=== PATIENT | male | born 1945 | race Caucasian/White ===

== ENCOUNTER 2024-09-09 10:51 | Outpatient (CLI) | payer MEDICARE, SELFPAY ==
--- OUTSIDE RECORDS SUMMARY | 2024-09-09 11:19 | XMS_ITS | Continuity of Care Document ---
Author Organization [place] - 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 Name Role Phone ROSALVA BERMAN Primary Care Provider Assessment Encounter Date Assessment Date Assessment LastModified by Organization Details LastModified Time 08/27/2024 08/27/2024 obtain health trax, repeat course of doxy as pt feels of all the things he has tried recently this has helped the most trial of breztri f/u with pulm to establish as scheduled next week trial of flonase [email or web address] Not available 08/27/2024 15:08:14 Plan of Treatment Reminders Order Date Submit Date Provider Last Modified By Organization Details Last Modified Time Details Appointments OV EST 15 2024 08:15A Kelle Argueta MD Not available Not available Not available Lab None recorded. Referral None recorded. Procedures None recorded. Surgeries None recorded. Imaging None recorded. Medication Orders fluticaso ne propionat e 50 mcg/actua tion nasal spray,yadiel pension 2024 025 [facility], [address] [place] [address], [phone], 08/27/2024 17:32:44 doxycycli ne hyclate 100 mg tablet 2024 025 [facility], [address] [place] [address], [id number], 08/27/2024 17:32:44 Patient TargetsNo targets recorded. Patient InstructionsNo instructions recorded. Reason for Referral None Reported. Problems Name Problem SNOMED Code Status Onset Date Resolution Date Notes Provider Name and Address Organization Details Recorded Time Spinal stenosis of lumbar region 05624766 Active 2023 Fidelina Montgomery null, [place] - [facility] & [place] 4 15:11:51 Degeneration of lumbar intervertebra l disc 14376512 Active 2023 Fidelina Montgomery null, [place] [facility] [facility] & [place] 4 15:12:30 Radicular pain 17348199 Active 2023 Fidelina Montgomery [place] [facility] & [place] 4 15:12:38 Lumbar radiculopathy 760855258 Active 2023 Fidelina Montgomery null, [place] - [place] - [facility] & [place] 4 15:19:48 Lumbar spondylosis 041363697 Active 2023 Fidelina Montgomery null, [place] - [facility] - [facility] & [place] 4 08:57:43 Cholangiectas is 582790895 Active 2022 Not Available [facility] 3 04:32:31 Nausea and vomiting 86438286 Active 2022 Not Available [facility] 3 04:32:31 Pancreatic duct disorder 804844030 Active 2022 Louie Sofia PA-C [address], [place], [address] , [place] - [place] - [place] & [place] 3 09:49:33 Prediabetes 233042548 Active 2023 Rosalva Cazares MD [address], [place], [address] , [place] [facility] - [place] & [place] 4 09:14:00 Hyperlipidemi a 47589777 Active 2023 Rosalva Cazares MD [address], [place], [address] , [place] - [place] & [place] 4 09:14:01 Essential hypertension 74573360 Active 2023 Rosalva Cazares MD [address], [place], [address] , [place] - [place] & [place] 4 09:14:10 Benign prostatic hyperplasia 367149875 Active 2023 Rosalva Cazares MD [address], [place], [address] , [place] - [place] & [place] 4 09:17:03 Eczema of external auditory canal 97349068 Active 2023 Roslava Cazares MD [address], [place], [address] , [place] [facility] - [place] & [place] 4 09:17:04 Thyroid function tests abnormal 686941935 Active 2023 Rosalva Cazares MD [address], [place], [address] , [place] [facility] - [place] & [place] 4 09:18:00 Problem Notes None recorded. Procedures Surgical History Date Name Laterality Status Provider Name and Address Organization Details Recorded Time 04/28/19 21 colonoscopy completed Briseida Mays [place] - [facility] & [place] 06/01/2022 10:40:13 06/16/19 18 cardiac catheterization completed Briseida Mays [place] - [facility] & [place] 06/01/2022 10:39:22 03/06/19 17 cataract surgery completed Briseida Mays [place] - [facility] - [place] & [place] 06/01/2022 10:38:20 03/06/19 15 colonoscopy completed Briseida Mays [place] - [facility] - [place] & [place] 06/01/2022 10:37:44 03/06/19 10 colonoscopy completed Briseida Mays [place] - [facility] - [place] & [place] 06/01/2022 10:37:33 blepharoplasty completed Briseida MCKEON - [facility] - [place] & [place] 06/01/2022 10:36:55 dental surgical procedure completed Haley Melton [place] - [facility] & [place] 11/15/2023 15:33:10 Imaging Results None recorded. Procedure Notes None recorded. Medical Equipment None Reported. Allergies Allergen ID Allergen Name Allergen Category Reaction Reaction Severity Criticality Documentation Date Start Date Code Code System Note Provider Name and Address Organization Details Recorded Time 953058 No known allergy (situatio n) Not available Not available Not available Not available 07/25/2024 53537 6003 [facility] [place] 11:03:07 No known drug allergies Medications Name Sig Start Date Stop Date Status Note LastModified by Organization Details LastModified Time amoxicillin 500 mg capsule Take 1 capsule twice a day by oral route for 20 days. 03/14 completed Not Available Not Available Not Available atorvastati n 40 mg tablet TAKE ONE TABLET BY MOUTH ONCE DAILY active Not Available Not Available No t Available doxycycline hyclate 100 mg capsule Take 1 capsule twice a day by oral route for 10 days. 08/27 completed Not Available Not Available Not Available azithromyci n 250 mg tablet TAKE 2 TABLETS (500 MG) BY ORAL ROUTE ONCE DAILY FOR 1 DAY THEN 1 TABLET (250 MG) BY ORAL ROUTE ONCE DAILY FOR 4 DAYS 04/25 completed Not Available Not Available Not Available benzonatate 200 mg capsule Take 1 capsule 3 times a day by oral route as needed for 7 days. 05/29 completed Not Available Not Available Not Available hydrocodone 5 mg-acetamin ophen 325 mg tablet TAKE ONE TABLET BY MOUTH EVERY SIX HOURS NEEDED FOR PAIN 04/24 completed Not Available Not Available Not Available lisinopril 20 mg tablet TAKE 1 TABLET BY MOUTH TWICE DAILY active Not Available Not Available No t Available prednisone 20 mg tablet take 3 tabs daily for 3 days, 2 tabs daily for 3 days, then 1 tab daiy for 3 days 05/29 completed Not Available Not Available Not Available sildenafil 100 mg tablet Take 1 tablet by oral route as directed. 04/24 completed Not Available Not Available Not Available tamsulosin 0.4 mg capsule Take 2 capsules every day by oral route for 90 days. active Not Available Not Available No t Available hydrocortis one-acetic acid 1 %-2 % ear drops INSTILL 2 DROPS INTO AFFECTED EAR(S) BY OTIC ROUTE 4 TIMES PER DAY 12/27 completed Not Available Not Available Not Available cephalexin 500 mg capsule TAKE ONE CAPSULE BY MOUTH EVERY SIX HOURS 06/13 completed Not Available Not Available Not Available simvastatin 20 mg tablet TAKE ONE TABLET BY MOUTH EVERY DAY 06/13 completed Not Available Not Available Not Available gabapentin 300 mg capsule TAKE ONE CAPSULE BY MOUTH EVERY 8 HOURS DIRECTED active Not Available Not Available No t Available diclofenac sodium 75 mg tablet,nubia yed release Take 1 tablet every 24 hours by oral route as directed for 30 days. 2024 active Not Available Not Available Not Avai lable hydrochloro thiazide 25 mg tablet TAKE ONE TABLET BY MOUTH EVERY MORNING active Not Available Not Available No t Available clobetasol 0.05 % topical ointment Apply a thin layer to affected areas twice daily for 2 weeks. Stop for 1 week. Repeat as needed. active Not Available Not Available No t Available ibuprofen 600 mg tablet TAKE ONE TABLET BY MOUTH EVERY SIX HOURS NEEDED FOR PAIN 04/24 completed Not Available Not Available Not Available albuterol sulfate HFA 90 mcg/actuati on aerosol inhaler inhale 2 puffs every 6 hours As Needed for shortness of breath or wheezing for 90 days active Not Available Not Available No t Available ondansetron 4 mg disintegrat ing tablet dissolve 1 tablet on the tongue Every 8 (Eight) Hours As Needed for Nausea or Vomiting. 12/12 completed Not Available Not Available Not Available fluticasone propionate 50 mcg/actuati on nasal spray,suspe nsion use 1 spray in each nostril daily active Not Available Not Available No t Available doxycycline hyclate 100 mg tablet Take 1 tablet twice a day by oral route for 10 days. active Not Available Not Available No t Available finasteride 5 mg tablet Take 1 tablet every day by oral route. active Not Available Not Available No t Available calcipotrie ne 0.005 % topical ointment Apply a thin layer to affected areas two times daily when flared. active Not Available Not Available No t Available diclofenac 1 % topical gel apply 4 gm to affected area up to 4 times daily 06/13 completed Not Available Not Available Not Available silodosin 8 mg capsule Take 1 capsule by mouth every day 08/15 completed Not Available Not Available Not Available Breztri Aerosphere 160 mcg-9mcg-4. 8mcg/actuat ion HFA aerosol inhaler inhale 2 puffs twice a day for 90 days active Not Available Not Available No t Available Airsupra 90 mcg-80 mcg/actuati on HFA aerosol inhaler 2 inhalatio ns as needed by inhalatio n route. 02/04 completed Not Available Not Available Not Available Vitals Date Recorded Body height Body mass index (BMI) Body weight Body temperature Oxygen saturation Oxygen saturation in Arterial blood by Pulse oximetry Heart rate Systolic And Diastolic Provider Name and Address Organization Details Last Updated DateTime 5 177.8 cm 29.4 kg/m2 24887.4 4 g 99.1 [degF] 95 % 95 % 92 /min 140/62 mm[Hg] Roseanna Buckner [facility] & [place] 5 14:10:06 Social History Question Answer Notes LastModified by Organizat ion Details LastModified Time Tobacco Smoking Status Former Smoker Briseida Mays [facility], [facility] & [place] 06/01/2022 10:45:54 Do You Have An Advance Directive? No [email or web address] Information not available 06/13/2022 Are You Blind Or Do You Have Difficulty Seeing? No [email or web address] Information not available 12/02/2022 What Is Your Level Of Caffeine Consumption? Occasional Information not available 12/12/2022 In The 14 Days Before Symptom Onset, Have You Had Close Contact With A Laboratory-confir med COVID-19 While That Case Was Ill? No Information not available 12/12/2022 In The 14 Days Before Symptom Onset, Have You Had Close Contact With A Person Who Is Under Investigation For COVID-19 While That Person Was Ill? No Information not available 12/12/2022 Have You Been To An Area Known To Be High Risk For COVID-19? No Information not available 12/12/2022 Are You Deaf Or Do You Have Serious Difficulty Hearing? No Wears Hearing Aids Information not available 12/12/2022 Have You Processed Blood Or Body Fluids From An Ebola Virus Disease Patient Without Appropriate PPE? No Information not available 12/12/2022 Do You Reside In Or Have You Traveled To An Area Where Ebola Virus Transmission Is Active? No Information not available 12/12/2022 Have There Been Any Changes To Your Family Or Social Situation? No Information no t available 12/12/2022 When Did You Quit Smoking? 16+yearssince alverto Information not available 12/12/2022 Have You Recently Or Are You Planning To Travel To An Area With Zika Virus? No Information not available 12/12/2022 In General, Would You Say Your Health Is Very Good [email or web address] Information not available 06/13/2022 How Would You Describe The Condition Of Your Mouth And Teeth including False Teeth Or Dentures? Fair [email or web address] Information not available 06/12/2023 In The Past 7 Days, How Many Servings Of Fruits And Vegetables Did You Typically Eat Each Day? (1 Serving = 1 Cup Of Fresh Vegetables, 1 2 Cup Of Cooked Vegetables, Or 1 Medium Piece Of Fruit. 1 Cup = Size Of A Baseball.) 1-2 Servings Per Day [email or web address] Information not available 06/12/2023 In The Past 7 Days, How Many Servings Of High Fiber Or Whole Grain Foods Did You Typically Eat Each Day? (1 Serving = 1 Slice Of 100% Whole Wheat Bread, 1 Cup Of Whole-grain Or High-fiber Gaitc-bt-imp Cereal, 1 2 Cup Of Cooked Cereal Such As Oatmeal, Or 1 2 Cup Of Cooked Brown Rice Or Whole Wheat Pasta.) 1-2 Servings Per Day [email or web address] Information not available 06/12/2023 In The Past 7 Days, How Many Servings Of Fried Or High-fat Foods Did You Typically Eat Each Day? (Examples Include Fried Chicken, Fried Fish, [place], English [place], Potato Chips, York Chips, Doughnuts, Creamy Salad Dressings, And Foods Made With Whole Milk, Cream, Cheese, Or Mayonnaise.) 1-2 Servings Per Day [email or web address] Information not available 06/12/2023 In The Past 7 Days, How Many Sugar-sweetened (not Diet) Beverages Did You Typically Consume Each Day 0 Drinks Per Day [email or web address] Information not available 06/12/2023 Each Night, How Many Hours Of Sleep Do You Usually Get? 6-7 Hours [email or web address] Information not available 06/13/2022 Do You Snore Or Has Anyone Told You That You Snore? Yes [email or web address] Information not available 06/13/2022 In The Past 7 Days, How Often Have You Bland Sleepy During The Daytime? Usually [email or web address] Information not available 06/13/2022 Do You Have Chronic Pain? Yes [email or web address] Information not available 06/13/2022 If Yes, Location Of Pain Back, Legs [email or web address] Information not available 06/12/2023 In The Past 7 Days, How Would You Rate Your Pain? Mild Pain(1-3) [email or web address] Information not available 06/13/2022 Are You In A Pain Management Program? No [email or web address] Information not available 06/13/2022 Do You Take Opioids For Your Pain? No [email or web address] Information not available 06/12/2023 How Often Is Stress A Problem For You In Handling Such Things As: Your Health, Your Finances, Your Family And Social Relationships, Your Work? Sometimes [email or web address] Information not available 06/12/2023 How Often Do You Get The Social And Emotional Support You Need: Usually [email or web address] Information no t available 06/13/2022 In The Past 7 Days, Did You Need Help From Others To Take Care Of Things Such As Laundry And Housekeep- Ing, Banking, Shopping, Using The Telephone, Food Preparation, Transportation, Or Taking Your Own Medications? No [email or web address] Information not available 06/13/2022 Do You Live Alone? No [email or web address] Information not available 06/13/2022 Does Your Home Have Any Fall Risks (un-level Floors, Unfastened Rugs, Poor Lighting, Etc)? No [email or web address] Information not available 06/13/2022 What Was The Date Of Your Most Recent Tobacco Screening? 01/08/2024 [email or web address] Information not available 01/11/2024 What Is Your Current Pack Years? 30ormorepacky ears Information not available 12/12/2022 Do You Use Your Seat Belt Or Car Seat Routinely? Yes Information not available 12/12/2022 At What Age Did You Start Smoking Tobacco? 17 Information not available 12/12/2022 Are You Passively Exposed To Smoke? No Information no t available 12/02/2022 How Much Tobacco Do You Smoke? 1 PPD [email or web address] Information not available 01/11/2024 Has Tobacco Cessation Counseling Been Provided? No Information not available 12/12/2022 How Many Years Have You Smoked Tobacco? 31 Information not available 06/13/2022 Do You Have Difficulty Walking Or Climbing Stairs? No Information not available 12/12/2022 Are You Currently In School? No Information not available 12/12/2022 Sex: Male Functional Status Question Answer Note LastModified by Organizat ion Details LastModified Time Do you use any illicit or recreational drugs? No Information not available 06/01/2022 Do you or have you ever used any other forms of tobacco or nicotine? Yes Information not available 12/12/2022 What is your level of alcohol consumption? Occasional [email or web address] Information not available 12/02/2022 Do you or have you ever used smokeless tobacco? Currently chews tobacco Information not available 06/01/2022 Do you have transportation difficulties? No Information not available 12/12/2022 Are you able to walk? YESWOREST Information not available 12/12/2022 Do you have difficulty doing errands alone? No Information not available 12/12/2022 Are you able to care for yourself? Yes Information n ot available 12/12/2022 Do you have difficulty dressing or bathing? No Information not available 12/12/2022 Do you or have you ever used e-cigarettes or vape? Never used electronic cigarettes Information not available 12/12/2022 What is your exercise level? Occasional [email or web address] Information not available 12/02/2022 Mental Status Question Answer Note LastModified by Organizat ion Details LastModified Time Do you feel stressed (tense, restless, nervous, or anxious, or unable to sleep at night)? [id number] [email or web address] Information not available 06/13/2022 Do you have difficulty concentrating, remembering or making decisions? No Information no t available 12/12/2022 Family History Relationship Description Onset Age of this Age Resolved Age Notes LastModified by Organization Details LastModified Time Father Heart disease [email or web address] Not available 2022 10:14:51 Father Family history of diabetes mellitus [email or web address] Not available 2024 09:02:18 Father Family history of blood coagulation disorder [email or web address] Not available 2024 09:02:18 Father Family member [email or web address] Not available 2024 09:02:18 Father Hypertensive disorder pt. added direct ly (01/07) [email or web address] Not available 01/08/2024 09:13:35 Mother Heart disease [email or web address] Not available 2022 10:14:51 Mother Malignant tumor of breast [email or web address] Not available 2024 09:02:18 Brother Essential hypertension [email or web address] Not available 09:02:18 Brother Hypertensive disorder pt. added direct ly (01/07) [email or web address] Not available 01/08/2024 09:13:35 Medical History Condition Response Diabetes N Heart Problems Other Y Vision or Eye Problems Y Ear or Hearing Problems Y Back Problems Y COPD Y High Cholesterol N Spine Problems Y Obstructive Sleep Apnea Y Hypertension Y Immunizations Vaccine Type Date Status Note Provider Nam e and Address Organization Details Recorded Time Influenza, high-dose, quadrivalent, PF 2 completed Bess oswald [place] - [facility] 08/16/2023 13:23:51 Influenza, high-dose, quadrivalent, PF 0 completed Bess oswald, [place] [facility] [facility] 08/16/2023 13:23:51 Influenza, high-dose, quadrivalent, PF 1 completed Bess oswald [place] [facility] [facility] & [place] 08/16/2023 13:23:51 COVID-19, mRNA, LNP-S, PF, 100 mcg/0.5mL dose or 50 mcg/0.25mL dose 1 completed Bess oswald [place] [facility] [facility] & [place] 08/16/2023 13:23:51 COVID-19, mRNA, LNP-S, PF, 100 mcg/0.5mL dose or 50 mcg/0.25mL dose 1 completed Bess Cullen null[place] [facility] - [place] & [place] 08/16/2023 13:23:51 COVID-19, mRNA, LNP-S, PF, 100 mcg/0.5mL dose or 50 mcg/0.25mL dose 0 completed Bess [place] null[place] - [place] & [place] 08/16/2023 13:23:51 Tdap 6 completed Bess [place] & [place] 08/16/2023 13:23:51 Influenza, high-dose, trivalent, PF 8 completed Bess [place] [facility] [place] 08/16/2023 13:23:51 Influenza, high-dose, trivalent, PF 7 completed Bess [place] [facility] [place] 08/16/2023 13:23:51 Hep A, adult 8 completed Bess [place] - [place] & [place] 08/16/2023 13:23:51 Influenza, adjuvanted, quadrivalent, PF 3 completed Bess [place] & [place] 08/16/2023 13:23:51 pneumococcal polysaccharide PPV23 3 completed Bess [place] & [place] 08/16/2023 13:23:51 Influenza, adjuvanted, trivalent, PF 4 completed Rosalva Cazares MD [address] , [place], [address], [place] [facility] [facility] [place] 12/28/2023 12:54:14 RSV, bivalent, protein subunit RSVpreF, diluent reconstituted, 0.5 mL, PF 4 completed Bess [place] - [place] & [place] 04/25/2024 13:11:01 COVID-19, mRNA, LNP-S, PF, jose-sucrose, 30 mcg/0.3 mL 4 completed Bess [facility], [place] - [place] - [place] & [place] 04/25/2024 13:11:01 Past Encounters Encounter ID Performer Location Encounter Start Date Encounter Closed Date Diagnosis/Indication Diagnosis SNOMED-CT Code Diagnosis ICD10 Code Diagnosis Note [id number] JOHN GARCIA PA-C [facility] [address] [place] [address] 08/08/2024 10:38:18 08/08/2024 11:21:28 Pain of left hip joint 7070358442 79209 M25.552 - I have reviewed the left hip x-ray, which revealed mild degenerati ve joint disease. Lumbar spondylosis 86520 0009 M47.816 - The patient is 1 week S/P bilateral lumbar RFA at L4-S1. The patient voices that he is uncertain regarding efficacy at this time. 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 I informed the patient that more time is likely required to realize the extent of benefit.- I will follow up in 1 month to reassess pain. Spinal gene nosis of lumbar region 89265140 M99.53 M48.061 - The previously (01/24/24) performed lumbar epidural was successful in decreasing radicular low back pain by greater than 50%. Degenerati on of lumbar intervertebral disc 80144808 M51.369 Lumbar radiculopathy 128 162214 M54.16 - I have reviewed the lumbar MRI, which revealed multilevel disc degenerati on and spondylosi s with areas of neural foraminal narrowing (worst bilaterall y at L4-L5); central canal stenosis at L2-L3 and L3-L4; right L4 nerve root impingemen t and probable right L3 nerve root impingemen t.- If radicular low back pain worsens, I will likely discuss the possibilit y of scheduling a TFESI versus repeating a lumbar epidural (interlami batool). Trochanter ic bursitis of left hip [id number] 28599 M70.62 - The patient is S/P (04/03/24) left GTB injection, which was successful (greater than 50% pain relief). Lumbago with sciatica 20 6381825 M54.40 - Refill Diclofenac 75 mg Q12 hours prn- The patient recently followed up with cardiology , whom reportedly recommende d that the patient continue Diclofenac rather than Celecoxib. Radicular pain 08995217 M54.10 - Refill Gabapentin 300 mg Q8 hours [id number] Rosalva Cazares MD [facility] [place] [address] [place] [address] 08/27/2024 14:02:47 08/27/2024 15:06:09 Cough 04432477 R05.9 Dysfunctio n of right eustachian tube 9458952961 365864 H69.91 Health Concerns Section Related Observation LastModified by Organization Detai ls LastModified Time None Recorded Concern Status LastModified by Organization Details LastModified Time None Recorded Payers Encounter Date Sequence Insurance Name Policy Number Policy Baugh Covered Member ID Baugh Member ID Guarantor Name 08/27/2024 1 [place]MEDICARE REPLACEMENT HMO) [id number] Nash Galeas [id number] Nash Galeas Notes Date Note Type Note Provider Name and Address Organization Details Recorded Time 08/27/2024 text/html He notes that he did improve with the course of doxy we had recently used and felt 90% better but the cough gradually returned and 3 days ago he had worsening cough and phlegm production. He does feel fatigued. He denies any known sick contacts.He has had a persistent waxing and waning picture of URI type illness over the past couple months. He denies known hx of seasonal or environmental allergens but does have chronic respiratory illness that was unable to be categorized by his previous ip technology transactions attorney. He has a pending appt next week with a new pulm to establish care. Rosalva Cazares MD [address], [place], [address], [facility] - [place] - [place] & [place] 08/27/2024 15:08:21
--- OUTSIDE RECORDS SUMMARY | 2024-09-09 11:19 | XMS_ITS | Clinical Summary ---
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
--- OUTSIDE RECORDS SUMMARY | 2024-09-09 11:19 | XMS_ITS | Data Portability ---
Author Organization [place] - [facility] - [place] [facility] ADMIN Address [address] [place] [id number] Care Team Providers Care Head Cleaning Porter Name Role Phone ROSALVA BERMAN Primary Care Provider Assessment Encounter Date Assessment Date Assessment LastModified by Organization Details LastModified Time 05/02/2024 05/02/2024 Mr. Galeas was referred by Dr. Cazares for management of chronic low back pain. The patient denies DM, anti-coagulant use, and history of MRSA. [email or web address] Not available 05/02/2024 12:48:29 05/29/2024 05/29/2024 Mr. Galeas was referred by Dr. Cazares for management of chronic low back pain. The patient denies DM, anti-coagulant use, and history of MRSA. patient returns back to schedule for the radiofrequency ablation [email or web address] Not available 06/05/2024 13:39:35 07/25/2024 07/25/[address] scan, and prior testing. We decided that we may try for a course of doxycycline for anti-inflammatory benefit as well as potential antimicrobial efforts but discussed that symptoms may be fungal in nature versus irritant versus allergic. Testing is ordered as noted below but discussed with patient that more advanced testing for allergies likely is warranted and maybe more accurate. We will also plan for him to try cetirizine nightly. We have discussed workup options for evaluating acid reflux, such as laryngoscopy and EGD. There is no prior evidence of a hiatal hernia on his previous CT scans. Patient is agreeable to consultation with pulmonology. We also plan for a short-term trial of breast previous sample. Not available 07/25/2024 13:06:01 08/08/2024 08/08/2024 Mr. Galeas was referred by Dr. Cazares for management of chronic low back pain. The patient denies DM, anti-coagulant use, and history of MRSA. The patient presents to the clinic today for a medication refill. [email or web address] Not available 08/11/2024 20:14:48 08/27/2024 08/27/2024 obtain health trax, repeat course of doxy as pt feels of all the things he has tried recently this has helped the most trial of breztri f/u with pulm to establish as scheduled next week trial of flonase Not available 08/27/2024 15:08:14 Plan of Treatment Reminders Order Date Submit Date Provider Last Modified By Organization Details Last Modified Time Details Appointments OV EST 15 2024 08:15A M Wilmer Argueta MD Not available Not available Not available Lab CBC w/ auto diff 2024 025 [place] [facility] ([place] [address] [place], [address], 07/30/2024 08:36:05 respirato ry allergen panel - [facility] 2024 025 [place] [facility] ([place] [address] [place], [address], 07/30/2024 08:36:06 Referral pulmonolo gist referral 2024 025 [email or web address] Lety Damon MD, [address], [place], [address], 08/29/2024 15:21:58 Procedures lumbar radiofreq uency ablation (PROC) - [address], [address], BLRF L4-S1 2024 025 [email or web address] Wilmer Argueta MD, [address], [address], [place], [address], 07/30/2024 15:56:59 Surgeries None recorded. Imaging None recorded. Medication Orders fluticaso ne propionat e 50 mcg/actua tion nasal spray,yadiel pension 2024 025 [facility], [address] [place] [address], [id number], 08/27/2024 17:32:44 doxycycli ne hyclate 100 mg tablet 2024 025 [facility], [address] [place] [address], [id number], 08/27/2024 17:32:44 gabapenti n 300 mg capsule 2024 025 [facility], [address] [place] [address], [id number], 08/15/2024 11:50:12 diclofena c sodium 75 mg tablet,de layed release 2024 025 [facility], [address] [place] [address], [id number], 08/09/2024 12:41:58 doxycycli ne hyclate 100 mg capsule 2024 025 [facility], [address] [place] [address], [id number], 08/27/2024 14:21:44 gabapenti n 300 mg capsule 2024 025 [facility], [address] [place] [address], [id number], 05/31/2024 11:52:26 diclofena c sodium 75 mg tablet,de layed release 2024 025 [facility], [address] [place] [address], [id number], 05/31/2024 11:52:26 Patient TargetsNo targets recorded. Patient InstructionsNo instructions recorded. Reason for Referral Screening Tech Referral for P ersistent cough Referring Physician: Rosalva Cazares, Family Medicine, Encounter Date: 07/25/2024 Results Created Date Observation Date Name Description Value Unit Range Abnormal Flag Note LastModifiedBy Organization Detail LastModifiedTime 04/25/19 25 04/25/2024 influ regan virus A + B + SARS- CoV-2 (COVI D19) Ag panel , rapid IA, upper respi rator y speci men FLU A negati ve Not Available [address], [place], [address], 04/25/2024 13:54:25 04/25/19 25 04/25/2024 influ regan virus A + B + SARS- CoV-2 (COVI D19) Ag panel , rapid IA, upper respi rator y speci men FLU B negati ve Not Available [address], [place], [address], 04/25/2024 13:54:25 04/25/19 25 04/25/2024 influ regan virus A + B + SARS- CoV-2 (COVI D19) Ag panel , rapid IA, upper respi rator y speci men SARS COV + SARS OV 2 negati ve Not Available [address], [place], [address], 04/25/2024 13:54:25 07/26/19 25 07/26/2024 CBC WITH DIFFE RENTI AL/PL ATELE T WBC 6.6 x10e3 /uL 3.4-10 .8 normal Not Available [facility] ([facility]) [address] [facility], [place], [address], 07/30/2024 08:36:05 07/26/19 25 07/26/2024 CBC WITH DIFFE RENTI AL/PL ATELE T RBC 4.61 x10e6 /uL 4.14-5 .80 normal Not Available [facility] ([facility]) [address] [facility], [place], [address], 07/30/2024 08:36:05 07/26/19 25 07/26/2024 CBC WITH DIFFE RENTI AL/PL ATELE T hemoglobin 13.5 g/dL 13.0-1 7.7 normal Not Available [facility] ([facility]) [address] [place], [address], 07/30/2024 08:36:05 07/26/19 25 07/26/2024 CBC WITH DIFFE RENTI AL/PL ATELE T hematocrit 42.3 % 37.5-5 1.0 normal Not Available [facility] ([facility]) [address] [place], [address], 07/30/2024 08:36:05 07/26/19 25 07/26/2024 CBC WITH DIFFE RENTI AL/PL ATELE T MCV 92 fL 79-97 normal Not Available [facility] ([facility]) [address] [place], [address], 07/30/2024 08:36:05 07/26/19 25 07/26/2024 CBC WITH DIFFE RENTI AL/PL ATELE T MCH 29.3 pg 26.6-3 3.0 normal Not Available [facility] ([facility]) [address] [place], [address], 07/30/2024 08:36:05 07/26/19 25 07/26/2024 CBC WITH DIFFE RENTI AL/PL ATELE T MCHC 31.9 g/dL 31.5-3 5.7 normal Not Available [facility] ([facility]) [address] [place], [address], 07/30/2024 08:36:05 07/26/19 25 07/26/2024 CBC WITH DIFFE RENTI AL/PL ATELE T RDW 11.9 % 11.6-1 5.4 Not Available [facility] ([facility]) [address] [place], [address], 07/30/2024 08:36:05 07/26/19 25 07/26/2024 CBC WITH DIFFE RENTI AL/PL ATELE T platelets 196 x10e3 /uL 150-45 0 normal Not Available [facility] ([facility]) [address] [facility], [place], [address], 07/30/2024 08:36:05 07/26/19 25 07/26/2024 CBC WITH DIFFE RENTI AL/PL ATELE T neutrophils 63 % not estab. normal Not Available [facility] ([facility]) [address] [facility], [place], [address], 07/30/2024 08:36:05 07/26/19 25 07/26/2024 CBC WITH DIFFE RENTI AL/PL ATELE T lymphs 22 % not estab. normal Not Available [facility] ([facility]) [address] [facility], [place], [address], 07/30/2024 08:36:05 07/26/19 25 07/26/2024 CBC WITH DIFFE RENTI AL/PL ATELE T monocytes 11 % not estab. normal Not Available [facility] ([facility]) [address] [facility], [place], [address], 07/30/2024 08:36:05 07/26/19 25 07/26/2024 CBC WITH DIFFE RENTI AL/PL ATELE T eos 3 % not estab. normal Not Available [facility] ([facility]) [address] [facility], [place], [address], 07/30/2024 08:36:05 07/26/19 25 07/26/2024 CBC WITH DIFFE RENTI AL/PL ATELE T basos 1 % not estab. normal Not Available [facility] ([facility]) [address] [facility], [place], [address], 07/30/2024 08:36:05 07/26/19 25 07/26/2024 CBC WITH DIFFE RENTI AL/PL ATELE T immature cells GLASS RIBBON MACHINE OPERATOR Not Available [facility] ([facility]) [address] [place], [address], 07/30/2024 08:36:05 07/26/19 25 07/26/2024 CBC WITH DIFFE RENTI AL/PL ATELE T neutrophils (absolute) 4.2 x10e3 /uL 1.4-7. 0 normal Not Available [facility] ([facility]) [address] [place], [address], 07/30/2024 08:36:05 07/26/19 25 07/26/2024 CBC WITH DIFFE RENTI AL/PL ATELE T lymphs (absolute) 1.5 x10e3 /uL 0.7-3. 1 normal Not Available [facility] ([facility]) [address] [place], [address], 07/30/2024 08:36:05 07/26/19 25 07/26/2024 CBC WITH DIFFE RENTI AL/PL ATELE T monocytes(ab solute) 0.7 x10e3 /uL 0.1-0. 9 normal Not Available [facility] ([facility]) [address] [place], [address], 07/30/2024 08:36:05 07/26/19 25 07/26/2024 CBC WITH DIFFE RENTI AL/PL ATELE T eos (absolute) 0.2 x10e3 /uL 0.0-0. 4 normal Not Available [facility] ([facility]) [address] [place], [address], 07/30/2024 08:36:05 07/26/19 25 07/26/2024 CBC WITH DIFFE RENTI AL/PL ATELE T baso (absolute) 0.0 x10e3 /uL 0.0-0. 2 normal Not Available [facility] ([facility]) [address] [place], [address], 07/30/2024 08:36:05 07/26/19 25 07/26/2024 CBC WITH DIFFE RENTI AL/PL ATELE T immature granulocytes 0 % not estab. Not Available [facility] ([facility]) [address] [facility], [place], [address], 07/30/2024 08:36:05 07/26/19 25 07/26/2024 CBC WITH DIFFE RENTI AL/PL ATELE T immature grans (abs) 0.0 x10e3 /uL 0.0-0. 1 Not Available [facility] ([facility]) [address] [facility], [place], [address], 07/30/2024 08:36:05 07/26/19 25 07/26/2024 CBC WITH DIFFE RENTI AL/PL ATELE T NRBC GLASS RIBBON MACHINE OPERATOR Not Available [facility] ([facility]) [address] [facility], [place], [address], 07/30/2024 08:36:05 07/26/19 25 07/26/2024 CBC WITH DIFFE RENTI AL/PL ATELE T hematology comments: GLASS RIBBON MACHINE OPERATOR Not Available [facility] ([facility]) [address] [facility], [place], [address], 07/30/2024 08:36:05 07/26/19 25 07/25/2024 ALLER GENS W/TOT AL IGE AREA 2 class description COMMEN T Level s of Speci fic IgE Class Descr iptio n of Class ----- ----- ----- ----- ----- -- ----- ----- ----- ----- ----- < 0.10 0 Negat rama 0.10 - 0.31 0/I Equiv ocal/ Low 0.32 - 0.55 I Low 0.56 - 1.40 II Moder ate 1.41 - 3.90 III High 3.91 - 19.00 IV Very High 19.01 - 100.0 0 V Very High >100. 00 Very High Not Available [facility] ([facility]) [address] [place], [address], 07/30/2024 08:36:06 07/26/1907/30/2024 ALLER GENS W/TOT AL IGE AREA 2 immunoglobul in E, total 6 IU/mL 6-495 Not Available [facility] ([facility]) [address] [place], [address], 07/30/2024 08:36:06 07/26/19 25 07/30/2024 ALLER GENS W/TOT AL IGE AREA 2 Q921-CbA D pteronyssinu s <0.10 kU/L class 0 Not Available [facility] ([facility]) [address] [place], [address], 07/30/2024 08:36:06 07/26/1907/30/2024 ALLER GENS W/TOT AL IGE AREA 2 R759-KbK D farinae <0.10 kU/L class 0 Not Available [facility] ([facility]) [address] [place], [address], 07/30/2024 08:36:06 07/26/19 25 07/30/2024 ALLER GENS W/TOT AL IGE AREA 2 J828-PyL CAT dander <0.10 kU/L class 0 Not Available [facility] ([facility]) [address] [place], [address], 07/30/2024 08:36:06 07/26/19 25 07/30/2024 ALLER GENS W/TOT AL IGE AREA 2 S942-XeP dog dander <0.10 kU/L class 0 Not Available [facility] ([facility]) [address] [place], [address], 07/30/2024 08:36:06 07/26/19 25 07/30/2024 ALLER GENS W/TOT AL IGE AREA 2 Y179-TsA mouse urine <0.10 kU/L class 0 Not Available [facility] ([facility]) [address] [place], [address], 07/30/2024 08:36:06 07/26/19 25 07/30/2024 ALLER GENS W/TOT AL IGE AREA 2 m114-UqM bermuda grass <0.10 kU/L class 0 Not Available [facility] ([facility]) [address] [place], [address], 07/30/2024 08:36:06 07/26/19 25 07/30/2024 ALLER GENS W/TOT AL IGE AREA 2 s582-SbV nasim grass <0.10 kU/L class 0 Not Available [facility] ([facility]) [address] [facility], [place], [address], 07/30/2024 08:36:06 07/26/19 25 07/30/2024 ALLER GENS W/TOT AL IGE AREA 2 f728-KnU luis miguel grass <0.10 kU/L class 0 Not Available [facility] ([facility]) [address] [place], [address], 07/30/2024 08:36:06 07/26/19 25 07/30/2024 ALLER GENS W/TOT AL IGE AREA 2 O303-HdO cockroach, tajik <0.10 kU/L class 0 Not Available [facility] ([facility]) [address] [place], [address], 07/30/2024 08:36:06 07/26/19 25 07/30/2024 ALLER GENS W/TOT AL IGE AREA 2 K406-OpA penicillium chrysogen <0.10 kU/L class 0 Not Available [facility] ([facility]) [address] [place], [address], 07/30/2024 08:36:06 07/26/19 25 07/30/2024 ALLER GENS W/TOT AL IGE AREA 2 C683-NaD cladosporium herbarum <0.10 kU/L class 0 Not Available [facility] ([facility]) [address] [place], [address], 07/30/2024 08:36:06 07/26/19 25 07/30/2024 ALLER GENS W/TOT AL IGE AREA 2 S136-OoO aspergillus fumigatus <0.10 kU/L class 0 Not Available [facility] ([facility]) [address] [place], [address], 07/30/2024 08:36:06 07/26/19 25 07/30/2024 ALLER GENS W/TOT AL IGE AREA 2 O916-QyU alternaria alternata <0.10 kU/L class 0 Not Available [facility] ([facility]) [address] [place], [address], 07/30/2024 08:36:06 07/26/19 25 07/30/2024 ALLER GENS W/TOT AL IGE AREA 2 O308-DxW maple/box elder <0.10 kU/L class 0 Not Available [facility] ([facility]) [address] [place], [address], 07/30/2024 08:36:06 07/26/19 25 07/30/2024 ALLER GENS W/TOT AL IGE AREA 2 R090-WkQ common silver birch <0.10 kU/L class 0 Not Available [facility] ([facility]) [address] [facility] [place], [address], 07/30/2024 08:36:06 07/26/19 25 07/30/2024 ALLER GENS W/TOT AL IGE AREA 2 J862-QgE cedar, mountain <0.10 kU/L class 0 Not Available [facility] ([facility] [address] [facility] [place], [address], 07/30/2024 08:36:06 07/26/19 25 07/30/2024 ALLER GENS W/TOT AL IGE AREA 2 T278-WpR oak, white <0.10 kU/L class 0 Not Available [facility] ([facility]) [address] [place], [address], 07/30/2024 08:36:06 07/26/19 25 07/30/2024 ALLER GENS W/TOT AL IGE AREA 2 D916-NtV elm, cameroonian <0.10 kU/L class 0 Not Available [facility] ([facility]) [address] [place], [address], 07/30/2024 08:36:06 07/26/19 25 07/30/2024 ALLER GENS W/TOT AL IGE AREA 2 L042-XgZ cottonwood <0.10 kU/L class 0 Not Available [facility] ([facility]) [address] [place], [address], 07/30/2024 08:36:06 07/26/19 25 07/30/2024 ALLER GENS W/TOT AL IGE AREA 2 H947-ApJ pecan, hickory <0.10 kU/L class 0 Not Available [facility] ([facility]) [address] [place], [address], 07/30/2024 08:36:06 07/26/19 25 07/30/2024 ALLER GENS W/TOT AL IGE AREA 2 G725-TkF white mulberry <0.10 kU/L class 0 Not Available [facility] ([facility]) [address] [place], [address], 07/30/2024 08:36:06 07/26/19 25 07/30/2024 ALLER GENS W/TOT AL IGE AREA 2 V930-UoA ragweed, short <0.10 kU/L class 0 Not Available [facility] ([facility]) [address] [place], [address], 07/30/2024 08:36:06 07/26/19 25 07/30/2024 ALLER GENS W/TOT AL IGE AREA 2 K869-GfD pigweed, common <0.10 kU/L class 0 Not Available [facility] ([facility]) [address] [place], [address], 07/30/2024 08:36:06 07/26/19 25 07/30/2024 ALLER GENS W/TOT AL IGE AREA 2 M166-YtN sheep sorrel <0.10 kU/L class 0 Not Available [facility] ([facility]) [address] [facility], [place], [address], 07/30/2024 08:36:06 08/28/19 25 08/29/2024 PNEUM ONIA streptococcu s pyogenes (group A strep) 0 ppm 19.961 - 24.689 normal Not Detec sophia Not Available [facility] [address], [place], [address], 08/29/2024 09:54:34 08/28/19 25 08/29/2024 PNEUM ONIA streptococcu s pneumoniae 0 ppm 19.961 - 24.689 normal Not Detec sophia Not Available [facility] [address], [place], [address], 08/29/2024 09:54:34 08/28/19 25 08/29/2024 PNEUM ONIA streptococcu s agalactiae (group B strep) 0 ppm 19.961 - 24.689 normal Not Detec sophia Not Available [facility] [address], [place], [address], 08/29/2024 09:54:34 08/28/19 25 08/29/2024 PNEUM ONIA staphylococc us aureus 28.811 ppm 19.961 - 24.689 abnormal Detec sophia Not Available [facility] [address], [place], [address], 08/29/2024 09:54:34 08/28/19 25 08/29/2024 PNEUM ONIA serratia marcescens 0 ppm 19.961 - 24.689 normal Not Detec sophia Not Available [facility] [address], [place], [address], 08/29/2024 09:54:34 08/28/19 25 08/29/2024 PNEUM ONIA respiratory syncytial virus (rsvb_VI9999 0015_po) 0 ppm 23.000 - 31.722 normal Not Detec sophia Not Available [facility] [address], [place], [address], 08/29/2024 09:54:34 08/28/1908/29/2024 PNEUM ONIA pseudomonas aeruginosa 0 ppm 19.961 - 24.689 normal Not Detec sophia Not Available [facility] [address], [place], [address], 08/29/2024 09:54:34 08/28/19 25 08/29/2024 PNEUM ONIA proteus mirabilis, vulgaris 0 ppm 19.961 - 24.689 normal Not Detec sophia Not Available [facility] [address], [place], [address], 08/29/2024 09:54:34 08/28/19 25 08/29/2024 PNEUM ONIA parainfluenz a virus (types 1, 2, 3, 4) 0 ppm 23.000 - 31.313 normal Not Detec sophia Not Available [facility] [address], [place], [address], 08/29/2024 09:54:34 08/28/1908/29/2024 PNEUM ONIA mycoplasma pneumoniae 0 ppm 19.961 - 24.689 normal Not Detec sophia Not Available [facility] [address], [place], [address], 08/29/2024 09:54:34 08/28/19 25 08/29/2024 PNEUM ONIA moraxella catarrhalis 0 ppm 19.961 - 24.689 normal Not Detec sophia Not Available [facility] [address], [place], [address], 08/29/2024 09:54:34 08/28/19 25 08/29/2024 PNEUM ONIA legionella pneumophila 0 ppm 19.961 - 24.689 normal Not Detec sophia Not Available [facility] [address], [place], [address], 08/29/2024 09:54:34 08/28/19 25 08/29/2024 PNEUM ONIA klebsiella pneumoniae, oxytoca 0 ppm 19.961 - 24.689 normal Not Detec sophia Not Available [facility] [address], [place], [address], 08/29/2024 09:54:34 08/28/19 25 08/29/2024 PNEUM ONIA influenza virus B 0 ppm 23.000 - 30.081 normal Not Detec sophia Not Available [facility] [address], [place], [address], 08/29/2024 09:54:34 08/28/19 25 08/29/2024 PNEUM ONIA human metapneumovi cherry 0 ppm 23.000 - 32.210 normal Not Detec sophia Not Available [facility] [address], [place], [address], 08/29/2024 09:54:34 08/28/19 25 08/29/2024 PNEUM ONIA haemophilus influenzae 22.446 ppm 19.961 - 24.689 abnormal Detec sophia Not Available [facility] [address], [place], [address], 08/29/2024 09:54:34 08/28/19 25 08/29/2024 PNEUM ONIA escherichia coli 0 ppm 19.961 - 24.689 normal Not Detec sophia Not Available [facility] [address], [place], [address], 08/29/2024 09:54:34 08/28/1908/29/2024 PNEUM ONIA enterovirus D68 0 ppm 23.000 - 32.117 normal Not Detec sophia Not Available [facility] [address], [place], [address], 08/29/2024 09:54:34 08/28/19 25 08/29/2024 PNEUM ONIA coronaviruse s (229E, nl63, hku1, oc43) (g_betacoron avirus_1_g_c oronavirus_h ku1) 0 ppm 23.000 - 31.416 normal Not Detec sophia Not Available [facility] [address], [place], [address], 08/29/2024 09:54:34 08/28/19 25 08/29/2024 PNEUM ONIA chlamydia pneumoniae 0 ppm 19.961 - 24.689 normal Not Detec sophia Not Available [facility] [address], [place], [address], 08/29/2024 09:54:34 08/28/19 25 08/29/2024 PNEUM ONIA bordetella pertussis, parapertussi s, bronchisepti ca 0 ppm 19.961 - 24.689 normal Not Detec sophia Not Available [facility] [address], [place], [address], 08/29/2024 09:54:34 08/28/19 25 08/29/2024 PNEUM ONIA acinetobacte r baumannii 0 ppm 19.961 - 24.689 normal Not Detec sophia Not Available [facility] [address], [place], [address], 08/29/2024 09:54:34 08/28/19 25 08/29/2024 PNEUM ONIA covid-19 coronavirus (sars-cov-2) 0 ppm 23.000 - 32.500 normal Not Detec sophia Not Available [facility] [address], [place], [address], 08/29/2024 09:54:34 08/28/19 25 08/29/2024 PNEUM ONIA rhinovirus/e nterovirus (RV_2of2_VI9 9990017_po) 0 ppm 23.000 - 32.985 normal Not Detec sophia Not Available [facility] [address], [place], [address], 08/29/2024 09:54:34 08/28/19 25 08/29/2024 PNEUM ONIA adenovirus (adv_1of2_VI 99990001_po) 0 ppm 23.000 - 31.943 normal Not Detec sophia Not Available [facility] [address], [place], [address], 08/29/2024 09:54:34 08/28/19 25 08/29/2024 PNEUM ONIA enterobacter aerogenes, cloacae 0 ppm 19.961 - 24.689 normal Not Detec sophia Not Available [facility] [address], [place], [address], 08/29/2024 09:54:34 04/25/19 25 04/25/2024 XR, chest , 2 view No observ ation record ed. [facility] (Centralized Scheduling) [address] [facility], [place], [address], 04/26/2024 08:50:05 04/25/19 25 04/25/2024 XR, chest , 2 view [facility] [address] [place] [address] Phone: Fax: Name: MATTHEW GALEAS Exam Date: 025 : [birth year] Age 79 years Gender : M Access ion: [id number] Physic alexander: ROSALVA CAZARES Facili ty: [facility] Facili ty HSV: Outpat ient Exam: CHEST 2 VIEWS Chest X Ray: 2 Views includ ing DEEPA and sandra ma chest CLINIC AL INDICA TION: Male, 79 years old. persis tent cough, chroni c cough COMPAR BREANNE: None. Findin gs: Trache a and medias tinum are midlin e. Cardia c silhou ette is within normal limits . There is no focal lung consol idatio n or effusi on. Impres jannet: Lungs are clear. Electr onical ly signed by: Eloina James MD 2024 07:42 PM EST RP Workst ation: ARHWRS 15PRR Dictat ed By: Eloina James Transc ribed By: Transc ribed On: 025 3:22 PM Electr onical ly signed by: Eloina James 025 Thank you for referr MATTHEW Britt to [facility]. Legall y authen ticate d by DANICA Bains 0 04-25 15:22: 15 CC'ed Logic: Orderi ng Provid er: CULLEN BLACKWELL CC Provid er: CULLEN BLACKWELL Attend ing Provid er: CULLEN BLACKWELL Admitt ing Provid er: CULLEN BLACKWELL [id number] [facility] [address], [place], [address], 04/26/2024 08:50:19 05/02/19 25 05/02/2024 LDCT, chest , for lung cance r scree phuong No observ ation record ed. [facility] ([facility]) [address], [place], [address], 05/02/2024 16:42:42 Result Notes None recorded. Problems Name Problem SNOMED Code Status Onset Date Resolution Date Notes Provider Name and Address Organization Details Recorded Time Spinal stenosis of lumbar region 41812726 Active 2023 MIKE Baldwin - [facility] - [place] & [place] 11/07/202 4 15:11:51 Degeneration of lumbar intervertebra l disc 82819575 Active 2023 Fidelinacarol [place] null, [place] - [facility] & [place] 4 15:12:30 Radicular pain 90957303 Active 2023 Fidelinacarol [place] null, [place] - [facility] - [facility] & [place] 4 15:12:38 Lumbar radiculopathy 660084261 Active 2023 Fidelina [place] null, [place] - [facility] - [facility] & [place] 4 15:19:48 Lumbar spondylosis 281107119 Active 2023 Fidelina [place] null, [place] - [facility] - [facility] & [place] 4 08:57:43 [place] is 348181386 Active 2022 Not Available [facility] 3 04:32:31 Nausea and vomiting 90540706 Active 2022 Not Available [facility] 3 04:32:31 Pancreatic duct disorder 171674568 Active 2022 Louie Sofia PA-C [address], [place], [address] , [place] [facility] - [place] & [place] 3 09:49:33 Prediabetes 462846530 Active 2023 Rosalva Cazares MD [address], [place], [address] , [place] [facility] 4 09:14:00 Hyperlipidemi a 51845175 Active 2023 Rosalva Cazares MD [address], [place], [address] , [place] 4 09:14:01 Essential hypertension 57843856 Active 2023 Rosalva Cazares MD [address], [place], [address] , [place] [facility] 4 09:14:10 Benign prostatic hyperplasia 208184652 Active 2023 Rosalva Cazares MD [address] , [place], [address] , [place] [facility] [place] 4 09:17:03 Eczema of external auditory canal 39517181 Active 2023 Rosalva Cazares MD [address] , [place], [address] , [place] [facility] 4 09:17:04 Thyroid function tests abnormal 829956963 Active 2023 Rosalva Cazares MD [address] , [place], [address] , [place] [facility] 09:18:00 Problem Notes None recorded. Procedures Surgical History Date Name Laterality Status Provider Name and Address Organization Details Recorded Time 04/28/19 21 colonoscopy completed Briseida Tabatha [place] [facility] & [place] 06/01/2022 10:40:13 06/16/19 18 cardiac catheterization completed Briseida Tabatha [place] [facility] [facility] & [place] 06/01/2022 10:39:22 03/06/19 17 cataract surgery completed Briseida Tabatha [place] [facility] & [place] 06/01/2022 10:38:20 03/06/19 15 colonoscopy completed Briseida Tabatha [place] [facility] & [place] 06/01/2022 10:37:44 03/06/19 10 colonoscopy completed Briseida Tabatha [place] [facility] 06/01/2022 10:37:33 blepharoplasty completed Briseida Tabatha [place] [facility] 06/01/2022 10:36:55 dental surgical procedure completed Haley Rothakash [place] [facility] [facility] & [place] 11/15/2023 15:33:10 Imaging Results None recorded. Procedure Notes None recorded. Medical Equipment None Reported. Allergies Allergen ID Allergen Name Allergen Category Reaction Reaction Severity Criticality Documentation Date Start Date Code Code System Note Provider Name and Address Organization Details Recorded Time [id number] No known allergy (situatio n) Not available Not available Not available Not available 07/25/2024 [id number] SNOMED [facility], [place] - [facility] - [place] & [place] 11:03:07 No known drug allergies Medications Name [...] Details Last Updated DateTime 5 177.8 cm 30.4 kg/m2 36730.5 8 g 98.2 [degF] 97 % 97 % 74 /min 154/69 mm[Hg] Elinor Baptiste [facility] & [place] 5 09:11:26 Date Recorded Body height Body mass index (BMI) Body weight Body temperature Oxygen saturation Oxygen saturation in Arterial blood by Pulse oximetry Heart rate Systolic And Diastolic Provider Name and Address Organization Details Last Updated DateTime 5 177.8 cm 31 kg/m2 56402.2 3 g 97.3 [degF] 96 % 96 % 81 /min 166/72 mm[Hg] Italia Bates [facility] & [place] 5 08:50:34 Date Recorded Body height Body mass index (BMI) Body weight Body temperature Oxygen saturation Oxygen saturation in Arterial blood by Pulse oximetry Heart rate Systolic And Diastolic Provider Name and Address Organization Details Last Updated DateTime 5 177.8 cm 30.6 kg/m2 70174.1 7 g 97.8 [degF] 95 % 95 % 81 /min 134/84 mm[Hg] Bess Cullen [facility] & [place] 5 11:08:00 Date Recorded Body height Body mass index (BMI) Body weight Body temperature Oxygen saturation Oxygen saturation in Arterial blood by Pulse oximetry Heart rate Systolic And Diastolic Provider Name and Address Organization Details Last Updated DateTime 5 177.8 cm 29.6 kg/m2 26744.4 7 g 97.7 [degF] 96 % 96 % 71 /min 162/75 mm[Hg] Velinda Tamera [facility] & [place] 5 10:59:52 Date Recorded Body height Body mass index (BMI) Body weight Body temperature Oxygen saturation Oxygen saturation in Arterial blood by Pulse oximetry Heart rate Systolic And Diastolic Provider Name and Address Organization Details Last Updated DateTime 5 177.8 cm 29.4 kg/m2 81741.4 4 g 99.1 [degF] 95 % 95 % 92 /min 140/62 mm[Hg] Roseanna Buckner [facility] & [place] 5 14:10:06 Social History Question Answer Notes LastModified by Organizat ion Details LastModified Time Tobacco Smoking Status Former Smoker Briseida Mays null, [facility] & [place] 06/01/2022 10:45:54 Do You Have An Advance Directive? No [email or web address] Information not available 06/13/2022 Are You Blind Or Do You Have Difficulty Seeing? No [email or web address] Information not available 12/02/2022 What Is Your [...] 12/12/2022 When Did You Quit Smoking? 16+yearssince lastcigarfe Information not available 12/12/2022 Have You Recently Or Are You Planning To Travel To An Area With Zika Virus? No Information not available 12/12/2022 In General, Would You Say Your Health Is Very Good [email or web address] Information not available 06/13/2022 How Would You Describe The Condition Of Your Mouth And Teeth including False Teeth Or Dentures? Fair [email or web address] Information not available 06/12/2023 In The Past 7 Days, How Many Servings Of Fruits And Vegetables Did You Typically Eat Each Day? (1 Serving = 1 Cup Of Fresh Vegetables, 1 2 Cup Of Cooked Vegetables, Or 1 Medium Piece Of Fruit. 1 Cup = Size Of A Baseball.) 1-2 Servings Per Day [email or web address] Information not available 06/12/2023 In The Past 7 Days, How Many Servings Of High Fiber Or Whole Grain Foods Did You Typically Eat Each Day? (1 Serving = 1 Slice Of 100% Whole Wheat Bread, 1 Cup Of Whole-grain Or High-fiber Qrixj-hc-mdb Cereal, 1 2 Cup Of Cooked Cereal Such As Oatmeal, Or 1 2 Cup Of Cooked Brown Rice Or Whole Wheat Pasta.) 1-2 Servings Per Day [email or web address] Information not available 06/12/2023 In The Past 7 Days, How Many Servings Of Fried Or High-fat Foods Did You Typically Eat Each Day? (Examples Include Fried Chicken, Fried Fish, [place], [place], Potato Chips, Palms Chips, Doughnuts, Creamy Salad Dressings, And Foods Made With Whole Milk, Cream, Cheese, Or Mayonnaise.) 1-2 Servings Per Day [email or web address] Information not available 06/12/2023 In The Past 7 Days, How Many Sugar-sweetened (not Diet) Beverages Did You Typically Consume Each Day 0 Drinks Per Day [email or web address] Information not available 06/12/2023 Each Night, How Many Hours Of Sleep Do You Usually Get? 6-7 Hours [email or web address] Information not available 06/13/2022 Do You Snore Or Has Anyone Told You That You Snore? Yes [email or web address] Information not available 06/13/2022 In The Past 7 Days, How Often Have You [place] Sleepy During The Daytime? Usually [email or web address] Information not available 06/13/2022 Do You Have Chronic Pain? Yes [email or web address] Information not available 06/13/2022 If Yes, Location Of Pain Back, Legs [email or web address] Information not available 06/12/2023 In The Past 7 Days, How Would You Rate Your Pain? Mild Pain(1-3) [email or web address] Information not available 06/13/2022 Are You In A Pain Management Program? No [email or web address] Information not available 06/13/2022 Do You Take Opioids For Your Pain? No Information not available 06/12/2023 How Often Is Stress A Problem For You In Handling Such Things As: Your Health, Your Finances, Your Family And Social Relationships, Your Work? Sometimes [email or web address] Information not available 06/12/2023 How Often Do You Get The Social And Emotional Support You Need: Usually [email or web address] Information no t available 06/13/2022 In The Past 7 Days, Did You Need Help From Others To Take Care Of Things Such As Laundry And Housekeep- Ing, Banking, Shopping, Using The Telephone, Food Preparation, Transportation, Or Taking Your Own Medications? No [email or web address] Information not available 06/13/2022 Do You Live Alone? No [email or web address] Information not available 06/13/2022 Does Your Home Have Any Fall Risks (un-level Floors, Unfastened Rugs, Poor Lighting, Etc)? No [email or web address] Information not available 06/13/2022 What Was The Date Of Your Most Recent Tobacco Screening? 01/08/2024 Information not available 01/11/2024 What Is Your Current Pack Years? [email or web address] ears Information not available 12/12/2022 Do You Use Your Seat Belt Or Car Seat Routinely? Yes Information not available 12/12/2022 At What Age Did You Start Smoking Tobacco? 17 Information not available 12/12/2022 Are You Passively Exposed To Smoke? No [email or web address] Information no t available 12/02/2022 How Much Tobacco Do You Smoke? 1 PPD Information not available 01/11/2024 Has Tobacco Cessation [...] is your level of alcohol consumption? Occasional Information not available 12/02/2022 Do you or [...] 12/12/2022 What is your exercise level? Occasional [email or web address] Information not available 12/02/2022 Mental Status Question Answer Note LastModified by Organizat ion Details LastModified Time Do you feel stressed (tense, restless, nervous, or anxious, or unable to sleep at night)? [id number] [email or web address] Information not available 06/13/2022 Do you have difficulty concentrating, remembering or making decisions? No Information no t available 12/12/2022 Family History Relationship Description Onset Age of this Age Resolved Age Notes LastModified by Organization Details LastModified Time Father Heart disease [email or web address] Not available 2022 10:14:51 Father Family history of diabetes mellitus [email or web address] Not available 2024 09:02:18 Father Family history of blood coagulation disorder [email or web address] Not available 2024 09:02:18 Father Family member Not available 2024 09:02:18 Father Hypertensive disorder [...] Problems Y Ear or Hearing Problems Y High Cholesterol N Spine Problems Y Back Problems Y Obstructive Sleep Apnea Y Hypertension Y COPD Y Immunizations Vaccine Type Date Status Note Provider Nam e and Address Organization Details Recorded Time Influenza, high-dose, quadrivalent, PF 2 completed Bess Cullen null, [place] [facility] & [place] 08/16/2023 13:23:51 Influenza, high-dose, quadrivalent, PF 0 completed Bess Cullen [place], [place] [facility] & [place] 08/16/2023 13:23:51 Influenza, high-dose, quadrivalent, PF 1 completed Bess oswald, [place] [facility] & [place] 08/16/2023 13:23:51 COVID-19, mRNA, LNP-S, PF, 100 mcg/0.5mL dose or 50 mcg/0.25mL dose 1 completed Bess Cullen [place] [facility] & [place] 08/16/2023 13:23:51 COVID-19, mRNA, LNP-S, PF, 100 mcg/0.5mL dose or 50 mcg/0.25mL dose 1 completed Bess oswald[place] [facility] & [place] 08/16/2023 13:23:51 COVID-19, mRNA, LNP-S, PF, 100 mcg/0.5mL dose or 50 mcg/0.25mL dose 0 completed Bess oswald[place] [facility] & [place] 08/16/2023 13:23:51 Tdap 6 completed Bess [employer], [place] - [facility] & [place] 08/16/2023 13:23:51 Influenza, high-dose, trivalent, PF 8 completed Bess Cullen null, [place] - [facility] & [place] 08/16/2023 13:23:51 Influenza, high-dose, trivalent, PF 7 completed Bess Cullen null, [place] [facility] - [place] & [place] 08/16/2023 13:23:51 Hep A, adult 8 completed Bess Cullen null, [place] - [facility] & [place] 08/16/2023 13:23:51 Influenza, adjuvanted, quadrivalent, PF 3 completed Bess Cullen [facility], [place] - [facility] & [place] 08/16/2023 13:23:51 pneumococcal polysaccharide PPV23 3 completed Bess Cullen null, [place] - [facility] & [place] 08/16/2023 13:23:51 Influenza, adjuvanted, trivalent, PF 4 completed Rosalva Cazares MD [address] [place], [address], [facility] - [facility] & [place] 12/28/2023 12:54:14 RSV, bivalent, protein subunit RSVpreF, diluent reconstituted, 0.5 mL, PF 4 completed Bess Cullen [facility], [place] - [facility] & [place] 04/25/2024 13:11:01 COVID-19, mRNA, LNP-S, PF, jose-sucrose, 30 mcg/0.3 mL 4 completed Bess Cullen [facility], [facility] & [place] 04/25/2024 13:11:01 Past Encounters Encounter ID Performer Location Encounter Start Date Encounter Closed Date Diagnosis/Indication Diagnosis SNOMED-CT Code Diagnosis ICD10 Code Diagnosis Note [id number] Rosalva Cazares MD [facility] [address] [facility] [address] [place] [address] 06/13/2022 08:20:56 06/14/2022 09:11:59 Adult health examination 915095781 Z00.00 Screening for osteoporosis 593994691 Z13.820 Screening for malignant neoplasm of prostate 287477258 Z12.5 Prediabetes 579855819 R7 3.03 last 5.8 Hyperlipidemia 53057799 E78.5 Essential hypertension 91282805 I10 Thyroid fu nction tests abnormal 425009196 R94.6 repeat pendingwas n't able to see endo in the past, consider referring back pending result Screening for malignant neoplasm of respiratory tract 689909911 Z12.2 Not due until after 08/19 Prostate s pecific antigen outside reference range 542720016 R97.8 cultur epending, lab pendingif cultulre with + finding, we will start course of cipro Administra tion of pneumococcal vaccine 80041014 Z23 [id number] Louie Sofia PA-C [facility] [address] [place] [address] 09/01/2022 08:57:41 09/01/2022 09:39:44 Cholangiectasis 559873962 K83.8 Nausea and vomiting 1693 1999 R11.2 [id number] Rosalva Cazares MD [address] [place] [address] 09/12/2022 08:08:53 09/12/2022 09:10:49 Dyspnea 267877491 R06.00 prior work up with belen dow plan for alpha 1 testingdic ussed repeat pfts 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 846021094 E11.9 discussed farxiga jardiancem ay need to consider dose reduction of HCTZ to use [facility] hyperthyroidism 295722846 E05.90 discussed possible referral pending results Monocytosis 97660453 D72 .821 slight on prior, repeat pending [id number] Louie Sofia PA-C [facility] [address] [place] [address] 10/04/2022 09:06:24 10/04/2022 09:58:53 Pancreatic duct disorder 762987974 K86.9 Cholangiectasis 87948908 4 K83.8 Nausea and vomiting 1693 1999 R11.2 [id number] Rosalva Cazares MD [address] [place] [address] 12/12/2022 09:00:02 12/12/2022 09:53:27 Essential hypertension 47836979 I10 needs to establish with cardshx of bradycardi a Hyperlipidemia 87596777 E78.5 Pancreatic duct disorder 631315486 K86.9 seen by gi, due for f/u lipase Prostate s pecific antigen outside reference range 531782134 R97.8 repeat pending, follows with urology yearly Spinal gene nosis of lumbar region 19243783 M48.061 Subclinica l hyperthyroidism 492688154 E05.90 due for recheck Prediabetes 567871341 R7 3.03 last 5.8 Administra tion of influenza vaccine 22089684 Z23 [id number] Rosalva Cazares MD [address] [place] [address] 12/20/2022 15:37:39 12/20/2022 15:52:39 [id number] Rosalva Cazares MD [address] [place] [address] 04/24/2023 14:57:48 04/24/2023 15:48:00 Impacted cerumen in left ear 4667049620 025027 H61.22 resolved with flushing and curette but did not improve function of hearing aid. Pt will take it to location for testing [id number] Rosalva Cazares MD [address] [place] [address] 06/12/2023 08:28:50 06/12/2023 09:43:31 Adult health examination 457872216 Z00.00 Prediabetes 925070489 R7 3.03 Hyperlipidemia 28706947 E78.5 Essential hypertension 58700490 I10 Eczema of external auditory canal 97582415 H60.549 Benign pro static hyperplasia 913870798 N40.0 Obesity 346907907 E66.9 Thyroid fu nction tests abnormal 149259802 R94.6 repeat pending [id number] Karmen Lewis MD [facility] [id number] [facility], [place] [address] 07/18/2023 13:54:04 07/18/2023 14:24:46 Impacted cerumen in left ear 9191551590 813255 H61.22 Sensorineu ral hearing loss of bilateral ears 681085402 H90.3 [id number] [facility] [address] [place] [address] 08/16/2023 13:18:32 08/16/2023 13:51:09 Cough 79546429 R05.9 pt notes that he has no consistent hx of allergies but with the [place] ing, recent very high pollen counts, middle ear fluid and lack of fever and clear lung exam, I do think it is likely playing an issuewe discussed trial of low dose pred and follow bp, sample of air supra givenwe did also discuss potential for GERD related sx with the timing of cough and hx of diclofenac use.if cough worsens with steroids, plan for d/c and consider change in treatment plan Essential hypertension 54730970 I10 pt to closely watch BP while on steroids [id number] Rosalva Cazares MD [facility] [address] [place] [address] 12/28/2023 10:29:48 12/28/2023 12:15:03 Benign prostatic hyperplasia 791480971 N40.0 Hyperlipidemia 67430568 E78.5 Prediabetes 062719884 R7 3.03 Administra tion of influenza vaccine 63426294 Z23 Essential hypertension 13032290 I10 Spinal gene nosis of lumbar region 53716942 M48.061 Osteoarthritis 087886378 M19.90 [id number] Wilmer Argueta MD [facility] [address] [place] [address] 01/11/2024 09:00:50 01/11/2024 09:42:13 Spinal stenosis of lumbar region 23238957 M99.53 M48.061 - Based on the patient's history and physical exam, it appears his pain is likely associated with lumbar stenosis/D DD.- I will proceed with scheduling a LEI L5-S1. This procedure will be fluoroscop y guided.- Lumbar MRI shows multilevel disc degenerati on and spondylosi s with areas of neural foraminal narrowing which is worse bilaterall y at L4-5; central canal stenosis at L2-3 and L3-4; right L4 nerve root impingemen t and probable right L3 nerve root impingemen t.- I also feel the patient will benefit from another good round of PT (last performed 2021). I will place a referral for 4-6 weeks with focus on lumbar core muscle strengthen ing, pelvic stabilizat ion, and modalities .- I will follow up with the patient 2 weeks post injection. - If pain persists post LEI, the plan will be to proceed with a TFESI to better target his pain. Degenerati on of lumbar intervertebral disc 89087408 M51.369 - I will refill the patient's Diclofenac 75mg Q12 for 1 month while he awaits cardiology approval for Celebrex. Lumbar radiculopathy 128 580963 M54.16 - The patient is inquiring about restarting Gabapentin as he has taken it in the past with good benefit for radicular symptoms.- I will start him on the same dosing as before and provide 1 month worth of medication .- Medication contract signed. No UDS was obtained today. [id number] Wilmer Argueta MD [facility] [address] [place] [address] 02/08/2024 10:15:55 02/08/2024 10:49:41 Spinal stenosis of lumbar region 93005033 M99.53 M48.061 - The patient is post LEI L5-S1 on 01/23 which provided significan t pain relief of greater than 50% that he continues to benefit from.- The patient has been participat ing in PT. I encouraged him to continue.- The plan will be to repeat injection every 3 months as needed for pain control. Degenerati on of lumbar intervertebral disc 64020551 M51.369 - I will refill the patient's Diclofenac 75mg Q12 for 1 month while he awaits cardiology approval for Celebrex. He is scheduled to see cardiology on 02/21. Lumbar radiculopathy 128 870117 M54.16 - As Gabapentin is effective and well-wagner ated, I will refill for 1 month. Lumbar spondylosis 92266 0009 M47.816 - Based on the patient's history and physical exam, it appears his pain is likely associated with lumbar spondylosi s.- To address his axial low back pain, I will proceed with scheduling a BLMBB L4-S1. If the patient receives significan t (greater than 80% pain relief for at least 6 hours) benefit from the block, I will repeat based on insurance, and if the patient again receives significan t benefit, I will proceed with scheduling a lumbar RFA. The procedure will be fluoroscop y-guided.- Lumbar MRI shows multilevel disc degenerati on and spondylosi s with areas of neural foraminal narrowing which is worse bilaterall y at L4-5; central canal stenosis at L2-3 and L3-4; right L4 nerve root impingemen t and probable right L3 nerve root impingemen t.- I will follow up 1 week post block to assess efficacy. [id number] Wilmer Argueta MD [facility] [address] [place] [address] 02/23/2024 08:30:17 02/23/2024 09:42:24 Pain of left hip joint 5542940101 66904 M25.552 - Patient with intermitte nt Left hip pain which is exacerbate d when walking up stairs.- Palpation of the Greater Trochanter ic Bursa detects GT bursitis- Patient is a candidate for a Left GTB injection however since his pain is intermitte nt he wants to take care of his low back pain prior to his Let hip pain.- I will order an XR Left hip to better assess the patients pain and review at follow up. Lumbar spondylosis 27488 0009 M47.816 - Lumbar MRI shows multilevel disc degenerati on and spondylosi s with areas of neural foraminal narrowing which is worse bilaterall y at L4-5; central canal stenosis at L2-3 and L3-4; right L4 nerve root impingemen t and probable right L3 nerve root impingemen t.- Based on the patient's history and physical exam, it appears his pain is likely associated with lumbar spondylosi s.- S/p BLMBB L4-S1 (1st) on 02/13/24. Patient reports he received significan t benefit from (>80% reduction in pain for 3 days).- Due to the patient receiving significan t (greater than 80% pain relief for at least 6 hours) benefit from the block, I will repeat based on insurance, and if the patient again receives significan t benefit, I will proceed with scheduling a lumbar RFA. The procedure will be fluoroscop y-guided.- I will follow up 1 week post block to assess efficacy. Spinal gene nosis of lumbar region 70745478 M99.53 M48.061 - The patient is post LEI L5-S1 on 01/23 which provided significan t pain relief of greater than 50% that he continues to benefit from.- The patient has been participat ing in PT. I encouraged him to continue.- The plan will be to repeat injection every 3 months as needed for pain control. Degenerati on of lumbar intervertebral disc 29371944 M51.369 - Patient waiting on Cardiology clearance to take Celebrex. Lumbar radiculopathy 128 118636 M54.16 - Gabapentin is effective and well-wagner ated [id number] JOHN GARCIA PA-C [facility] [address] [place] [address] 03/28/2024 13:36:39 03/28/2024 14:27:14 Pain of left hip joint 9749395342 51096 M25.552 - I have reviewed the left hip x-ray, which revealed mild degenerati ve joint disease. Lumbar spondylosis 13824 0009 M47.816 - The patient is 1 week S/P second bilatera lumbar medial branch block at L4-S1, which was successful in decreasing non-radicu lar low back pain by greater than 80% in the short-term (at least 6 hours).- The patient isn't interested in pursuing a lumbar RFA at this time, as pain has seemingly decreased recently.- I anticipate scheduling a lumbar RFA in the future. Spinal gene nosis of lumbar region 21642004 M99.53 M48.061 - The previously (01/24/24) performed lumbar epidural was successful in decreasing radicular low back pain by greater than 50%. Degenerati on of lumbar intervertebral disc 03329120 M51.369 Lumbar radiculopathy 128 204353 M54.16 - I have reviewed the lumbar MRI, which revealed multilevel disc degenerati on and spondylosi s with areas of neural foraminal narrowing (worst bilaterall y at L4-L5); central canal stenosis at L2-L3 and L3-L4; right L4 nerve root impingemen t and probable right L3 nerve root impingemen t. Trochanter ic bursitis of left hip [id number] 71960 M70.62 - The patient complains of left hip pain described as tenderness along the lateral aspect, which negatively affects function and sleep.- The patient has attempted to make lifestyle modificati ons, but pain continues to impede performing ADLs, thereby negatively affecting quality of life. I think the patient is a good candidate for interventi onal treatment, as their pain has been refractory to conservati ve (PT and/or physician- directed at-home exercises/ stretches) and pharmacolo gic approaches .- I will proceed with scheduling a left GTB injection. [id number] Silvestre Ocampo MD [facility] [address] [facility] [address] [place] [address] 04/19/2024 13:41:30 04/19/2024 13:58:31 Upper respiratory infection [id number] J06.9 [id number] Rosalva Cazares MD [facility] [place] [address] [facility] [address] [place] [address] 04/25/2024 13:08:31 04/25/2024 13:53:59 Persistent cough [id number] R05.3 obtain cxrtrial of trelegy via sampleneg flu/covid [id number] Wilmer Argueta MD [facility] [address] [facility] [address] [place] [address] 05/02/2024 08:58:59 05/02/2024 09:19:15 Pain of left hip joint [id number] 20579 M25.552 - I have reviewed the left hip x-ray, which revealed mild degenerati ve joint disease. Lumbar spondylosis 51367 0009 M47.816 - The patient is S/P second bilatera lumbar medial branch block at L4-S1, which was successful in decreasing non-radicu lar low back pain by greater than 80% in the short-term (at least 6 hours).- The patient isn't interested in pursuing a lumbar RFA at this time, as pain has seemingly decreased recently.- I anticipate scheduling a lumbar RFA in the future.- Follow up in one month to assess pain. Spinal gene nosis of lumbar region 93049361 M99.53 M48.061 - The previously (01/24/24) performed lumbar epidural was successful in decreasing radicular low back pain by greater than 50%.- Patient is a candidate to receive re peat injections in the future as needed.- Follow up in one month to assess pain Degenerati on of lumbar intervertebral disc 40126953 M51.369 Lumbar radiculopathy 128 739351 M54.16 - I have reviewed the lumbar MRI, which revealed multilevel disc degenerati on and spondylosi s with areas of neural foraminal narrowing (worst bilaterall y at L4-L5); central canal stenosis at L2-L3 and L3-L4; right L4 nerve root impingemen t and probable right L3 nerve root impingemen t. Trochanter ic bursitis of left hip [id number] 66512 M70.62 - The patient complains of left hip pain described as tenderness along the lateral aspect, which negatively affects function and sleep.- The patient has attempted to make lifestyle modificati ons, but pain continues to impede performing ADLs, thereby negatively affecting quality of life. I think the patient is a good candidate for interventi onal treatment, as their pain has been refractory to conservati ve (PT and/or physician- directed at-home exercises/ stretches) and pharmacolo gic approaches .- S/p Left greater trochanter ic bursa injection on 04/03/24. Patient states he received significan t benefit (>95% reduction in pain) since his injection. - Patient is a candidate to receive repeat injections in the future as needed.- Follow up in one month to assess pain. [id number] Wilmer Argueta MD [facility] [address] [place] [address] 05/29/2024 08:35:47 05/29/2024 09:08:29 Pain of left hip joint [id number] 31143 M25.552 - I have reviewed the left hip x-ray, which revealed mild degenerati ve joint disease. Lumbar spondylosis 08054 0009 M47.816 - The patient is S/P second bilatera lumbar medial branch block at L4-S1, which was successful in decreasing non-radicu lar low back pain by greater than 80% in the short-term (at least 6 hours).- we will go ahead and schedule the patient for bilateral L4-S1 medial branch radiofrequ ency ablation Spinal gene nosis of lumbar region 40460368 M99.53 M48.061 - The previously (01/24/24) performed lumbar epidural was successful in decreasing radicular low back pain by greater than 50%.- Patient is a candidate to receive re peat injections in the future as needed.- Follow up in one month to assess pain Degenerati on of lumbar intervertebral disc 49978264 M51.369 - I will refill the patient's Diclofenac 75mg Q12 for 1 month while he awaits cardiology approval for Celebrex. He is scheduled to see cardiology on 02/21. Lumbar radiculopathy 128 738437 M54.16 - I have reviewed the lumbar MRI, which revealed multilevel disc degenerati on and spondylosi s with areas of neural foraminal narrowing (worst bilaterall y at L4-L5); central canal stenosis at L2-L3 and L3-L4; right L4 nerve root impingemen t and probable right L3 nerve root impingemen t. Trochanter ic bursitis of left hip [id number] 77972 M70.62 - The patient complains of left hip pain described as tenderness along the lateral aspect, which negatively affects function and sleep.- The patient has attempted to make lifestyle modificati ons, but pain continues to impede performing ADLs, thereby negatively affecting quality of life. I think the patient is a good candidate for interventi onal treatment, as their pain has been refractory to conservati ve (PT and/or physician- directed at-home exercises/ stretches) and pharmacolo gic approaches .- S/p Left greater trochanter ic bursa injection on 04/03/24. Patient states he received significan t benefit (>95% reduction in pain) since his injection. - Patient is a candidate to receive repeat injections in the future as needed. [id number] Rosalva Cazares MD [facility]ica [facility] [address] [address] [place] [address] 07/25/2024 11:00:21 07/25/2024 11:43:35 Persistent cough [id number] R05.3 [id number] JOHN GARCIA PA-C [facility] [address] [place] [address] 08/08/2024 10:38:18 08/08/2024 11:21:28 Pain of left hip joint [id number] 32075 M25.552 - I have reviewed the left hip x-ray, which revealed mild degenerati ve joint disease. Lumbar spondylosis 80033 0009 M47.816 - The patient is 1 [...] pain. Spinal gene nosis of lumbar region 25896607 M99.53 M48.061 - The previously (01/24/24) performed lumbar epidural was successful in decreasing radicular low back pain by greater than 50%. Degenerati on of lumbar intervertebral disc 05396671 M51.369 Lumbar radiculopathy 128 651561 M54.16 - I have reviewed the lumbar [...] batool). Trochanter ic bursitis of left hip 7265640306 87746 M70.62 - The patient is S/P (04/03/24) left GTB injection, which was successful (greater than 50% pain relief). Lumbago with sciatica 20 4777885 M54.40 - Refill Diclofenac 75 mg Q12 hours prn- The patient recently followed up with cardiology , whom reportedly recommende d that the patient continue Diclofenac rather than Celecoxib. Radicular pain 86058953 M54.10 - Refill Gabapentin 300 mg Q8 hours [id number] Rosalva Cazares MD [facility] [place] [address] [place] [address] 08/27/2024 14:02:47 08/27/2024 15:06:09 Cough [id number] R05.9 Dysfunctio n of right eustachian tube [id number] 317064 H69.91 Health Concerns Section Related Observation LastModified by Organization Detai ls LastModified Time None Recorded Concern Status LastModified by Organization Details LastModified Time None Recorded Advance Directives Directive N: Payers Insurance Date Sequence Insurance Name Policy Number Policy Baugh Covered Member ID Baugh Member ID Guarantor Name 09/23/2023 1 [employer] (MEDICARE REPLACEMENT/AD VANTAGE - PPO) Nash Galeas [id number] Nash Sharife 08/27/2024 1 [place]MEDICARE REPLACEMENT HMO) [id number] Nash Sharife [id number] Nash Sharife Notes Date Note Type Note Provider Name and Address Organization Details Recorded Time 05/02/2024 text/html Mr. Galeas was referred by Dr. Cazares for management of chronic low back pain. He denies DM, history of infection, or anti-coagulant use. The patient presents to the clinic today to follow up post-procedure. The patient is S/p Left greater trochanteric bursa injection on 04/03/24. Patient states he received significant benefit (>95% reduction in pain) since his injection. He reports his low back pain is still mild and manageable. He is very pleased with the results of his procedures thus far. His pain level today is 03/15. SIVAKUMAR UNDERWOOD PA-C [address] [facility], [place], [address], [facility] [place] 05/02/2024 14:11:13 05/29/2024 text/html Mr. Galeas was referred by Dr. Cazares for management of chronic low back pain. He denies DM, history of infection, or anti-coagulant use. The patient presents to the clinic today to follow up regarding rescheduling for the radiofrequency ablation. Patient was seen last month and was discuss about proceeding with the radiofrequency ablation but patient had questions about with the procedure and returns back today to discuss about the procedure in detail and proceed with the procedure. His pain level today is 1/10 In the left hip but a /10 for the low back. Wilmer Argueta MD [address] [facility], [place], [address], [facility] [place] 06/05/2024 13:40:12 07/25/2024 text/html He is here for persistent cough He has chronically had issues with shortness breath for more than 20 years. He had abnormal PFTs in the past but without clear diagnosis. This was first tested 20 years ago and had testing about 10 years ago at [facility]. He had seen Dr. Stoddard with [facility] and also was noted to have abnormal findings that were inconclusive.He had a CT scan FE of this year with no significant acute findings He has been taking chlorpheniremine before bed to help with coughing. He has not had a fever. His did have symptoms of congestion and laryngitis around the same time but felt that the symptoms were different from each other. He does frequently gets sick with wheezing symptoms and increased mucus any time he has a cold. He does not feel that he has typical allergy issues therefore he has not used traditional allergy medicines such as Zyrtec, Kair or Claritin in the past. Does not feel that he is any symptoms of acid reflux or heartburn. Does not chronically have a sore throat. Rosalva Cazares MD [address] , [place], [address], [facility] [place] 07/25/2024 13:06:12 08/08/2024 text/html Mr. Galeas was referred by Dr. Cazares for management of chronic low back pain. He denies DM, history of infection, or anti-coagulant use. The patient presents to the clinic today for a medication refill. The patient states that the current medication regimen is effective and well-tolerable, thereby allowing them to remain functional. The patient is 1 week S/P bilateral lumbar RFA at L4-S1. The patient expresses uncertainty regarding efficacy at this time. Today the pain level is a 1/10, but fluctuates higher (6 or more). 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 He has a pending appt next week with a new pulm to establish care. Rosalva Cazares MD [address], [place], [address], [facility] [place] 08/27/2024 15:08:21
--- OUTSIDE RECORDS SUMMARY | 2024-09-09 11:19 | XMS_ITS | Encounter Summary ---
Author Organization [employer] ([place], [place], [place], [place]) Address [address] [place] [address] Care Team Providers Care Gauge Maker Name Role Phone Unavailable Primary Care Provider Unavailabl e Encounter Details Date Type Department Care Team (Late st Contact Info) Description 06/15/2018 Transcribed Document [facility] Family Medicine [address] [place] [address] ProviderCarolina MD [address], [place] [id number] Social History Tobacco Use Types Packs/Day Years Used Date Smoking Tobacco: Never Assessed Sex and Gender Information Value Date Recorded Sex Assigned at Not on file Legal Sex Male 6:30 PM CDT Gender Identity Not on file Sexual Orientation Not on file documented as of this encounter Miscellaneous Notes * Cerner Conversion Note - Carolina Mancera MD - 06/15/2018 8:12 AM CDT Patient: NASH PIZARRO Age: 73 years Sex: Male : 1945 Associated Diagnoses: None Author: ADRIANO GOODEN MD Basic Information PCP: Patrice Vaca MD Cardiology: Dr Oden Chief Complaint Shortness of breath History of Present Illness This is a 73 year old female with a history of hypertension and hyperlipidemia. He was seen by Dr Oden with complaints of shortness of breath and palpitations. He underwent a stress test several months ago that showed no ischemia but he had multiple PVC's and one three beat run. He has continued to experience progressively worsening dyspnea and palpitations. He has been scheduled for elective cardiac cath. Review of Systems Constitutional: Negative except as documented in history of present illness. Eye: Negative except as documented in history of present illness. Ear/Nose/Mouth/Throat: Negative except as documented in history of present illness. Respiratory: Negative except as documented in history of present illness. Cardiovascular: Negative except as documented in history of present illness. Gastrointestinal: Negative except as documented in history of present illness. Genitourinary: Negative except as documented in history of present illness. Hematology/Lymphatics: Negative except as documented in history of present illness. Endocrine: Negative except as documented in history of present illness. Immunologic: Negative except as documented in history of present illness. Musculoskeletal: Negative except as documented in history of present illness. Integumentary: Negative except as documented in history of present illness. Neurologic: Negative except as documented in history of present illness. Psychiatric: Negative except as documented in history of present illness. Health Status No qualifying data available No qualifying data available Allergies: Allergic Reactions (Selected) No Known Allergies Current medications: (Selected) Inpatient Medications Ordered Normal Saline Flush: 10 mL, IV Push, Q12H Normal Saline Flush: 10 mL, IV Push, See Comment, PRN: IV Use Sodium Chloride 0.9% intravenous solution 500 mL: Titrate, IntraVENous atorvastatin: 80 mg, Oral, PREOP Documented Medications Documented Metoprolol Succinate ER: 25 mg, Oral, Daily, 0 Refill(s) Zocor: 20 mg, Oral, At Bedtime, 0 Refill(s) aspirin: 81 mg, Oral, At Bedtime, 0 Refill(s) hydroCHLOROthiazide: 25 mg, Oral, Daily, 0 Refill(s) lisinopril: 20 mg, Oral, BID, 0 Refill(s) Problem list: All Problems Hypertension / SNOMED CT 65268614 / Confirmed Hyperlipidemia / SNOMED CT 38030545 / Confirmed Hard of hearing / SNOMED CT 253454717 / Confirmed Angina / SNOMED CT 148877707 / Confirmed SOB (shortness of breath) / SNOMED CT 880917258 / Confirmed At risk for sleep apnea / IMO [id number] / Confirmed Resolved: Cataract / SNOMED CT 555944258 Histories No education data available. Social & Psychosocial Habits No Data Available Past Medical History: Active Hyperlipidemia (20968584) Hypertension (93269498) Family History: Entire family history is negative. Procedure history: cardiac cath. teeth extraction. hemorrhoidectomy. cataract sx. eyelids lifted. Social History Social & Psychosocial Habits Alcohol 06/15/2018 Alcohol Use History, Social Habits Yes Alcohol Use Frequency Monthly Substance Abuse 06/15/2018 Recreational Drug Use History No Tobacco 06/15/2018 Smoking Status Former smoker, quit more Month Tobacco Last Used quit 1993 . Physical Examination General: Alert and oriented. Eye: Pupils are equal, round and reactive to light. HENT: Normocephalic. Neck: Supple, No carotid bruit, No jugular venous distention. Respiratory: Lungs are clear to auscultation, Respirations are non-labored, Breath sounds are equal. Cardiovascular: Normal rate, Regular rhythm, No murmur, No gallop, Good pulses equal in all extremities. Gastrointestinal: Soft, Non-tender, Non-distended, Normal bowel sounds. Musculoskeletal: Normal range of motion, Normal strength. Integumentary: Warm, Dry, [place]. Neurologic: Alert, Oriented. Psychiatric: Cooperative. Review / Management No qualifying data available Cardiac Markers (Current Encounter/Past 24 Hours) No Cardiac Marker Results Found (Past 24 Hours) Blood Gases (Current Encounter/Past 24 Hours) No Blood Gas Results Found (Past 24 Hours) No Radiology Results Found Results review: No qualifying data available. Impression and Plan IMPRESSION: * Progressively worsening dyspnea concerning for angina * Palpitations- multiple PVC's and 3 beat run of VT on stress test. Holter monitor is pending * HTN * HLD PLAN; Cardiac cath with possible catheter based intervention. Risks, benefits, and alternative therapy discussed with the patient in detail. He has given verbal and written consent. Agree. Will procede with [facility] this AM as polanned. documented in this encounter Plan of Treatment Not on file documented as of this encounter Visit Diagnoses Not on filedocumented in this encounter
--- OUTSIDE RECORDS SUMMARY | 2024-09-09 11:19 | XMS_ITS | Data Portability ---
Author Organization [facility] JEANNINE Finnegan [place] Address [address] [place] [address] Care Team Providers Care Gullet Slitter Name Role Phone ROSALVA BERMAN Primary Care Provider Assessment Encounter Date Assessment Date Assessment LastModified by Organization Details LastModified Time 07/04/2024 07/04/2024 79 year old male with history of benign prostatic hyperplasia presenting with elevated PSA. Elevated PSA is concerning for prostate malignancy given family history. PSA test is pending, considering MRI if elevated. Elevated Prostate-Specif ic Antigen: Conduct repeat PSA test (PSA 3 over total fraction). Consider prostate MRI based on results. Family history necessitates close monitoring. Benign Prostatic Hyperplasia: Previous treatment with tamsulosin and finasteride noted. Management depends on further test results. [email or web address] Not available 07/04/2024 14:08:10 Plan of Treatment Reminders Order Date Submit Date Provider Last Modified By Organization Details Last Modified Time Details Appointments None recorded. Lab urinalysis panel, auto 2024 025 [facility], [address] [place], [place] [address], [place], [address], 5 07:17:41 PSA, total + free, serum or plasma 2024 025 [facility], [address] [place] [address], [place], [address], 5 07:17:41 urinalysis panel, auto 2023 024 [facility], [address], [place], [address], 4 10:39:46 urinalysis panel, auto 2023 024 [facility], [address], [place], [address], 4 12:28:20 urinalysis panel, auto 2022 023 [facility], [address], [place], [address], 3 07:05:26 urinalysis panel, auto 2022 023 [facility], [address], [place], [address], 3 08:47:02 Referral None recorded. Procedures None recorded. Surgeries None recorded. Imaging None recorded. Medication Orders finasterid e 5 mg tablet 2022 023 [facility], [address] [place] [address], [id number], 3 10:19:43 tamsulosin 0.4 mg capsule 2022 023 [facility], [address] [place] [address], [id number], 3 10:19:43 silodosin 8 mg capsule 2022 023 [facility], [address] [place] [address], [id number], 3 15:11:28 finasterid e 5 mg tablet 2022 023 [facility], [address] [place] [address], [id number], 3 15:11:28 Patient TargetsNo targets recorded. Patient Instructions Encounter Date Encounter Id Patient Instructions Last Modified By Organization Details Last Modified Time 07/11/2022 [id number] Patient may try to go off of his Rapaflo to see if symptoms are well treated with finasteride only. [email or web address] Not available 07/13/2022 08:46:50 01/16/2023 [id number] learning about healthy weight [email or web address] Not available 01/30/2023 07:05:24 07/17/2023 [id number] learning about healthy weight [email or web address] Not available 07/22/2023 12:28:20 07/04/2024 [id number] - Undergo the repeat PSA test as discussed. - Await results for consideration of further tests like MRI. - Follow advice regarding management of BPH symptoms. [email or web address] Not available 07/04/2024 14:08:13 Reason for Referral None Reported. Results Created Date Observation Date Name Description Value Unit Range Abnormal Flag Note LastModifiedBy Organization Detail LastModifiedTime 07/12/1907/11/2022 urina lysis panel , auto Unknown Analyte Clean Catch Not Available [facility] [place] [id number] [facility] [address], [place], [address], 07/11/2022 15:05:14 07/12/19 23 07/11/2022 urina lysis panel , auto Unknown Analyte Yellow Not Available [facility] [address] [facility] [facility], [place], [address], 07/11/2022 15:05:14 07/12/19 23 07/11/2022 urina lysis panel , auto Unknown Analyte Clear Not Available [facility] [address], [place], [address], 07/11/2022 15:05:14 07/12/19 23 07/11/2022 urina lysis panel , auto Unknown Analyte 1.020 Not Available [facility] [address], [place], [address], 07/11/2022 15:05:14 07/12/19 23 07/11/2022 urina lysis panel , auto Unknown Analyte 1.003- 1.035 Not Available [facility] [address], [place], [address], 07/11/2022 15:05:14 07/12/19 23 07/11/2022 urina lysis panel , auto Unknown Analyte 5.0 Not Available [facility] [address], [place], [address], 07/11/2022 15:05:14 07/12/19 23 07/11/2022 urina lysis panel , auto Unknown Analyte 5.0-8. 0 Not Available [facility] [address], [place], [address], 07/11/2022 15:05:14 07/12/19 23 07/11/2022 urina lysis panel , auto Unknown Analyte Negati ve Not Available [facility] [address], [place], [address], 07/11/2022 15:05:14 07/12/19 23 07/11/2022 urina lysis panel , auto Unknown Analyte Negati ve Not Available [facility] [place] [facility] [place] [address], [place], [address], 07/11/2022 15:05:14 07/12/19 23 07/11/2022 urina lysis panel , auto Unknown Analyte Negati ve Not Available [facility] [address], [place], [address], 07/11/2022 15:05:14 07/12/19 23 07/11/2022 urina lysis panel , auto Unknown Analyte Negati ve Not Available [facility] [address], [place], [address], 07/11/2022 15:05:14 07/12/19 23 07/11/2022 urina lysis panel , auto Unknown Analyte Negati ve Not Available [facility] [address], [place], [address], 07/11/2022 15:05:14 07/12/19 23 07/11/2022 urina lysis panel , auto Unknown Analyte Negati ve Not Available [facility] [address], [place], [address], 07/11/2022 15:05:14 07/12/19 23 07/11/2022 urina lysis panel , auto Unknown Analyte Normal Not Available [facility] [address], [place], [address], 07/11/2022 15:05:14 07/12/19 23 07/11/2022 urina lysis panel , auto Unknown Analyte Normal Not Available [facility] [address], [place], [address], 07/11/2022 15:05:14 07/12/19 23 07/11/2022 urina lysis panel , auto Unknown Analyte Negati ve Not Available [facility] [address], [place], [address], 07/11/2022 15:05:14 07/12/19 23 07/11/2022 urina lysis panel , auto Unknown Analyte Negati ve Not Available [facility] [place] [facility] [address], [place], [address], 07/11/2022 15:05:14 07/12/19 23 07/11/2022 urina lysis panel , auto Unknown Analyte Normal Not Available [facility] [place] [facility] [address], [place], [address], 07/11/2022 15:05:14 07/12/19 23 07/11/2022 urina lysis panel , auto Unknown Analyte Normal 1 mg/dl Not Available [facility] [place] [facility] [address], [place], [address], 07/11/2022 15:05:14 07/12/19 23 07/11/2022 urina lysis panel , auto Unknown Analyte Negati ve Not Available [facility] [address], [place], [address], 07/11/2022 15:05:14 07/12/19 23 07/11/2022 urina lysis panel , auto Unknown Analyte Negati ve Not Available [facility] [address], [place], [address], 07/11/2022 15:05:14 07/12/19 23 07/11/2022 urina lysis panel , auto Unknown Analyte Negati ve Not Available [facility] [place] [facility] [address], [place], [address], 07/11/2022 15:05:14 07/12/19 23 07/11/2022 urina lysis panel , auto Unknown Analyte Negati ve Not Available [facility] [place] [facility] [address], [place], [address], 07/11/2022 15:05:14 01/17/20 23 01/16/2023 urina lysis panel , auto Unknown Analyte Clean Catch Not Available [facility] [place] [facility] [address], [place], [address], 01/16/2023 20:27:08 01/17/20 23 01/16/2023 urina lysis panel , auto Unknown Analyte Yellow Not Available [facility] [address], [place], [address], 01/16/2023 20:27:08 01/17/20 23 01/16/2023 urina lysis panel , auto Unknown Analyte Clear Not Available [facility] [address], [place], [address], 01/16/2023 20:27:08 01/17/20 23 01/16/2023 urina lysis panel , auto Unknown Analyte 1.015 Not Available [facility] [address], [place], [address], 01/16/2023 20:27:08 01/17/20 23 01/16/2023 urina lysis panel , auto Unknown Analyte 1.003- 1.035 Not Available [facility] [address], [place], [address], 01/16/2023 20:27:08 01/17/20 23 01/16/2023 urina lysis panel , auto Unknown Analyte 6.5 Not Available [facility] [address], [place], [address], 01/16/2023 20:27:08 01/17/2001/16/2023 urina lysis panel , auto Unknown Analyte 5.0-8. 0 Not Available [facility] [address], [place], [address], 01/16/2023 20:27:08 01/17/20 23 01/16/2023 urina lysis panel , auto Unknown Analyte Negati ve Not Available [facility] [place] [facility] [address], [place], [address], 01/16/2023 20:27:08 01/17/20 23 01/16/2023 urina lysis panel , auto Unknown Analyte Negati ve Not Available [facility] [address], [place], [address], 01/16/2023 20:27:08 01/17/20 23 01/16/2023 urina lysis panel , auto Unknown Analyte Negati ve Not Available [facility] [place] [facility] [address], [place], [address], 01/16/2023 20:27:08 01/17/20 23 01/16/2023 urina lysis panel , auto Unknown Analyte Negati ve Not Available [facility] [address], [place], [address], 01/16/2023 20:27:08 01/17/20 23 01/16/2023 urina lysis panel , auto Unknown Analyte Negati ve Not Available [facility] [address], [place], [address], 01/16/2023 20:27:08 01/17/20 23 01/16/2023 urina lysis panel , auto Unknown Analyte Negati ve Not Available [facility] [address], [place], [address], 01/16/2023 20:27:08 01/17/20 23 01/16/2023 urina lysis panel , auto Unknown Analyte Normal Not Available [facility] [address], [place], [address], 01/16/2023 20:27:08 01/17/20 23 01/16/2023 urina lysis panel , auto Unknown Analyte Normal Not Available [facility] [address], [place], [address], 01/16/2023 20:27:08 01/17/20 23 01/16/2023 urina lysis panel , auto Unknown Analyte Negati ve Not Available [facility] [address], [place], [address], 01/16/2023 20:27:08 01/17/20 23 01/16/2023 urina lysis panel , auto Unknown Analyte Negati ve Not Available [facility] [place] [facility] [address], [place], [address], 01/16/2023 20:27:08 01/17/20 23 01/16/2023 urina lysis panel , auto Unknown Analyte 1 mg/dl Not Available [facility] [place] [facility] [address], [place], [address], 01/16/2023 20:27:08 01/17/2001/16/2023 urina lysis panel , auto Unknown Analyte Normal 1 mg/dl Not Available [facility] [place] [facility] [address], [place], [address], 01/16/2023 20:27:08 01/17/20 23 01/16/2023 urina lysis panel , auto Unknown Analyte Negati ve Not Available [facility] [place] [facility] [address], [place], [address], 01/16/2023 20:27:08 01/17/20 23 01/16/2023 urina lysis panel , auto Unknown Analyte Negati ve Not Available [facility] [place] [facility] [address], [place], [address], 01/16/2023 20:27:08 01/17/20 23 01/16/2023 urina lysis panel , auto Unknown Analyte Negati ve Not Available [facility] [address], [place], [address], 01/16/2023 20:27:08 01/17/20 23 01/16/2023 urina lysis panel , auto Unknown Analyte Negati ve Not Available [facility] [address], [place], [address], 01/16/2023 20:27:08 07/17/19 24 07/17/2023 urina lysis panel , auto Unknown Analyte Clean Catch Not Available [facility] [place] [facility] [address], [place], [address], 07/17/2023 15:56:47 07/17/19 24 07/17/2023 urina lysis panel , auto Unknown Analyte Yellow Not Available [facility] [address], [place], [address], 07/17/2023 15:56:47 07/17/19 24 07/17/2023 urina lysis panel , auto Unknown Analyte Clear Not Available [facility] [address], [place], [address], 07/17/2023 15:56:47 07/17/19 24 07/17/2023 urina lysis panel , auto Unknown Analyte 1.015 Not Available [facility] [address], [place], [address], 07/17/2023 15:56:47 07/17/19 24 07/17/2023 urina lysis panel , auto Unknown Analyte 1.003- 1.035 Not Available [facility] [address], [place], [address], 07/17/2023 15:56:47 07/17/19 24 07/17/2023 urina lysis panel , auto Unknown Analyte 5.0 Not Available [facility] [address], [place], [address], 07/17/2023 15:56:47 07/17/19 24 07/17/2023 urina lysis panel , auto Unknown Analyte 5.0-8. 0 Not Available [facility] [place] [facility] [address], [place], [address], 07/17/2023 15:56:47 07/17/19 24 07/17/2023 urina lysis panel , auto Unknown Analyte Negati ve Not Available [facility] [address], [place], [address], 07/17/2023 15:56:47 07/17/19 24 07/17/2023 urina lysis panel , auto Unknown Analyte Negati ve Not Available [facility] [address], [place], [address], 07/17/2023 15:56:47 07/17/19 24 07/17/2023 urina lysis panel , auto Unknown Analyte Negati ve Not Available [facility] [place] [facility] [address], [place], [address], 07/17/2023 15:56:47 07/17/19 24 07/17/2023 urina lysis panel , auto Unknown Analyte Negati ve Not Available [facility] [address], [place], [address], 07/17/2023 15:56:47 07/17/19 24 07/17/2023 urina lysis panel , auto Unknown Analyte Negati ve Not Available [facility] [place] [facility] [address], [place], [address], 07/17/2023 15:56:47 07/17/19 24 07/17/2023 urina lysis panel , auto Unknown Analyte Negati ve Not Available [facility] [address], [place], [address], 07/17/2023 15:56:47 07/17/19 24 07/17/2023 urina lysis panel , auto Unknown Analyte Normal Not Available [facility] [address], [place], [address], 07/17/2023 15:56:47 07/17/19 24 07/17/2023 urina lysis panel , auto Unknown Analyte Normal Not Available [facility] [address], [place], [address], 07/17/2023 15:56:47 07/17/19 24 07/17/2023 urina lysis panel , auto Unknown Analyte Negati ve Not Available [facility] [address], [place], [address], 07/17/2023 15:56:47 07/17/19 24 07/17/2023 urina lysis panel , auto Unknown Analyte Negati ve Not Available [facility] [address], [place], [address], 07/17/2023 15:56:47 07/17/19 24 07/17/2023 urina lysis panel , auto Unknown Analyte Normal Not Available [facility] [address], [place], [address], 07/17/2023 15:56:47 07/17/19 24 07/17/2023 urina lysis panel , auto Unknown Analyte Normal 1 mg/dl Not Available [facility] [address], [place], [address], 07/17/2023 15:56:47 07/17/19 24 07/17/2023 urina lysis panel , auto Unknown Analyte Negati ve Not Available [facility] [address], [place], [address], 07/17/2023 15:56:47 07/17/19 24 07/17/2023 urina lysis panel , auto Unknown Analyte Negati ve Not Available [facility] [address], [place], [address], 07/17/2023 15:56:47 07/17/19 24 07/17/2023 urina lysis panel , auto Unknown Analyte Negati ve Not Available [facility] [address], [place], [address], 07/17/2023 15:56:47 07/17/19 24 07/17/2023 urina lysis panel , auto Unknown Analyte Negati ve Not Available [facility] [address], [place], [address], 07/17/2023 15:56:47 02/05/20 24 02/05/2024 urina lysis panel , auto Unknown Analyte Clean Catch Not Available [facility] [address], [place], [address], 02/05/2024 14:28:02/05/20 24 02/05/2024 urina lysis panel , auto Unknown Analyte Yellow Not Available [facility] [place] [facility] [address], [place], [address], 02/05/2024 14:28:02/05/20 24 02/05/2024 urina lysis panel , auto Unknown Analyte Clear Not Available [facility] [place] [facility] [address], [place], [address], 02/05/2024 14:28:02/05/20 24 02/05/2024 urina lysis panel , auto Unknown Analyte 1.025 Not Available [facility] [address], [place], [address], 02/05/2024 14:28:02/05/20 24 02/05/2024 urina lysis panel , auto Unknown Analyte 1.003- 1.035 Not Available [facility] [place] [facility] [address], [place], [address], 02/05/2024 14:28:02/05/20 24 02/05/2024 urina lysis panel , auto Unknown Analyte 5.0 Not Available [facility] [address], [place], [address], 02/05/2024 14:28:02/05/20 24 02/05/2024 urina lysis panel , auto Unknown Analyte 5.0-8. 0 Not Available [facility] [place] [facility] [place] [address], [place], [address], 02/05/2024 14:28:02/05/20 24 02/05/2024 urina lysis panel , auto Unknown Analyte Negati ve Not Available [facility] [place] [facility] [address], [place], [address], 02/05/2024 14:28:02/05/20 24 02/05/2024 urina lysis panel , auto Unknown Analyte Negati ve Not Available [facility] [place] [facility] [address], [place], [address], 02/05/2024 14:28:02/05/20 24 02/05/2024 urina lysis panel , auto Unknown Analyte Negati ve Not Available [facility] [address], [place], [address], 02/05/2024 14:28:02/05/20 24 02/05/2024 urina lysis panel , auto Unknown Analyte Negati ve Not Available [facility] [address], [place], [address], 02/05/2024 14:28:02/05/20 24 02/05/2024 urina lysis panel , auto Unknown Analyte Negati ve Not Available [facility] [address], [place], [address], 02/05/2024 14:28:02/05/20 24 02/05/2024 urina lysis panel , auto Unknown Analyte Negati ve Not Available [facility] [address], [place], [address], 02/05/2024 14:28:02/05/20 24 02/05/2024 urina lysis panel , auto Unknown Analyte Normal Not Available [facility] [address], [place], [address], 02/05/2024 14:28:02/05/20 24 02/05/2024 urina lysis panel , auto Unknown Analyte Normal Not Available [facility] [place] [address], [place], [address], 02/05/2024 14:28:02/05/20 24 02/05/2024 urina lysis panel , auto Unknown Analyte Negati ve Not Available [facility] [address], [place], [address], 02/05/2024 14:28:02/05/20 24 02/05/2024 urina lysis panel , auto Unknown Analyte Negati ve Not Available [facility] [address], [place], [address], 02/05/2024 14:28:02/05/20 24 02/05/2024 urina lysis panel , auto Unknown Analyte Normal Not Available [facility] [address], [place], [address], 02/05/2024 14:28:02/05/20 24 02/05/2024 urina lysis panel , auto Unknown Analyte Normal 1 mg/dl Not Available [facility] [address], [place], [address], 02/05/2024 14:28:09 02/05/20 24 02/05/2024 urina lysis panel , auto Unknown Analyte 1 mg/dl (+) Not Available [facility] [address], [place], [address], 02/05/2024 14:28:02/05/20 24 02/05/2024 urina lysis panel , auto Unknown Analyte Negati ve Not Available [facility] [address], [place], [address], 02/05/2024 14:28:02/05/20 24 02/05/2024 urina lysis panel , auto Unknown Analyte Negati ve Not Available [facility] [address], [place], [address], 02/05/2024 14:28:02/05/20 24 02/05/2024 urina lysis panel , auto Unknown Analyte Negati ve Not Available [facility] [address], [place], [address], 02/05/2024 14:28:07/05/19 25 07/04/2024 PSA, TOTAL AND FREE prostate specific Ag 3.740 NG/mL 0.000- 4.400 normal This test was perfo rmed using Meagan e801 Elect meagan milum inesc ent metho d. The test metho d is based on WHO-s tanda rdize d calib ratio n. Value s obtai evelin from diffe rent assay metho ds or manuf actur ers may not be bee rable . Not Available [facility] [address] [facility], [place], [address], 07/04/2024 19:21:27 07/05/19 25 07/04/2024 PSA, TOTAL AND FREE free PSA 0.90 NG/mL normal Test metho d is based on WHO-s tanda rdize d calib ratio n using the Meagan E801 kassy zer. Free PSA resul ts by diffe rent test proce dures canno t be direc tly bee red with one anoth er. Not Available [facility] [address] [place] [address], [address], 07/04/2024 19:21:27 07/05/19 25 07/04/2024 PSA, TOTAL AND FREE % free PSA 24 % normal ____ PSA ng/mL % FREE PSA Proba bilit y of Prost ate Cance r % ____ Less than 4.00 N/A 17% 4.0 - 10.0 0-10 56% 10-15 28% 15-20 20% 20-25 16% Great er than 25 8% Great er than 10.0 N/A 49% ____ Not Available [facility] [address] [place] [address], [address], 07/04/2024 19:21:27 07/05/1907/04/2024 urina lysis panel , auto Unknown Analyte Clean Catch Not Available [facility] [address], [place], [address], 07/04/2024 14:13:31 07/05/19 25 07/04/2024 urina lysis panel , auto Unknown Analyte Yellow Not Available [facility] [address], [place], [address], 07/04/2024 14:13:31 07/05/19 25 07/04/2024 urina lysis panel , auto Unknown Analyte Clear Not Available [facility] [address], [place], [address], 07/04/2024 14:13:31 07/05/19 25 07/04/2024 urina lysis panel , auto Unknown Analyte 1.020 Not Available [facility] [address], [place], [address], 07/04/2024 14:13:31 07/05/19 25 07/04/2024 urina lysis panel , auto Unknown Analyte 1.003 - 1.030 Not Available [facility] [address], [place], [address], 07/04/2024 14:13:31 07/05/19 25 07/04/2024 urina lysis panel , auto Unknown Analyte 5.0 Not Available [facility] [address], [place], [address], 07/04/2024 14:13:31 07/05/19 25 07/04/2024 urina lysis panel , auto Unknown Analyte 5.0 - 8.0 Not Available [facility] [address], [place], [address], 07/04/2024 14:13:31 07/05/19 25 07/04/2024 urina lysis panel , auto Unknown Analyte Negati ve Not Available [facility] [address], [place], [address], 07/04/2024 14:13:31 07/05/19 25 07/04/2024 urina lysis panel , auto Unknown Analyte Negati ve Not Available [facility] [address], [place], [address], 07/04/2024 14:13:31 07/05/19 25 07/04/2024 urina lysis panel , auto Unknown Analyte Negati ve Not Available [facility] [address], [place], [address], 07/04/2024 14:13:31 07/05/19 25 07/04/2024 urina lysis panel , auto Unknown Analyte Negati ve Not Available [facility] [address], [place], [address], 07/04/2024 14:13:31 07/05/19 25 07/04/2024 urina lysis panel , auto Unknown Analyte Negati ve Not Available [facility] [address], [place], [address], 07/04/2024 14:13:31 07/05/19 25 07/04/2024 urina lysis panel , auto Unknown Analyte Negati ve Not Available [facility] [address], [place], [address], 07/04/2024 14:13:31 07/05/19 25 07/04/2024 urina lysis panel , auto Unknown Analyte Normal Not Available [facility] [address], [place], [address], 07/04/2024 14:13:31 07/05/19 25 07/04/2024 urina lysis panel , auto Unknown Analyte Normal Not Available [facility] [address], [place], [address], 07/04/2024 14:13:31 07/05/19 25 07/04/2024 urina lysis panel , auto Unknown Analyte Negati ve Not Available [facility] [address], [place], [address], 07/04/2024 14:13:31 07/05/19 25 07/04/2024 urina lysis panel , auto Unknown Analyte Negati ve Not Available [facility] [address], [place], [address], 07/04/2024 14:13:31 07/05/19 25 07/04/2024 urina lysis panel , auto Unknown Analyte Normal Not Available [facility] [address], [place], [address], 07/04/2024 14:13:31 07/05/19 25 07/04/2024 urina lysis panel , auto Unknown Analyte Normal Not Available [facility] [address], [place], [address], 07/04/2024 14:13:31 07/05/19 25 07/04/2024 urina lysis panel , auto Unknown Analyte Negati ve Not Available [facility] [address], [place], [address], 07/04/2024 14:13:31 07/05/19 25 07/04/2024 urina lysis panel , auto Unknown Analyte Negati ve Not Available [facility] [address], [place], [address], 07/04/2024 14:13:31 07/05/19 25 07/04/2024 urina lysis panel , auto Unknown Analyte Negati ve Not Available [facility] [address] [facility] [address], [place], [address], 07/04/2024 14:13:31 07/05/19 25 07/04/2024 urina lysis panel , auto Unknown Analyte Negati ve Not Available [facility] [address] [facility] [address], [place], [address], 07/04/2024 14:13:31 Result Notes None recorded. Problems Name Problem SNOMED Code Status Onset Date Resolution Date Notes Provider Name and Address Organization Details Recorded Time Benign prostatic hyperplasia with outflow obstruction 244094509 Active 2021 JOHNATHAN HARMAN JR, MD [address] [place] [address], [address], [facility] 2 16:04:58 Prostate specific antigen above reference range 381996319 Active 2021 JOHNATHAN HARMAN JR, MD [address] [place] [address], [address], [facility] 2 07:06:33 Primary erectile dysfunction 226798648 Active 2021 JOHNATHAN HARMAN JR, MD [address] [place] [address], [address], [facility] 2 14:50:36 Problem Notes None recorded. Procedures Surgical History Date Name Laterality Status Provider Name and Address Organization Details Recorded Time 8 Spirometry completed TRVAIS DE LA CRUZ MD [address] [place], [address], [facility] 09/05/2017 17:53:39 Xcapsl ctrc rmvl cplx wo ecp completed Murelene Kwame [facility] 05/28/2020 17:24:29 tooth extraction completed Murelene Kwame [facility] 05/28/2020 17:24:42 Imaging Results None recorded. Procedure Notes None recorded. Medical Equipment None Reported. Allergies No known drug allergies Medications Name Sig Start Date Stop Date Status Note LastModified by Organization Details LastModified Time amoxicill in 500 mg capsule Take 1 capsule twice a day by oral route for 20 days. active Not Available Not Available No t Available atorvasta tin 40 mg tablet TAKE ONE TABLET BY MOUTH ONCE DAILY active Not Available Not Available No t Available doxycycli ne hyclate 100 mg capsule TAKE ONE CAPSULE TWICE DAILY FOR 14 DAYS 05/28 completed Not Available Not Available Not Available azithromy rick 250 mg tablet TAKE 2 TABLETS (500 MG) BY ORAL ROUTE ONCE DAILY FOR 1 DAY THEN 1 TABLET (250 MG) BY ORAL ROUTE ONCE DAILY FOR 4 DAYS active Not Available Not Available No t Available hydrocodo ne 5 mg-acetam inophen 325 mg tablet TAKE ONE TABLET BY MOUTH EVERY SIX HOURS NEEDED FOR PAIN active Not Available Not Available No t Available lisinopri l 20 mg tablet TAKE 1 TABLET BY MOUTH TWICE DAILY active Not Available Not Available No t Available prednison e 20 mg tablet take 3 tabs daily for 3 days, 2 tabs daily for 3 days, then 1 tab daiy for 3 days active Not Available Not Available No t Available sildenafi l 100 mg tablet Take 1 tablet by oral route as directed . active Not Available Not Available No t Available tamsulosi n 0.4 mg capsule Take 2 capsules every day by oral route for 90 days. active Not Available Not Available No t Available hydrocort isone-david tic acid 1 %-2 % ear drops INSTILL 2 DROPS INTO AFFECTED EAR(S) BY OTIC ROUTE 4 TIMES PER DAY active Not Available Not Available No t Available hydrocodo ne 7.5 mg-acetam inophen 325 mg tablet TAKE ONE TABLET BY MOUTH EVERY 4 TO 6 HOURS NEEDED FOR PAIN 05/28 completed Not Available Not Available Not Available cephalexi n 500 mg capsule TAKE ONE CAPSULE BY MOUTH EVERY SIX HOURS 11/30 completed Not Available Not Available Not Available simvastat in 20 mg tablet TAKE ONE TABLET BY MOUTH EVERY DAY active Not Available Not Available No t Available erythromy rick 5 mg/gram (0.5 %) eye ointment APPLY TO EACH LID AT BEDTIME DIRECTED 05/28 completed Not Available Not Available Not Available gabapenti n 300 mg capsule Take 1 capsule every 8 hours by oral route as directed for 30 days. active Not Available Not Available No t Available diclofena c sodium 75 mg tablet,de layed release Take 1 tablet every 24 hours by oral route as directed for 30 days. active Not Available Not Available No t Available monteluka st 10 mg tablet TAKE ONE TABLET BY MOUTH DAILY 06/07 completed Not Available Not Available Not Available hydrochlo rothiazid e 25 mg tablet TAKE ONE TABLET BY MOUTH EVERY MORNING active Not Available Not Available No t Available metoprolo l succinate ER 25 mg tablet,ex tended release 24 hr TAKE ONE TABLET ONCE DAILY 06/07 completed Not Available Not Available Not Available clobetaso l 0.05 % topical ointment Apply a thin layer to affected areas twice daily for 2 weeks. Stop for 1 week. Repeat as needed. active Not Available Not Available No t Available ibuprofen 600 mg tablet TAKE ONE TABLET BY MOUTH EVERY SIX HOURS NEEDED FOR PAIN active Not Available Not Available No t Available levofloxa rick 500 mg tablet TAKE ONE TABLET BY MOUTH EVERY DAY FOR 10 DAYS 05/28 completed Not Available Not Available Not Available ondansetr on 4 mg disintegr ating tablet dissolve 1 tablet on the tongue Every 8 (Eight) Hours As Needed for Nausea or Vomiting . active Not Available Not Available No t Available finasteri de 5 mg tablet Take 1 tablet every day by oral route. 2024 active Not Available Not Available Not Avai lable amoxicill in 875 mg-potass ium clavulana te 125 mg tablet TAKE ONE TABLET BY MOUTH TWICE DAILY UNTIL GONE 06/07 completed Not Available Not Available Not Available Ventolin HFA 90 mcg/actua tion aerosol inhaler 06/07 completed Not Available Not Available Not Available calcipotr iene 0.005 % topical ointment Apply a thin layer to affected areas two times daily when flared. active Not Available Not Available No t Available neomycin- polymyxin -hydrocor t 3.5 mg-10,000 unit/mL-1 % ear drops,yadiel p place THREE drops in each ear NEEDED FOR ITCHING for 7 06/07 completed Not Available Not Available Not Available chlorhexi dine gluconate 0.12 % mouthwash TAKE DIRECTED BY MD 06/07 completed Not Available Not Available Not Available aspirin active Medicati on Descript ion: aspirin; Route:or al; refills: 0 Not Available Not Available Not Available hydrochlo rothiazid e 09/05 completed Medicati on Descript ion: hydrochl orothiaz briana; Route:or al; refills: 0 Not Available Not Available Not Available Zocor active Medicati on Descript ion: simvasta tin; Route:or al; refills: 0 Not Available Not Available Not Available Keflex 09/05 completed Medicati on Descript ion: cephalex in; Route:or al; refills: 0 Not Available Not Available Not Available lisinopri l 09/05 completed Medicati on Descript ion: lisinopr il; Route:or al; refills: 0 Not Available Not Available Not Available diclofena c 1 % topical gel apply 4 gm to affected area up to 4 times daily active Not Available Not Available No t Available silodosin 8 mg capsule Take 1 capsule by mouth every day active Not Available Not Available No t Available Spiriva Respimat 2.5 mcg/actua tion solution for inhalatio n Inhale 2 puffs every day by inhalati on route. 06/07 completed Not Available Not Available Not Available Bevespi Aerospher e 9 mcg-4.8 mcg HFA aerosol inhaler Inhale 2 puffs twice a day by inhalati on route. 06/07 completed Not Available Not Available Not Available Fluzone High-Dose 5825-8259 (PF) 180 mcg/0.5 mL intramusc ular syringe 09/05 completed Not Available Not Available Not Available Vitals Date Recorded Body height Body mass index (BMI) Body weight Provider Name and Address Organization Details Last Updated DateTime 07/04/2024 177.8 cm 28.7 kg/m2 77741.47 g Ijeoma [facility] 07/04/2024 14:05:38 Date Recorded Body height Body mass index (BMI) Body weight Provider Name and Address Organization Details Last Updated DateTime 07/11/2022 177.8 cm 28.3 kg/m2 77242.7 g [facility] 15:04:34 Date Recorded Body height Body mass index (BMI) Body weight Provider Name and Address Organization Details Last Updated DateTime 07/17/2023 177.8 cm 28.3 kg/m2 61612.7 g Enrique [facility] 07/17/2023 15:56:08 Date Recorded Body height Body mass index (BMI) Body weight Provider Name and Address Organization Details Last Updated DateTime 01/16/2023 177.8 cm 28.6 kg/m2 08965.88 g Enrique [facility] 01/16/2023 20:25:55 Date Recorded Body height Body mass index (BMI) Body weight Provider Name and Address Organization Details Last Updated DateTime 02/05/2024 177.8 cm 28.3 kg/m2 52677.7 g Ijeoma [facility] 02/05/2024 14:27:46 Social History Question Answer Notes LastModified by Organizat ion Details LastModified Time Tobacco Smoking Status [facility] 14:40:27 How Much Tobacco Do You Chew? 1/day Information not available 06/07/2021 Exposure To Fumes Yes [email or web address] Informa tion not available 09/05/2017 Exposure To Dust Yes [email or web address] Informat ion not available 09/05/2017 Exposure To Asbestos Yes [email or web address] Information not available 09/05/2017 Exposure To Animals Yes [email or web address] Information not available 09/05/2017 Exposure To Other Toxic Chemicals Yes [email or web address] Information not available 09/05/2017 What Was The Date Of Your Most Recent Tobacco Screening? 07/04/2024 [email or web address] Information not available 07/04/2024 What Is Your Relationship Status? Information not available 06/07/2021 At What Age Did You Start Smoking Tobacco? 20 [email or web address] Information not available 09/05/2017 How Much Tobacco Do You Smoke? 1 PPD [email or web address] Information not available 09/05/2017 How Many Years Have You Smoked Tobacco? 30 [email or web address] Information not available 09/05/2017 Sex: Male Functional Status Question Answer Note LastModified by Organizat ion Details LastModified Time Do you or have you ever used any other forms of tobacco or nicotine? Yes Information not available 06/07/2021 What is your level of alcohol consumption? Occasional [email or web address] Information not available 09/05/2017 Do you or have you ever used smokeless tobacco? 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 Never used electronic cigarettes Information not available 06/07/2021 What is your exercise level? None [email or web address] Information not available 09/05/2017 Mental Status None recorded. Family History Relationship Description Onset Age of this Age Resolved Age Notes LastModified by Organization Details LastModified Time Mother Family history of malignant neoplasm [email or web address] Not available 09/05 14:39:55 Mother Heart disease [email or web address] Not available 09/05 14:40:05 Father Heart disease Not available 09/05 14:40:05 Father Diabetes mellitus Not available 2020 17:23:31 Medical History Condition Response Coronary Artery Disease N Other N Gout N Kidney Stones N Kidney Cyst N Enlarged Prostate Y Heart Arrhythmia N Head Trauma/Injury N Erectile Dysfunction Y Emphysema N Sexually Transmitted Disease N Depression N Pneumonia N Incontinence N Prostate Problems Y Cancer Prostate N Paralysis N Anxiety Disorder N Hemorrhoids N Obesity N Arthritis N Infertility N Acid Reflux (GERD) N Hematuria N Cancer N Stroke N Neck Injury N Previous Radiation Therapy? N Neurologic Disorder N Kidney Disease N Heart Conditions N Kidney or Bladder Problems N Urinary Problems N Constipation N Brain Injury N Ulcers N Prostate Hypertrophy Y Low Testosterone N Tuberculosis N Previous Chemotherapy? N AIDS/HIV N BPH Y Urinary Tract Infection N Asthma N Cardiac Disease N Thyroid Disorder N Hepatitis N PCOS N Colon Cancer N Hernia N Colon/Rectal Disorders N Ostomy N Glaucoma N Pacemaker N Anesthesia Complications N Genitourinary Disease N Radiation Therapy N Chronic Kidney Disease N Bladder or Kidney Problems N Back Injury N High Cholesterol N High PSA Y Nervous System Disorder N Liver Disease N Organ Transplant N Dialysis N Allergies/Hayfever N False Teeth Y Chronic Obstructive Pulmonary Disease Y Parkinson's Disease N Chemotherapy N Transplant N Anemia N Multiple Sclerosis N Chest Pain N Back Pain Y Proteinuria N Heart Attack ([place]) N Mental Illness N Ovarian Cancer N Diabetes N Seizures/Epilepsy N Genitourinary problem(s) N Congestive Heart Failure (CHF) N Kidney Failure N Sleep Apnea Y Heart Disease N Bronchitis N Hypertension Y Past Encounters Encounter ID Performer Location Encounter Start Date Encounter Closed Date Diagnosis/Indication Diagnosis SNOMED-CT Code Diagnosis ICD10 Code Diagnosis Note [id number] TRAVIS DE LA CRUZ MD PULMONARY [address], [address] [place] [address] 09/05/2017 13:51:36 09/07/2017 14:56:09 Dyspnea 713857302 R06.02 Nonspecifi c ventilator y defect. Could be due to gas trapping associated with his smoking history or mild COPD or early restrictiv e disease or could just be due to natural aging. Trial of Spiriva for 2 weeks to see if it helps him. Inspiratory wheezing 315 40261 R06.2 He has a very interestin g pulmonary exam. His fixed squeak in inspiratio n localized to his RUL. This suggests an obstructin g airway lesion or stricture, but it should also be noticed on expiration . I'll get an CT scan of his chest but he will likely need an airway exam. [id number] TRAVIS DE LA CRUZ MD PULMONARY [address], [address] [place] [address] 09/27/2017 13:43:51 10/02/2017 10:04:24 Inspiratory wheezing 77339028 R06.2 He has a very interestin g pulmonary exam. His fixed squeak in inspiratio n localized to his RUL. This suggests an obstructin g airway lesion or stricture, but it should also be noticed on expiration . Nothing abnormal on CT of chest. I imagine this is caused by an airway diverticul a or anomalous airway. I will schedule him for an airway exam to make sure he doesn't have a small endobronch ial obstructin g lesion. Dyspnea [id number] R06.02 Nonspecifi c ventilator y defect. Could be due to gas trapping associated with his smoking history or mild COPD or could just be due to natural aging. No improvemen t with spiriva. Will do a trial of bevespi. [id number] TRAVIS DE LA CRUZ MD SURGERY SCHEDULE [address] [place] [address] 10/04/2017 11:27:50 10/04/2017 11:28:52 [id number] JERE QUINTERO MD [facility] EXTENDED SERVICES [address] [facility],[place] [address] 05/28/2020 15:30:32 05/29/2020 16:57:18 Benign prostatic hyperplasia with outflow obstruction [id number] N40.1 [id number] JOHNATHAN HARMAN JR, MD [facility] [address] [facility] [facility],[address] [place] [address] 06/07/2021 15:20:44 06/14/2021 21:29:37 Benign prostatic hyperplasia with outflow obstruction [id number] N40.1 Prostate s pecific antigen above reference range [id number] R97.20 [id number] JOHNATHAN HARMAN JR, MD [facility] [address] [facility],[address] [place] [address] 11/29/2021 14:29:12 12/02/2021 18:37:15 Benign prostatic hyperplasia with outflow obstruction [id number] N40.1 Prostate s pecific antigen above reference range 405305717 R97.20 [id number] JOHNATHAN HARMAN JR, MD [facility] [address] [facility] [facility],[address] [facility] [place] [address] 02/14/2022 12:57:46 02/22/2022 13:33:13 Benign prostatic hyperplasia with outflow obstruction [id number] N40.1 Prostate s pecific antigen above reference range [id number] R97.20 Primary er ectile dysfunction [id number] N52.9 [id number] JOHNATHAN HARMAN JR, MD [facility] [address] [facility],[address] [place] [address] 07/11/2022 14:31:43 07/14/2022 04:48:19 Benign prostatic hyperplasia with outflow obstruction [id number] N40.1 [id number] JOHNATHAN HARMAN JR, MD [facility] [address] [place] [address] 01/16/2023 13:50:22 01/16/2023 22:55:33 Benign prostatic hyperplasia with outflow obstruction [id number] N40.1 Prostate s pecific antigen above reference range [id number] R97.20 [id number] JOHNATHAN HARMAN JR, MD [facility] [address] [place] [address] 07/17/2023 15:12:13 07/17/2023 18:40:43 Benign prostatic hyperplasia with outflow obstruction [id number] N40.1 Primary er ectile dysfunction [id number] N52.9 Prostate s pecific antigen above reference range 575694461 R97.20 [id number] JOHNATHAN HARMAN JR, MD [facility] [address] [facility] [facility] [address] [place] [address] 02/05/2024 13:03:45 02/05/2024 17:24:20 Prostate specific antigen above reference range 209293438 R97.20 Recheck PSA 3 months. If remains elevated may need MRI. Benign pro static hyperplasia with outflow obstruction [id number] N40.1 [id number] JOHNATHAN HARMAN JR, MD [facility] [address] [place] [address] 07/04/2024 13:43:16 07/04/2024 14:15:35 Prostate specific antigen above reference range 395753169 R97.20 Benign pro static hyperplasia with outflow obstruction [id number] N40.1 Health Concerns Section Related Observation LastModified by Organization Detai ls LastModified Time None Recorded Concern Status LastModified by Organization Details LastModified Time None Recorded Advance Directives Directive None Recorded Payers Insurance Date Sequence Insurance Name Policy Number Policy Buagh Covered Member ID Baugh Member ID Guarantor Name 01/24/2023 1 [employer] - GOLD PLUS (MEDICARE REPLACEMENT/AD VANTAGE - HMO) Nash Galeas [id number] Nash Galeas 07/04/2024 1 BCBS-[place]: [place] - MED[place]LUE [place] (MEDICARE REPLACEMENT HMO) [id number] Nash Galeas [id number] Nash Galeas Notes Date Note Type Note Provider Name and Address Organization Details Recorded Time 07/11/2022 text/html Patient is in to day for follow-up of rising PSA and BPH. He is currently using Rapaflo and finasteride for treatment of BPH . Patient has a history of elevated PSA. Recent PSA is 2.12 June 2022 patient does report erectile dysfunction with early detumescence but is not currently using any medical therapy for this. JOHNATHAN HARMAN JR, MD [address] [place] [address], [phone], [facility] 07/13/2022 08:47:05 01/16/2023 text/html Patient is in to day for follow-up of rising PSA and BPH. He is currently using Rapaflo and finasteride for treatment of BPH . Patient would like to change back to tamsulosin twice daily. Patient has a history of elevated PSA. Recent PSA is 2.07 December 2022 patient does report erectile dysfunction with early detumescence but is not currently using any medical therapy for this. JOHNATHAN HARMAN JR, MD [address] [place] [address], [phone], [facility] 01/30/2023 07:05:28 07/17/2023 text/html Patient is in to day for follow-up of rising PSA and BPH. He is currently using Tamsulosin twice daily and finasteride for treatment of BPH . Margaux Patient has a history of elevated PSA. Recent PSA is 2.10 June 2023 patient does report erectile dysfunction with early detumescenceUsing sildenafil. JOHNATHAN HARMAN JR, MD [address] [place] [address], [phone], [facility] 07/22/2023 12:28:24 02/05/2024 text/html Patient is in to day for follow-up of rising PSA and BPH. He is currently using Tamsulosin twice daily and finasteride for treatment of BPH . Trent Patient has a history of elevated PSA. Recent PSA is 2.10 June 2023 PSA 8.9 01/2024. Brother has been diagnosed with ACP patient does report erectile dysfunction with early detumescenceUsing sildenafil. JOHNATHAN HARMAN JR, MD [address] [place] [address], [phone], [facility] 02/17/2024 10:39:48 07/04/2024 text/html The patient is a 79-year-old male presenting with follow-up for elevated PSA and BPH. Previous management included tamsulosin and finasteride. PSA levels remain elevated. Notable family history includes a brother with recent prostate cancer. Repeat PSA evaluation is planned. JOHNATHAN HARMAN JR, MD [address] [place] [address], [phone], [facility] 07/07/2024 09:51:31
--- OUTSIDE RECORDS SUMMARY | 2024-09-09 11:19 | XMS_ITS | Referral Summary ---
Author Organization [employer] ([place], [place], [place], [place]) Address [address] [place] [address] Care Team Providers Care Last Picker Name Role Phone Unavailable Primary Care Provider [...]
--- OUTSIDE RECORDS SUMMARY | 2024-09-09 11:20 | XMS_ITS | Encounter Summary ---
Author Organization [employer] ([place], [place], [place], [place]) Address [address] [place] [address] Care Team Providers Care Surgical Nurse Name Role Phone Unavailable Primary Care Provider Unavailabl e Encounter Details Date Type Department Care Team (Late st Contact Info) Description 06/15/2018 Transcribed Document [facility] [place] [facility] [address] [place] [address] ProviderCarolnia MD [address] [place] [address] Social History Tobacco Use Types Packs/Day Years Used Date Smoking Tobacco: Never Assessed Sex and Gender Information Value Date Recorded Sex Assigned at Not on file Legal Sex Male 6:30 PM CDT Gender Identity Not on file Sexual Orientation Not on file documented as of this encounter Miscellaneous Notes * Cerner Conversion Note - Carolina ProviderMD - 06/15/2018 11:10 AM CDT Nursing Discharge Summary Entered On: 06/15/2018 11:10 EDT Performed On: 06/15/2018 11:10 EDT by Liz Dutton RN Discharge Documentation Discharge Date/Time : 06/15/2018 12:55 EDT Liz Dutton RN - 06/15/2018 12:54 EDT Patient Disposition, General : Discharge Discharge To : Home with ambulatory/outpatient follow-up Mode Of Departure, General Discharge : Private vehicle Accompanied By, Discharge : Spouse IV Discontinued : Yes Personal Belongings With Patient : Yes Discharge Instructions Reviewed With, Opportunity For Questions Given : Patient, Spouse Patient Education Completed : Yes Teaching Method : Explanation Teaching Evaluation : Returns demonstration, Verbalizes understanding Liz Dutton RN - 06/15/2018 11:10 EDT documented in this encounter Plan of Treatment Not on file documented as of this encounter Visit Diagnoses Not on filedocumented in this encounter
--- OUTSIDE RECORDS SUMMARY | 2024-09-09 11:20 | XMS_ITS | Encounter Summary ---
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 Role Phone Unavailable Primary Care Provider Unavailabl e Encounter Details Date Type Department Care Team (Late st Contact Info) Description 06/15/2018 Transcribed Document [facility] [place] Family Medicine Counts include 234 beds at the [facility] [place] [address] ProviderCarolina MD [address] [place] [address] Social History Tobacco Use Types Packs/Day Years Used Date Smoking Tobacco: Never Assessed Sex and Gender Information Value Date Recorded Sex Assigned at Not on file Legal Sex Male 6:30 PM CDT Gender Identity Not on file Sexual Orientation Not on file documented as of this encounter Miscellaneous Notes * Cerner Conversion Note - Carolina Mancera MD - 06/15/2018 11:08 AM CDT Patient Education Materials Follows: Angiogram, Care After Refer to this sheet in the next few weeks. These instructions provide you with information about caring for yourself after your procedure. Your health care provider may also give you more specific instructions. Your treatment has been planned according to current medical practices, but problems sometimes occur. Call your health care provider if you have any problems or questions after your procedure. What can I expect after the procedure? After your procedure, it is typical to have the following: ??? Bruising at the catheter insertion site that usually fades within 1?2 weeks. ??? Blood collecting in the tissue (hematoma) that may be painful to the touch. It should usually decrease in size and tenderness within 1?2 weeks. Follow these instructions at home: ??? Take medicines only as directed by your health care provider. ??? You may shower 24?48 hours after the procedure or as directed by your health care provider. Remove the bandage (dressing) and gently wash the site with plain soap and water. Pat the area dry with a clean towel. Do not rub the site, because this may cause bleeding. ??? Do nottake baths, swim, or use a hot tub until your health care provider approves. ??? Check your insertion site every day for redness, swelling, or drainage. ??? Do not apply powder or lotion to the site. ??? Do notlift over 10 lb (4.5 kg) for 5 days after your procedure or as directed by your health care provider. ??? Ask your health care provider when it is okay to: ? Return to work or school. ? Resume usual physical activities or sports. ? Resume sexual activity. ??? Do notdrive home if you are discharged the same day as the procedure. Have someone else drive you. ??? You may drive 24 hours after the procedure unless otherwise instructed by your health care provider. ??? Do notoperate machinery or power tools for 24 hours after the procedure or as directed by your health care provider. ??? If your procedure was done as an outpatient procedure, which means that you went home the same day as your procedure, a responsible adult should be with you for the first 24 hours after you arrive home. ??? Keep all follow-up visits as directed by your health care provider. This is important. Contact a health care provider if: ??? You have a fever. ??? You have chills. ??? You have increased bleeding from the catheter insertion site. Hold pressure on the site. Get help right away if: ??? You have unusual pain at the catheter insertion site. ??? You have redness, warmth, or swelling at the catheter insertion site. ??? You have drainage (other than a small amount of blood on the dressing) from the catheter insertion site. ??? The catheter insertion site is bleeding, and the bleeding does not stop after 30 minutes of holding steady pressure on the site. ??? The area near or just beyond the catheter insertion site becomes pale, cool, tingly, or numb. This information is not intended to replace advice given to you by your health care provider. Make sure you discuss any questions you have with your health care provider. Document Released: 09/08/2005 Document Revised: 07/28/2016 Document Reviewed: 07/24/2013 [employer] Interactive Patient Education ? 2017 [employer] Radial Site Care Introduction Refer to this sheet in the next few weeks. These instructions provide you with information about caring for yourself after your procedure. Your health care provider may also give you more specific instructions. Your treatment has been planned according to current medical practices, but problems sometimes occur. Call your health care provider if you have any problems or questions after your procedure. What can I expect after the procedure? After your procedure, it is typical to have the following: ??? Bruising at the radial site that usually fades within 1?2 weeks. ??? Blood collecting in the tissue (hematoma) that may be painful to the touch. It should usually decrease in size and tenderness within 1?2 weeks. Follow these instructions at home: ??? Take medicines only as directed by your health care provider. ??? You may shower 24?48 hours after the procedure or as directed by your health care provider. Remove the bandage (dressing) and gently wash the site with plain soap and water. Pat the area dry with a clean towel. Do not rub the site, because this may cause bleeding. ??? Do nottake baths, swim, or use a hot tub until your health care provider approves. ??? Check your insertion site every day for redness, swelling, or drainage. ??? Do notapply powder or lotion to the site. ??? Do notflex or bend the affected arm for 24 hours or as directed by your health care provider. ??? Do notpush or pull heavy objects with the affected arm for 24 hours or as directed by your health care provider. ??? Do notlift over 10 lb (4.5 kg) for 5 days after your procedure or as directed by your health care provider. ??? Ask your health care provider when it is okay to:? Return to work or school. ? Resume usual physical activities or sports. ? Resume sexual activity. ??? Do notdrive home if you are discharged the same day as the procedure. Have someone else drive you. ??? You may drive 24 hours after the procedure unless otherwise instructed by your health care provider. ??? Do notoperate machinery or power tools for 24 hours after the procedure. ??? If your procedure was done as an outpatient procedure, which means that you went home the same day as your procedure, a responsible adult should be with you for the first 24 hours after you arrive home. ??? Keep all follow-up visits as directed by your health care provider. This is important. Contact a health care provider if: ??? You have a fever. ??? You have chills. ??? You have increased bleeding from the radial site. Hold pressure on the site. Get help right away if: ??? You have unusual pain at the radial site. ??? You have redness, warmth, or swelling at the radial site. ??? You have drainage (other than a small amount of blood on the dressing) from the radial site. ??? The radial site is bleeding, and the bleeding does not stop after 30 minutes of holding steady pressure on the site. ??? Your arm or hand becomes pale, cool, tingly, or numb. This information is not intended to replace advice given to you by your health care provider. Make sure you discuss any questions you have with your health care provider. Document Released: 03/25/2011 Document Revised: 07/28/2016 Document Reviewed: 09/08/2014 ? 2017 [employer] Moderate Conscious Sedation, Adult, Care After These instructions provide you with information about caring for yourself after your procedure. Your health care provider may also give you more specific instructions. Your treatment has been planned according to current medical practices, but problems sometimes occur. Call your health care provider if you have any problems or questions after your procedure. What can I expect after the procedure? After your procedure, it is common: ??? To feel sleepy for several hours. ??? To feel clumsy and have poor balance for several hours. ??? To have poor judgment for several hours. ??? To vomit if you eat too soon. Follow these instructions at home: For at least 24 hours after the procedure: ??? Do not: ? Participate in activities where you could fall or become injured. ? Drive. ? Use heavy machinery. ? Drink alcohol. ? Take sleeping pills or medicines that cause drowsiness. ? Make important decisions or sign legal documents. ? Take care of children on your own. ??? Rest. Eating and drinking ??? Follow the diet recommended by your health care provider. ??? If you vomit: ? Drink water, juice, or soup when you can drink without vomiting. ? Make sure you have little or no nausea before eating solid foods. General instructions ??? Have a responsible adult stay with you until you are awake and alert. ??? Take cpqh-hyf-oeugkig and prescription medicines only as told by your health care provider. ??? If you smoke, do not smoke without supervision. ??? Keep all follow-up visits as told by your health care provider. This is important. Contact a health care provider if: ??? You keep feeling nauseous or you keep vomiting. ??? You feel light-headed. ??? You develop a rash. ??? You have a fever. Get help right away if: ??? You have trouble breathing. This information is not intended to replace advice given to you by your health care provider. Make sure you discuss any questions you have with your health care provider. Document Released: 12/11/2013 Document Revised: 07/25/2016 Document Reviewed: 06/11/2016 [employer] Interactive Patient Education ? 2017 [employer] documented in this encounter Plan of Treatment Not on file documented as of this encounter Visit Diagnoses Not on filedocumented in this encounter
--- OUTSIDE RECORDS SUMMARY | 2024-09-09 11:20 | XMS_ITS | Encounter Summary ---
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 Unavailable Primary Care Provider Unavailabl e Encounter Details Date Type Department Care Team (Late st Contact Info) Description 06/15/2018 Transcribed Document [facility] [place] Family Medicine [address] [place] [address] ProviderCarolina MD [address] [place] [address] Social History Tobacco Use Types Packs/Day Years Used Date Smoking Tobacco: Never Assessed Sex and Gender Information Value Date Recorded Sex Assigned at Not on file Legal Sex Male 6:30 PM CDT Gender Identity Not on file Sexual Orientation Not on file documented as of this encounter Miscellaneous Notes * Cerner Conversion Note - Carolina ProviderMD - 06/15/2018 8:53 AM CDT Pre Procedure Adult Entered On: 06/15/2018 8:59 EDT Performed On: 06/15/2018 8:53 EDT by Liz Dutton RN Height and Weight, Clinical Dosing Height Source : Stated Height Entry Format : [place] Height, Feet : 5 ft(Converted to: 152 cm, 60 Inch) Height, Inches : 10 Inch(Converted to: 0 ft 10 Inch, 25.40 cm) Clinical Height : 177.8 cm Weight Source : Standing scale Weight Entry Format : [place] Clinical Dosing Weight : 97.73 kg Weight, Pounds : 215 lb Body Surface Area (BSA) : 2.15 m2 Body Mass Index : 30.9 kg/m2 (HI) [place] Body Weight : 72 kg Liz Dutton RN - 06/15/2018 8:53 EDT Health Histories Smoking Status : Former smoker, quit more than 30 days ago Smokeless Tobacco Status : Never Liz Dutton RN - 06/15/2018 8:53 EDT Social History (As Of: 06/15/2018 08:59:03 EDT) Tobacco: Former smoker, quit more than 30 days ago Smoking Status. Last Used: quit 1993. (Last Updated: 06/15/2018 08:53:54 EDT by Liz Dutton, RN) Alcohol: Alcohol Use History Yes. Alcohol Use Frequency Monthly. (Last Updated: 06/15/2018 08:54:06 EDT by Liz Dutton, RN) Substance Abuse: Drug Use Hx: No. (Last Updated: 06/15/2018 08:54:12 EDT by Liz Dutton, RN) Infectious Disease History Infectious Disease History : Chicken pox/Shingles, Measles, Mumps Fever/Chills Last 48 Hours : No Travel To [place] with Travel Advisories : No Travel Outside [place] Within Last 30 Days : No Contact With Traveler to Advisory Region : No Tuberculosis Symptoms : None Liz Dutton RN - 06/15/2018 8:53 EDT Anesthesia/Transfusion History Family History of Anesthesia Reaction : No prior transfusion(s) Blood Transfusion Acceptable to Patient : Yes Transfusion History : Prior anesthesia without reaction Family History of Anesthesia Reaction : None Liz Dutton RN - 06/15/2018 8:53 EDT Functional Assessment Living Situation : Home Patient Lives With : Spouse Current Home Treatments : None Liz Dutton RN - 06/15/2018 8:53 EDT Psychosocial History Currently in Unsafe Situation : No Tried to Harm Yourself in the Past? : No Thoughts of Harming/Killing Yourself : No Liz Dutton RN - 06/15/2018 8:53 EDT Advance Directive Patient has Advance Directive *Q : No, patient refuses Advance Directive information Liz Dutton RN - 06/15/2018 8:53 EDT Teaching/Learning Assessment Barriers To Learning : None evident Individuals Taught : Patient, Spouse Readiness to Learn : Explanation Learning Style Preferences Patient : Verbal explanation Learning Style Preferences Family : Verbal explanation Liz Dutton RN - 06/15/2018 8:53 EDT Education Topics, Periop Preadmission Perioperative Education [place] : Verbalizes understanding Infection Control : Verbalizes understanding IV's : Verbalizes understanding NPO Status/Directions : Verbalizes understanding Pain Management : Verbalizes understanding Preprocedure Preparations : Verbalizes understanding Preprocedure Tests/Labs : Verbalizes understanding Liz Dutton RN - 06/15/2018 8:53 EDT General Info Arrived From : Home Mode of Arrival on Unit : Ambulatory Patient Arrival Date/Time : 06/15/2018 8:37 EDT Legal Guardian : Spouse Support Person/Pt Rep Name : Lauren Galeas Support Person/Pt Rep Contact Information : [phone] Want Family/Rep/Phys Notified of Admit : No Emergency Contact #1 : Lauren Galeas Emergency Contact #1 Emergency Contact #1 Relationship : Emergency Contact #2 : NA Emergency Contact #2 Phone Number : NA Emergency Contact #2 Relationship : NA Information Obtained From : Patient Primary Language : Bengali Preferred Communication Mode : Verbal Communication Barrier : None Liz Dutton RN - 06/15/2018 8:53 EDT Vital Measurements Temperature Source : Temporal artery scanning Temperature Mode : Fahrenheit Temperature, Fahrenheit : 97.9 Deg F Clinical Temperature, C : 36.6 Deg C Peripheral Pulse Rate : 70 bpm Systolic Blood Pressure : 157 mmHg (HI) Diastolic Blood Pressure : 80 mmHg Oxygen Saturation : 94 % Oxygen Therapy Mode : Room air Liz Dutton RN - 06/15/2018 8:53 EDT Sleep Apnea Risk Assmt Hx of Obstructive Sleep Apnea Diagnosis : No Snore Loudly : No Tired, Fatigued, or Sleepy During Day : Yes Observed Stopping Breathing During Sleep : No Have/Are Being Treated for Hypertension : Yes BMI Greater Than 35 kg/m2 : No Age over 50 Years Old : Yes Neck Circumference Greater Than 40 cm : No Gender Male : Yes STOP-BANG Sleep Apnea Risk Level Score : 4 Liz Dutton RN - 06/15/2018 8:53 EDT Ibrahima Scale Ibrahima Sensory Perception : No impairment Ibrahima Moisture : Rarely moist Ibrahima Activity : Walks frequently Ibrahima Mobility : No limitation Ibrahima Nutrition : Excellent Ibrahima Friction and Shear : No apparent problem Ibrahima Score : 23 Liz Dutton RN - 06/15/2018 8:53 EDT Pain Assessment Pain Assessment : Initial assessment Pain Scale Used : 0-10 Scale Liz Dutton RN - 06/15/2018 8:53 EDT Fall Risk Scales ABCs Fall Injury Risk Identification : None GONZALEZ Hx Falls Immediate/Within 3 Months : No Gonzalez Secondary Diagnosis : No GONZALEZ Use of Ambulatory Aid : None GONZALEZ IV Therapy or IV Access : Yes Gonzalez Gait/Transferring : Normal, bedrest, immobile Gonzalez Mental Status : Oriented to own ability Gonzalez Fall Risk Score : 20 GONZALEZ Fall Scale Risk Level : 0-24 Low Risk [place] Fall Interventions : Adequate lighting, Bed in low position, Call device within reach, Hourly comfort/safety rounds, Non-slip footwear, Personal items within reach, Upper side-rails up, Wheels locked, Wires/Cords secured Liz Dutton RN - 06/15/2018 8:53 EDT Valuables and Belongings Valuables and Belongings : Clothing, Jewelry, Personal devices, Personal items Clothing : Common streetwear Clothing Disposition : Bedside, With family, Declines to send to security/safe Personal Device Disposition : With family, With patient, Declines to send to security/safe Jewelry : Ring Jewelry Disposition : With patient, Declines to send to security/safe Personal Devices : Glasses, Hearing aid, left, Hearing aid, right Personal Items : Wallet Personal Items Disposition : With family, Declines to send to security/safe Liz Dutton RN - 06/15/2018 8:53 EDT Pain Scale Intensity : 0 Liz Dutton RN - 06/15/2018 8:53 EDT Image 4 - Images currently included in the form version of this document have not been included in the text rendition version of the form. documented in this encounter Plan of Treatment Not on file documented as of this encounter Visit Diagnoses Not on filedocumented in this encounter
--- OUTSIDE RECORDS SUMMARY | 2024-09-09 11:20 | XMS_ITS | Continuity of Care Document ---
Author Organization [place] - [facility] & [facility], [facility] Address [address] [place] [address] Care Team Providers Care Contact Lens Technician Name Role Phone ROSALVA BERMAN Primary Care Provider [phone] Assessment Encounter Date Assessment Date Assessment LastModified by Organization Details LastModified Time 08/08/2024 08/08/2024 Mr. Galeas was referred by Dr. Cazares for management of chronic low back pain. The patient denies DM, anti-coagulan t use, and history of MRSA. The patient presents to the clinic today for a medication refill. [email or web address] Not available 08/11/2024 20:14:48 Plan of Treatment Reminders Order Date Submit Date Provider Last Modified By Organization Details Last Modified Time Details Appointments OV EST 15 2024 08:15A M Wilmer Argueta MD Not available Not available Not available Lab None recorded. Referral None recorded. Procedures None recorded. Surgeries None recorded. Imaging None recorded. Medication Orders gabapenti n 300 mg capsule 2024 025 [facility], [address] [place] [address], [id number], 08/15/2024 11:50:12 diclofena c sodium 75 mg tablet,de layed release 2024 025 [facility], [address] [place] [address], [id number], 08/09/2024 12:41:58 Patient TargetsNo targets recorded. Patient Instructions Encounter Date Encounter Id Patient Instructions Last Modified By Organization Details Last Modified Time 08/08/2024 [id number] I have discussed in great detail our potential treatment options which would include a rehabilitative approach to care. This program would include medication management, Physical Therapy, consideration for interventional procedures as appropriate, and lifestyle modification (diet, weight loss, exercise, smoking/tobacco cessation, holistic approach including meditation and yoga). The patient understands and agrees prior to proceeding with this plan. _ __ __ __ __ __ __ __ __ __ __ __ __ __ __ __ __ __ __ __ __ __ __ __ __ __ __ __ _ RECORDS REVIEW: As per clinic policy, we will have the patient sign a release to obtain previous imaging and clinical notes. - PROCEDURE: I counseled the patient extensively and informed of the risks of the procedure, including the risk of paralysis, nerve damage, respiratory arrest, arrhythmias, stroke, weakness, and infection, which although very low, could result in or disability. The patient acknowledged to me that they understand and accept these risks. RN EDUCATION Extensive coordination of care provided by RN to educate patient on upcoming procedure and to coordinate obtaining extensive incoming medical records. _ __ __ __ __ __ __ __ __ __ __ __ __ __ __ __ __ __ __ __ __ __ __ __ __ __ __ __ _ PSYCH: Pain affecting Neuro-psych behavior was discussed. Discussed about pain psychological counseling as a part of the multimodal approach to pain treatment. _ __ __ __ __ __ __ __ __ __ __ __ __ __ __ __ __ __ __ __ __ __ __ __ __ __ __ __ _ REHABILITATION: Discussed with the patient the importance of diet, daily physical activity and PT. Discussed with the patient the need to be scheduled for physical therapy since physical therapy will prolong the benefits of the procedure and interventions. _ __ __ __ __ __ __ __ __ __ __ __ __ __ __ __ __ __ __ __ __ __ __ __ __ __ __ __ _ I have reviewed patient's YESSENIA report prior to prescribing Schedule II, III, and IV medications that require review by law. [place] PDMP reviewed and appropriate. UDS reviewed and consistent with current regimen. Controlled substance contract reviewed and signed line by line. Risks of medication therapy including respiratory depression, , and hazards of operating heavy machinery including automobiles discussed at length. Patient given information with six opioid/Controlled substance safety steps: 1. Never take a prescription pain medication unless it is prescribed for you. 2. Do not take pain medicine with alcohol. 3. Do not take more doses than prescribed. 4. Use with other sedative or anti-anxiety medications can be dangerous. 5. Avoid using prescription pain medication to help you fall asleep. 6. Lock up prescription pain medications. Opioid Contract Discussion: The patient was given a copy of the Clinic Prescription Drug Agreement and was counseled extensively regarding its contents. The patient is to take their pain medication exactly as prescribed. No increases in medications are to be without first contacting the office and explaining the reason behind the increase and getting approval to do so. The patient is not to obtain medications from other providers without first notifying the other provider what they obtain from this clinic and need to notify this clinic when they obtain pain medications from other providers. The patient is to bring their pain medications to each and every office visit for pill counts to monitor compliance for their safety. The patient is subject to periodic urine drug testing at the discretion of the provider as well as state and federal regulations. The patient was warned of the risks and benefits of taking opioid pain medication, the risk of addiction, the risk of withdrawal and the differences. [email or web address] Not available 08/11/2024 20:17:42 Reason for Referral None Reported. Problems Name Problem SNOMED Code Status Onset Date Resolution Date Notes Provider Name and Address Organization Details Recorded Time Spinal stenosis of lumbar region 47319504 Active 2023 MIKE Baldwin - [facility] - [place] [facility] [place] 11/07/202 4 15:11:51 Degeneration of lumbar intervertebra l disc 00403985 Active 2023 Fidelina Montgomery null, [place] - [facility] [place] 4 15:12:30 Radicular pain 43474650 Active 2023 Fidelina Montgomery null, [place] [facility] 4 15:12:38 Lumbar radiculopathy 594343209 Active 2023 Fidelina Montgomery null, [place] [facility] [place] 4 15:19:48 Lumbar spondylosis 145087892 Active 2023 Fidelina Montgomery null, [place] [facility] [place] 4 08:57:43 Cholangiectas is 437423210 Active 2022 Not Available [facility] 3 04:32:31 Nausea and vomiting 70551370 Active 2022 Not Available [facility] 3 04:32:31 Pancreatic duct disorder 858550352 Active 2022 Louie Sofia PA-C [address] , [place], [address] , [place] [facility] [place] [facility] [place] 3 09:49:33 Prediabetes 083843615 Active 2023 Rosalva Cazares MD [address] , [place], [address] , [place] [facility] [place] [facility] [place] 4 09:14:00 Hyperlipidemi a 92059166 Active 2023 Rosalva Cazares MD [address] , [place], [address] , [place] [facility] [place] [facility] [place] 4 09:14:01 Essential hypertension 36462363 Active 2023 Rosalva Cazares MD [address], [place], [address] , [place] [facility] [place] [facility] [place] 4 09:14:10 Benign prostatic hyperplasia 198294125 Active 2023 Rosalva Cazares MD [address], [place], [address] , [place] [facility] [place] [facility] [place] 4 09:17:03 Eczema of external auditory canal 23882650 Active 2023 Rosalva Cazares MD [address], [place], [address] , [place] [facility] [place] [facility] [place] 4 09:17:04 Thyroid function tests abnormal 192845882 Active 2023 Rosalva Cazares MD [address] , [place], [address] , [place] [facility] [place] [facility] [place] 4 09:18:00 Problem Notes None recorded. Procedures Surgical History Date Name Laterality Status Provider Name and Address Organization Details Recorded Time 04/28/19 21 colonoscopy completed Briseida Tabatha [place] - [facility] & [place] 06/01/2022 10:40:13 06/16/19 18 cardiac catheterization completed Briseida Tabatha [place] [facility] & [place] 06/01/2022 10:39:22 03/06/19 17 cataract surgery completed Briseida Tabatha [place] [facility] [place] 06/01/2022 10:38:20 03/06/19 15 colonoscopy completed Briseida Tabatha [place] [facility] [place] [facility] [place] 06/01/2022 10:37:44 03/06/19 10 colonoscopy completed Briseida [place]atha [place] [facility] [place] [facility] [place] 06/01/2022 10:37:33 blepharoplasty completed Briseida Tabatha [place] [facility] [place] [facility] [place] 06/01/2022 10:36:55 dental surgical procedure completed Haley Rothakash [place] - [facility] [place] [facility] [place] 11/15/2023 15:33:10 Imaging Results None recorded. Procedure Notes None recorded. Medical Equipment None Reported. Allergies Allergen ID Allergen Name Allergen Category Reaction Reaction Severity Criticality Documentation Date Start Date Code Code System Note Provider Name and Address Organization Details Recorded Time 139588 No known allergy (situatio n) Not available Not available Not available Not available 07/25/2024 95411 6003 SNOMED [facility], [place] - [facility] - [place] [facility] [place] 11:03:07 No known drug allergies Medications Name [...] Updated DateTime 5 177.8 cm 29.6 kg/m2 50462.4 7 g 97.7 [degF] 96 % 96 % 71 /min 162/75 mm[Hg] Velinda Tamera [facility] & [place] 5 10:59:52 Social History Question Answer Notes LastModified by Sequence Designat ion Details LastModified Time Tobacco Smoking Status Former Smoker Briseida Welchtzer [facility], [facility] & [place] 06/01/2022 10:45:54 Do You Have An Advance Directive? No [email or web address] Information not available 06/13/2022 Are You Blind Or Do You Have Difficulty Seeing? No [email or web address] Information not available 12/02/2022 What Is Your [...] 12/12/2022 When Did You Quit Smoking? 16+yearssince lastcigarette Information not available 12/12/2022 Have You Recently Or Are You Planning To Travel To An Area With Zika Virus? No Information not available 12/12/2022 In General, Would You Say Your Health Is Very Good [email or web address] Information not available 06/13/2022 How Would You Describe The Condition Of Your Mouth And Teeth including False Teeth Or Dentures? Fair [email or web address] Information not available 06/12/2023 In The Past 7 Days, How Many Servings Of Fruits And Vegetables Did You Typically Eat Each Day? (1 Serving = 1 Cup Of Fresh Vegetables, 1 2 Cup Of Cooked Vegetables, Or 1 Medium Piece Of Fruit. 1 Cup = Size Of A Baseball.) 1-2 Servings Per Day [email or web address] Information not available 06/12/2023 In The Past 7 Days, How Many Servings Of High Fiber Or Whole Grain Foods Did You Typically Eat Each Day? (1 Serving = 1 Slice Of 100% Whole Wheat Bread, 1 Cup Of Whole-grain Or High-fiber Xxphl-xy-cgc Cereal, 1 2 Cup Of Cooked Cereal Such As Oatmeal, Or 1 2 Cup Of Cooked Brown Rice Or Whole Wheat Pasta.) 1-2 Servings Per Day [email or web address] Information not available 06/12/2023 In The Past 7 Days, How Many Servings Of Fried Or High-fat Foods Did You Typically Eat Each Day? (Examples Include Fried Chicken, Fried Fish, [place], [place], Potato Chips, [place] Chips, Doughnuts, Creamy Salad Dressings, And Foods Made With Whole Milk, Cream, Cheese, Or Mayonnaise.) 1-2 Servings Per Day [email or web address] Information not available 06/12/2023 In The Past 7 Days, How Many Sugar-sweetened (not Diet) Beverages Did You Typically Consume Each Day 0 Drinks Per Day [email or web address] Information not available 06/12/2023 Each Night, How Many Hours Of Sleep Do You Usually Get? 6-7 Hours [email or web address] Information not available 06/13/2022 Do You Snore Or Has Anyone Told You That You Snore? Yes [email or web address] Information not available 06/13/2022 In The Past 7 Days, How Often Have You Busy Sleepy During The Daytime? Usually [email or web address] Information not available 06/13/2022 Do You Have Chronic Pain? Yes [email or web address] Information not available 06/13/2022 If Yes, Location Of Pain Back, Legs [email or web address] Information not available 06/12/2023 In The Past 7 Days, How Would You Rate Your Pain? Mild Pain(1-3) [email or web address] Information not available 06/13/2022 Are You In A Pain Management Program? No [email or web address] Information not available 06/13/2022 Do You Take Opioids For Your Pain? No [email or web address] Information not available 06/12/2023 How Often Is Stress A Problem For You In Handling Such Things As: Your Health, Your Finances, Your Family And Social Relationships, Your Work? Sometimes [email or web address] Information not available 06/12/2023 How Often Do You Get The Social And Emotional Support You Need: Usually [email or web address] Information no t available 06/13/2022 In The Past 7 Days, Did You Need Help From Others To Take Care Of Things Such As Laundry And Housekeep- Ing, Banking, Shopping, Using The Telephone, Food Preparation, Transportation, Or Taking Your Own Medications? No [email or web address] Information not available 06/13/2022 Do You Live Alone? No [email or web address] Information not available 06/13/2022 Does Your Home Have Any Fall Risks (un-level Floors, Unfastened Rugs, Poor Lighting, Etc)? No Information not available 06/13/2022 What Was The [...] Are You Passively Exposed To Smoke? No [email or web address] Information no t available 12/02/2022 How Much Tobacco Do You Smoke? 1 PPD Information not available 01/11/2024 Has Tobacco Cessation Counseling Been Provided? No Information not available 12/12/2022 How Many Years Have You Smoked Tobacco? 31 [email or web address] Information not available 06/13/2022 Do You Have [...] is your level of alcohol consumption? Occasional [email or web address] Information not available 12/02/2022 Do you or [...] 12/12/2022 What is your exercise level? Occasional Information not available 12/02/2022 Mental Status Question Answer Note LastModified by Organizat ion Details LastModified Time Do you feel stressed (tense, restless, nervous, or anxious, or unable to sleep at night)? [id number] [email or web address] Information not available 06/13/2022 Do you have [...] completed Bess [place]ullen null, [place] [facility] & [place] 08/16/2023 13:23:51 Influenza, high-dose, quadrivalent, PF 0 completed Bess [place] [facility] & [place] 08/16/2023 13:23:51 Influenza, high-dose, quadrivalent, PF 1 completed Bess [place] [facility] & [place] 08/16/2023 13:23:51 COVID-19, mRNA, LNP-S, PF, 100 mcg/0.5mL dose or 50 mcg/0.25mL dose 1 completed Bess [place] [facility] [place] [facility] [place] 08/16/2023 13:23:51 COVID-19, mRNA, LNP-S, PF, 100 mcg/0.5mL dose or 50 mcg/0.25mL dose 1 completed Bess [place] null[place] [facility] & [place] 08/16/2023 13:23:51 COVID-19, mRNA, LNP-S, PF, 100 mcg/0.5mL dose or 50 mcg/0.25mL dose 0 completed Bess Cullen [place] [facility] [place] [facility] [place] 08/16/2023 13:23:51 Tdap 6 completed Bess [place] [facility] [place] [facility] [place] 08/16/2023 13:23:51 Influenza, high-dose, trivalent, PF 8 completed Bess [place] [facility] [place] [facility] [place] 08/16/2023 13:23:51 Influenza, high-dose, trivalent, PF 7 completed Bess [place] [facility] [place] [facility] [place] 08/16/2023 13:23:51 Hep A, adult 8 completed Bess [place] [facility] [place] [facility] [place] 08/16/2023 13:23:51 Influenza, adjuvanted, quadrivalent, PF 3 completed Bess [place] [facility] [place] [facility] [place] 08/16/2023 13:23:51 pneumococcal polysaccharide PPV23 3 completed Bess [place] [facility] [place] [facility] [place] 08/16/2023 13:23:51 Influenza, adjuvanted, trivalent, PF 4 completed Rosalva Cazares MD [address] [facility], [place], [address], [place] [facility] [place] [facility] [place] 12/28/2023 12:54:14 RSV, bivalent, protein subunit RSVpreF, diluent reconstituted, 0.5 mL, PF 4 completed Bess [place]ullen [place] [facility] [place] [facility] [place] 04/25/2024 13:11:01 COVID-19, mRNA, LNP-S, PF, jose-sucrose, 30 mcg/0.3 mL 4 completed Bess Cullen [place] [facility] [place] [facility] [place] 04/25/2024 13:11:01 Past Encounters Encounter ID Performer Location Encounter Start Date Encounter Closed Date Diagnosis/Indication Diagnosis SNOMED-CT Code Diagnosis ICD10 Code Diagnosis Note [id number] [facility] [address] [place] [address] 07/25/2024 11:00:21 07/25/2024 11:43:35 Persistent cough 573550910 R05.3 [id number] JOHN GARCIA PA-C [facility] [address] [place] [address] 08/08/2024 10:38:18 08/08/2024 11:21:28 Pain of left hip joint 6299046797 56729 M25.552 - I have reviewed the left hip x-ray, which revealed mild degenerati ve joint disease. Lumbar spondylosis 25533 0009 M47.816 - The patient is 1 [...] pain. Spinal gene nosis of lumbar region 85588942 M99.53 M48.061 - The previously (01/24/24) performed lumbar epidural was successful in decreasing radicular low back pain by greater than 50%. Degenerati on of lumbar intervertebral disc 68591448 M51.369 Lumbar radiculopathy 128 629176 M54.16 - I have reviewed the lumbar [...] batool). Trochanter ic bursitis of left hip 4830677491 18842 M70.62 - The patient is S/P (04/03/24) left GTB injection, which was successful (greater than 50% pain relief). Lumbago with sciatica 20 9448875 M54.40 - Refill Diclofenac 75 mg Q12 hours prn- The patient recently followed up with cardiology , whom reportedly recommende d that the patient continue Diclofenac rather than Celecoxib. Radicular pain 52107868 M54.10 - Refill Gabapentin 300 mg Q8 hours Health Concerns Section Related Observation LastModified by Organization Detai ls LastModified Time None Recorded Concern Status LastModified by Organization Details LastModified Time None Recorded Payers Encounter Date Sequence Insurance Name Policy Number Policy Baugh Covered Member ID Baugh Member ID Guarantor Name 08/08/2024 1 [place] [employer] [place] [employer] (MEDICARE REPLACEMENT HMO) [id number] Nash Galeas [id number] Nash Galeas Notes Date Note Type Note Provider Name and Address Organization Details Recorded Time 08/08/2024 text/html Mr. Galeas was referred by [...] higher (6 or more). JOHN GARCIA PA-C [address], [place], [address], [place] - [facility] [place] [facility] [place] 08/11/2024 20:23:47
--- OUTSIDE RECORDS SUMMARY | 2024-09-09 11:20 | XMS_ITS | Encounter Summary ---
Author Organization [employer] ([place], [place], [place], [place]) Address [address] [place] [address] Care Team Providers Care Director Of Knowledge Management Name Role Phone Unavailable Primary Care Provider Unavailabl e Encounter Details Date Type Department Care Team (Late st Contact Info) Description 06/15/2018 Transcribed Document [facility] [place] [address] [place] [address] ProviderCarolina MD [address] [place] [address] Social History Tobacco Use Types Packs/Day Years Used Date Smoking Tobacco: Never Assessed Sex and Gender Information Value Date Recorded Sex Assigned at Not on file Legal Sex Male 6:30 PM CDT Gender Identity Not on file Sexual Orientation Not on file documented as of this encounter Miscellaneous Notes * Cerner Conversion Note - Carolina Mancera MD - 06/15/2018 11:55 AM CDT [facility] [place] [address] PIZARRO NASH Gail :1945 Visit Time:06/15/2018 Your Visit Summary Your Care Team Admitting Physician - ADRIANO GOODEN MD Attending Physician - ADRIANO GOODEN MD Primary Care Physician - ANTON BARRETT (REF), -MED Referring Physician - ADRIANO GOODEN MD Discharge Vitals Temperature 36.6 ??C Heart Rate (Monitored) 62 Respiratory Rate 17 Blood Pressure 135/71 What to do next Instructions From Your Care Team Diet after Discharge: Resume usual diet as tolerated, Activity after Discharge: , Rest and relax today, No strenuous activity Lifting Restrictions: see post radial sheet for activity restrictions Driving after Discharge: Do not drive for 24 hours May Return to Work/School: Showering/Bathing: May shower in 24 hours, No tub bathing, soaking or swimming for 3-5 days Notify Provider of: Monitor site for bleeding. If bleeding occurs, apply manual pressure and call 911 Wound/Incision Care after Discharge: Remove dressing in 24 hours Medical Equipment for Home Use: Home Health Services: Community Services: Follow-Up Appointments Follow Up with MARY ROBB When 07/02/2018 12:45 PM EDT Comments Follow-up as instructed Where: [address] [place] [address] [place] [address] [facility] (1) Medications What How Much When Instructions Next Dose Unchanged aspirin 81 Milligram(s) Oral At Bedtime 06-15-18 Unchanged hydroCHLOROthiazide 25 Milligram(s) Oral Every Day 06-15-18 Unchanged lisinopril 20 Milligram(s) Oral Two Times A Day 06-16-18 Unchanged metoprolol (Metoprolol Succinate ER) 25 Milligram(s) Oral Every Day 06-15-18 Unchanged simvastatin (Zocor) 20 Milligram(s) Oral At Bedtime 06-15-18 Take your medications faithfully. Do NOT skip medication. Do NOT stop taking medications without the direction of a physician. Carry a list of your medications with you at all times, and take this medication list with you to your first follow up visit. Report any side effects. Avoid herbal remedies unless discussed with your physician. As part of your treatment plan, your physician may have prescribed a limited course of a controlled substance. This medication may be given to help people with moderate or severe pain or for other medical conditions, but there are risks involved with treatment. Common side effects may include nausea, constipation, drowsiness, sweating, itching, dry mouth, and rash. More serious side effects may include cognitive and motor impairment, like problems with thinking, concentrating, alertness, and movement (e.g. slowed reflexes), and driving and operating heavy machinery can be dangerous. It is important for you to talk to your physician if you have these side effects or questions. These controlled substances can produce physical dependence and be habit-forming if taken for an extended period of time, which means that the body has gotten used to them and may experience withdrawal symptoms if they are abruptly stopped. Withdrawal symptoms can include runny nose, sweating, goose bumps, diarrhea, abdominal cramping, rapid heartbeat, difficulty sleeping, and nervousness. Please dispose of unused and medications per your retail pharmacy guidance. Allergies No Known Allergies Immunizations This Visit No Immunizations Found Education Materials Angiogram, Care After Refer to this sheet [...] catheter insertion site that usually fades within 1???2 weeks. ??? Blood collecting in the tissue (hematoma) that may be painful to the touch. It should usually decrease in size and tenderness within 1???2 weeks. Follow these instructions at home: ??? Take medicines only as directed by your health care provider. ??? You may shower 24???48 hours after the procedure or as directed [...] 09/08/2005 Document Revised: 07/28/2016 Document Reviewed: 07/24/2013 Spotjournal Interactive Patient Education ?? 2017 [employer] Inc. Radial Site Care Introduction Refer to [...] the radial site that usually fades within 1???2 weeks. ??? Blood collecting in the tissue (hematoma) that may be painful to the touch. It should usually decrease in size and tenderness within 1???2 weeks. Follow these instructions at home: ??? Take medicines only as directed by your health care provider. ??? You may shower 24???48 hours after the procedure or as directed [...] 03/25/2011 Document Revised: 07/28/2016 Document Reviewed: 09/08/2014 ?? 2017 Elsevier Moderate Conscious Sedation, Adult, Care [...] you are awake and alert. ??? Take ajbf-tbe-hkxnjji and prescription medicines only as told by [...] Document Reviewed: 06/11/2016 Elsevier Interactive Patient Education ?? 2017 [employer] Inc. Emergency Awareness and Preventative Care STROKE is an EMERGENCY Every Minute Counts Act FAST and Check for these signs: FACE Does the face look uneven? ARM Does one arm drift down? SPEECH Does their speech sound strange? TIME Call at any sign of stroke Stroke Risk Factors Atrial Fibrillation (irregular heartbeat) Diabetes Family history of stroke Heart Disease Heavy alcohol use High Blood Pressure High Cholesterol Physical inactivity and obesity Smoking Cigarette Smoking The facts are clear, cigarette smoking will shorten your life. Smoking can cause many illnesses along the way. As a healthcare provider, we recommend that you stop smoking. Assistance with quitting is available by contacting 6-270-MAJM-NOW. This is a free resource providing counseling, support, and referral. Or you may contact your personal physician. [place] Suicide Prevention Lifeline: The National Suicide Prevention Lifeline is a national network of local crisis centers that provides free and confidential emotional support to people in suicidal crisis or emotional distress 24 hours a day, 7 days a week. Don't Wait! Stop a Heart Attack Before it Starts What is a heart attack? A heart attack is damage or to a part of the heart from severely decreased or lack of blood flow to the heart. Over time, arteries can become narrow from the buildup of fat and cholesterol, which is called plaque. The plaque can rupture causing a blood clot to form. When the blood clot forms, the artery can become severely narrowed or completely blocked, causing a heart attack. Heart attack is the leading cause of in the [place]. 85% of muscle damage occurs within the first 2 hours. Delay in the recognition of heart attack symptoms increases the chances of . Know the early symptoms of a heart attack: Nausea Feeling of fullness in chest Jaw Pain Pain that travels down one or both arms Fatigue/being tired Anxiety Back Pain Chest pressure, squeezing, or discomfort Shortness of breath Sweating, or a cold sweat Feeling of impending doom There are unusual signs of a heart attack, too! Women, the elderly, and diabetics may present with atypical symptoms: Fainting/dizziness Weakness Confusion Risk Factors for a Heart Attack Some heart disease risk factors, such as age and family history, cannot be changed. Others, like smoking and lack of exercise, can be changed. Smoking High Cholesterol High Blood Pressure Family History Obesity Age Gender (Males are at higher risk) Lack of Exercise Diabetes Diet Stress Excessive Alcohol Intake If you or someone you know is experiencing the signs and symptoms of a heart attack, DON???T DELAY. Call immediately and seek help. If someone collapses, perform CPR! Do not attempt to drive if you are having symptoms of heart attack. Hands-Only CPR Why Hands-Only CPR? Hands-Only CPR has been shown to be as effective as conventional CPR for cardiac arrests that occur outside of a hospital. Survival depends on immediately receiving CPR from someone nearby. How do you perform Hands-Only CPR? There are two easy steps: Call if you see a teen or adult collapse Push hard and fast in the center of the chest at a beat of 100 beats per minute. Save a life! 4 WAYS TO GET AHEAD OF SEPSIS SEPSIS is a MEDICAL EMERGENCY. Time matters! Infections put you and your family at risk for a life-threatening condition called sepsis. Sepsis is the body's extreme response to an infection. It is life-threatening, and without timely treatment, sepsis can rapidly lead to tissue damage, organ failure, and . Sepsis happens when an infection you already have-in your skin, lungs, urinary tract or somewhere else-triggers a chain reaction throughout your body. 1 PREVENT INFECTIONS Take good care of chronic conditions. Talk to your doctor about getting the recommended vaccines. 2 PRACTICE GOOD HYGIENE Wash your hands frequently. Keep cuts or open sores clean and covered until they are healed. 3 KNOW THE SYMPTOMS Confusion or disorientation Shortness of breath High heart rate Fever, shivering, or feeling very cold Extreme pain or discomfort Clammy or sweaty skin 4 ACT FAST Get medical care IMMEDIATELY if you suspect sepsis or if you have an infection that is not getting better or is getting worse. To learn more about sepsis and how to prevent infections, visit www.cdc.gov/sepsis. Patient Portal Reminder: Be sure to sign up for the [facility] patient portal, which gives you 26/09 access to your medical information ??? including these discharge instructions ??? using your computer, smartphone, or tablet. Just go to [employer]SongToYou to get started. Questions? Call . Test Results Laboratory or Other Results This Visit (last charted value for your 06/15/2018 visit) Hematology 06/15/18 08:44:00 Platelet Count: 201 K/uL -- Normal range between ( 163 and 369 ) Patient Name:NASH PIZARRO I have received and understand this information and was given the opportunity to ask questions. Patient/Lithoduplicator Operator Name: Patient/Lithoduplicator Operator Signature: Relationship to Patient: Clinician/Hospital Lithoduplicator Operator Signature: Date: Electronically signed by Elsy Taylor Conversion Food And Beverage Order Clerk Catherine at 06/23/2022 7:54 AM CDT documented in this encounter Plan of Treatment Not on file documented as of this encounter Visit Diagnoses Not on filedocumented in this encounter
--- OUTSIDE RECORDS SUMMARY | 2024-09-09 11:20 | XMS_ITS | Encounter Summary ---
Author Organization [employer] ([place], [place], [place], [place]) Address [address] [place] [address] Care Team Providers Care Community Product Specialist Name Role Phone Unavailable Primary Care Provider Unavailabl e Encounter Details Date Type Department Care Team (Late st Contact Info) Description 06/15/2018 Transcribed Document [facility] [place] Medicine [address] [place] [address] ProviderCarolina MD [address] [place], [place] [id number] Social History Tobacco Use Types Packs/Day Years Used Date Smoking Tobacco: Never Assessed Sex and Gender Information Value Date Recorded Sex Assigned at Not on file Legal Sex Male 6:30 PM CDT Gender Identity Not on file Sexual Orientation Not on file documented as of this encounter Miscellaneous Notes * Cerner Conversion Note - Historical ProviderMD - 06/15/2018 10:28 AM CDT Event Note Entered On: 06/15/2018 11:03 EDT Performed On: 06/15/2018 10:28 EDT by Liz Dutton, RICHA Event Note Description of Event : 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 Pt placed on monitor, call luther within reach, family at BS. Liz Dutton, RN - 06/15/2018 11:02 EDT documented in this encounter Plan of Treatment Not on file documented as of this encounter Visit Diagnoses Not on filedocumented in this encounter
== END 2024-09-09 23:59 | disposition home or self-care (01) ==
LOC: LAB.DROPOF 10:53
PROVIDERS: PCP Internal Medicine Pulmonary Disease; Visit Provider Internal Medicine Pulmonary Disease
DX: R06.09 Other forms of dyspnea (principal)
CPT/HCPCS: 87070; 87077; 87186; 87205

== ENCOUNTER 2024-10-18 07:08 | Outpatient (CLI) | payer MEDICARE, SELFPAY ==
--- OUTSIDE RECORDS SUMMARY | 2024-10-18 07:13 | XMS_ITS | Encounter Summary ---
Author Organization [employer] ([place], [place], [place], [place]) Address [address] [place] [address] Care Team Providers Care Hired Hand Name Role Phone Unavailable Primary Care Provider Unavailabl e Encounter Details Date Type Department Care Team (Late st Contact Info) Description 06/15/2018 Transcribed Document [facility] [place] Family Medicine [facility] [place] [address] ProviderCarolina MD [address] [place] [address] Social History Tobacco Use Types [...] 09/08/2005 Document Revised: 07/28/2016 Document Reviewed: 07/24/2013 [employer] Interactive Patient Education ? 2017 [employer] Inc. Radial Site Care Introduction Refer to [...] you are awake and alert. ??? Take vifz-gtf-agpjyhh and prescription medicines only as told by [...] 06/11/2016 Elsevier Interactive Patient Education ? 2017 [employer] Pharm[employer] Inc. documented in this encounter Plan of Treatment Not on file documented as of this encounter Visit Diagnoses Not on filedocumented in this encounter
--- OUTSIDE RECORDS SUMMARY | 2024-10-18 07:13 | XMS_ITS | Encounter Summary ---
Author Organization [employer] ([place], [place], [place], [place]) Address [address] [place] [address] Care Team Providers Care Crop Specialist Name Role Phone Unavailable Primary Care Provider Unavailabl e Encounter Details Date Type Department Care Team (Late st Contact Info) Description 06/15/2018 Transcribed Document [facility] [place] [address] [place] [address] ProviderCarolina MD [address] [place], [place] [id number] Social History Tobacco Use Types Packs/Day Years [...] list: All Problems Hypertension / SNOMED CT 29412502 / Confirmed Hyperlipidemia / SNOMED CT 65571106 / Confirmed Hard of hearing / SNOMED CT 064440834 / Confirmed Angina / SNOMED CT 585398008 / Confirmed SOB (shortness of breath) / SNOMED CT 501693981 / Confirmed At risk for sleep apnea / IMO [id number] / Confirmed Resolved: Cataract / SNOMED CT 022553880 Histories No education data available. Social & Psychosocial Habits No Data Available Past Medical History: Active Hyperlipidemia (25447874) Hypertension (17122519) Family History: Entire family history is negative. [...] of motion, Normal strength. Integumentary: Warm, Dry, Garten. Neurologic: Alert, Oriented. Psychiatric: Cooperative. Review / [...] and written consent. Agree. Will procede with [facility] this AM as polanned. documented in this encounter Plan of Treatment Not on file documented as of this encounter Visit Diagnoses Not on filedocumented in this encounter
--- OUTSIDE RECORDS SUMMARY | 2024-10-18 07:13 | XMS_ITS | Encounter Summary ---
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
--- OUTSIDE RECORDS SUMMARY | 2024-10-18 07:13 | XMS_ITS | Encounter Summary ---
Author Organization [facility] Address [address] [place] [address] Care Team Providers Care Pouncer Name Role Phone Rosa Cazares MD Primary Care Provider [phone] Encounter Details Date Type Department Care Team (Late st Contact Info) Description 08/19/2024 Telephone [facility] [address] [place] [address] Mary Gaviria, COFFEE SHOP AIDE [address] [place] [address] Social History Tobacco Use Types Packs/Day Years Used Date Smoking Tobacco: Former Cigarettes 1 30 Passive Smoke Exposure: Past Smokeless Tobacco: Never Alcohol Use Standard Drinks/Week Comments Yes 0 (1 standard drink = 0.6 oz pur e alcohol) occ Sex and Gender Information Value Date Recorded Sex Assigned at Male 10/16/2024 9:00 AM EDT Legal Sex Male 10:05 AM EDT Gender Identity Not on file Sexual Orientation Straight 10/16/2024 9: 00 AM EDT documented as of this encounter Miscellaneous Notes * Telephone Encounter - Cornelia Whitmore MA - 08/19/2024 10:22 AM EDT PATIENT CALLED IN WANTING A NEW ORDER FOR A PAP MACHINE. PLEASE ADVISE. documented in this encounter Plan of Treatment Upcoming Encounters Date Type Department Care Team (Late st Contact Info) Description 10/23/2024 11:15 AM EDT Office Visit [facility] [address] [place] [address] Pebbles Oden MD [address] [place] [address] documented as of this encounter Visit Diagnoses Not on filedocumented in this encounter Care Teams Pouncer Relationship Specialty Start Date End Date Rosa Cazares MD PCP - General Family Medicine 02/22/23 documented as of this encounter
--- OUTSIDE RECORDS SUMMARY | 2024-10-18 07:13 | XMS_ITS | Clinical Summary ---
Author Organization [employer] ([place], [place], [place], [place]) Address [address] [place] [address] Care Team Providers Care Hydroelectric Plant Mechanical Engineer Name Role Phone Unavailable Primary Care Provider [...]
--- OUTSIDE RECORDS SUMMARY | 2024-10-18 07:13 | XMS_ITS | Encounter Summary ---
Author Organization [employer] ([place], [place], [place], [place]) Address [address] [place] [address] Care Team Providers Care Oilfield Plant And Field Operator Name Role Phone Unavailable Primary Care Provider Unavailabl e Encounter Details Date Type Department Care Team (Late st Contact Info) Description 06/15/2018 Transcribed Document [facility] [place] [address] [place] [address] ProviderCarolina MD [address] [place] [address] Social History Tobacco Use Types [...]
--- OUTSIDE RECORDS SUMMARY | 2024-10-18 07:13 | XMS_ITS | Encounter Summary ---
Author Organization [employer] ([place], [place], [place], [place]) Address [address] [place] [address] Care Team Providers Care Aquatic Centre Manager Name Role Phone Unavailable Primary Care Provider Unavailabl e Encounter Details Date Type Department Care Team (Late st Contact Info) Description 06/15/2018 Transcribed Document [facility] [place] [address] [place] [address] ProviderCarolina MD [address] [place] [address] Social History Tobacco Use Types [...] Mancera MD - 06/15/2018 11:55 AM CDT [facility] [place] [address] PIZARRO NASH Gail :1945 Visit [...] instructed Where: [address] [place] [address] [place] [address] [facility] (1) Medications What How Much When Instructions [...] 09/08/2005 Document Revised: 07/28/2016 Document Reviewed: 07/24/2013 [employer] Interactive Patient Education ?? 2017 [employer]. Radial Site Care Introduction Refer to [...] you are awake and alert. ??? Take ojsu-owu-qypuxjh and prescription medicines only as told by [...] 06/11/2016 Elsevier Interactive Patient Education ?? 2017 [employer] Inc. Emergency Awareness and Preventative Care STROKE [...] Assistance with quitting is available by contacting 8-767-NTTT-NOW. This is a free resource providing counseling, support, and referral. Or you may contact your personal physician. [employer] Suicide Prevention Lifeline: The National Suicide Prevention [...] Be sure to sign up for the [facility] patient portal, which gives you 26/09 access to your medical information ??? including these discharge instructions ??? using your computer, smartphone, or tablet. Just go to [employer] to get started. Questions? Call . Test Results Laboratory or Other Results This Visit (last charted value for your 06/15/2018 visit) Hematology 06/15/18 08:44:00 Platelet Count: 201 K/uL -- Normal range between ( 163 and 369 ) Patient Name:NASH PIZARRO I have received and understand this information and was given the opportunity to ask questions. Patient/Order Processor Name: Patient/Order Processor Signature: Relationship to Patient: Clinician/Hospital Order Processor Signature: Date: documented in this encounter Plan of Treatment Not on file documented as of this encounter Visit Diagnoses Not on filedocumented in this encounter
--- OUTSIDE RECORDS SUMMARY | 2024-10-18 07:13 | XMS_ITS | Encounter Summary ---
Author Organization [employer] ([place], [place], [place], [place]) Address [address] [place] [address] Care Team Providers Care Shadowgraph Scale Operator Name Role Phone Unavailable Primary Care Provider Unavailabl e Encounter Details Date Type Department Care Team (Late st Contact Info) Description 06/15/2018 Transcribed Document [facility] [place] [address] [place] [address] ProviderCarolina MD [address] [place] [address] Social History Tobacco Use Types [...] Source : Stated Height Entry Format : [place]rick Height, Feet : 5 ft(Converted to: 152 cm, 60 Inch) Height, Inches : 10 Inch(Converted to: 0 ft 10 Inch, 25.40 cm) Clinical Height : 177.8 cm Weight Source : Standing scale Weight Entry Format : Warrick Clinical Dosing Weight : 97.73 kg Weight, Pounds : 215 lb Body Surface Area (BSA) : 2.15 m2 Body Mass Index : 30.9 kg/m2 (HI) [place] Body Weight : 72 kg Liz Dutton [...] [place]aleas Support Person/Pt Rep Contact Information : [phone] Want Family/Rep/Phys Notified of Admit : No Emergency Contact #1 : Lauren Galeas Emergency Contact #1 Emergency Contact #1 Relationship : Emergency Contact #2 : NA Emergency Contact #2 Phone Number : NA Emergency Contact #2 Relationship : NA Information Obtained From : Patient Primary Language : Latvian Preferred Communication Mode : Verbal Communication Barrier [...] Scale Risk Level : 0-24 Low Risk [place] Fall Interventions : Adequate lighting, Bed in [...]
--- OUTSIDE RECORDS SUMMARY | 2024-10-18 07:13 | XMS_ITS | Referral Summary ---
Author Organization [employer] ([place], [place], [place], [place]) Address [address] [place] [address] Care Team Providers Care Oracle Iam Consultant Name Role Phone Unavailable Primary Care Provider [...]
--- OUTSIDE RECORDS SUMMARY | 2024-10-18 07:13 | XMS_ITS | Clinical Summary ---
Author Organization [facility] Address [address] [place] [address] Care Team Providers Care Soaker Name Role Phone Rosa Cazares MD Primary Care Provider [phone] Allergies No known active allergies Medications finasteride (PROSCAR) 5 MG tablet finasteride 5 mg tablet Take 1 tablet every day by oral route. Active hydroCHLOROth iazide (HYDRODIURIL) 25 MG tablet hydrochlorothiazide 25 mg tablet TAKE ONE TABLET BY MOUTH EVERY MORNING Activ e lisinopril (PRINIVIL,ZES TRIL) 20 MG tablet lisinopril 20 mg tablet TAKE 1 TABLET ONCE DAILY Active diclofenac (VOLTAREN) 75 MG EC tablet Take 1 tablet by mouth Every 12 (Twelve) Hours. 07/29/19 24 Active atorvastatin (LIPITOR) 40 MG tablet TAKE ONE TABLET BY MOUTH ONCE DAILY 90 tablet 3 02/13/20 24 Active calcipotriene (DOVONOX) 0.005 % ointment Apply a thin layer to affected areas two times daily when flared. Active clobetasol (TEMOVATE) 0.05 % ointment Apply a thin layer to affected areas twice daily for 2 weeks. Stop for 1 week. Repeat as needed. Active gabapentin (NEURONTIN) 300 MG capsule 1 capsule 2 (Two) Times a Day. Active silodosin (RAPAFLO) 8 MG capsule capsule Take 1 capsule by mouth Daily. Active tamsulosin (FLOMAX) 0.4 MG capsule 24 hr capsule Alternating days with proscar Active Encounters Date Type Department Care Team Description 08/19/2024 Telephone [facility] [address] [place] [phone] Mary Gaviria APRN from Last 3 Months Family History Medical History Relation Name Comments Hypertension Brother Breast cancer Mother Relation Name Status Comments Brother Alive Father Mother Alive Social History Tobacco Use Types Packs/Day Years Used Date Smoking Tobacco: Former Cigarettes 1 30 Passive Smoke Exposure: Past Smokeless Tobacco: Never Tobacco Cessation:Counseling Given: Not Answered Alcohol Use Standard Drinks/Week Comments Yes 0 (1 standard drink = 0.6 oz pur e alcohol) occ Sex and Gender Information Value Date Recorded Sex Assigned at Male 10/16/2024 9:00 AM EDT Legal Sex Male 10:05 AM EDT Gender Identity Not on file Sexual Orientation Straight 10/16/2024 9: 00 AM EDT Last Filed Vital Signs Vital Sign Reading Time Taken Comments Blood Pressure 138/70 02/19/2024 10:11 AM EST Pulse 74 02/19/2024 10:11 AM EST Temperature - - Respiratory Rate - - Oxygen Saturation 97% 02/19/2024 10:11 AM EST Inhaled Oxygen Concentration - - Weight 94.3 kg (208 lb) 02/19/2024 10:11 AM EST Height 177.8 cm (5' 10 ) 02/19/2024 10:11 AM EST Body Mass Index 29.84 02/19/2024 10:11 AM EST Plan of Treatment Upcoming Encounters Date Type Department Care Team (Late st Contact Info) Description 10/23/2024 11:15 AM EDT Office Visit [facility] [address] [place] [phone] Pebbles Oden MD [address] [place] [address] Health Maintenance Due Date Last Done Comments LIPID PANEL 1945 ZOSTER VACCINE (1 of 2) 1997 RSV Vaccine - Adults (1 - 1- dose 75+ series) 2022 ANNUAL WELLNESS VISIT 08/22/2022 HEPATITIS C SCREENING 08/22/2022 Pneumococcal Vaccine 50+ (2 of 2 - PCV) 06/14/2023 06/13/2022 COVID-19 Vaccine ( 2023-2 5 season) 2023 01/26/2021, 03/27/2020, 02/26/2020 INFLUENZA VACCINE 12/04/2024 12/28/2023, , 12/29/2021, Additional history exists TDAP/TD VACCINES (2 - Td or Tdap) 04/15/2025 016 COLONOSCOPY Discontinued 04/28/2020, 03/2014, 2009 COLORECTAL CANCER SCREENING Discontinued COLOGUARD Discontinued COLON CANCER SCREENING 5 YEA R SIGMOIDOSCOPY Discontinued CT COLONOGRAPHY Discontinued FECAL OCCULT BLOOD TEST Discontinued FIT Testing (1 year) Discontinued Insurance [employer] MEDICARE ADVANT[employer] HMO Care Teams Soaker Relationship Specialty Start Date End Date Rosa Cazares MD PCP - General Family Medicine 02/22/23
--- NOTE | 2024-10-18 08:13 | CT_ITS ---
FINAL REPORT CLINICAL HISTORY: 6mth F/U CT chest April 2024 6 mm new pulmonary nodule. Plan: Follow-up CT chest in 6 months for October 2024 FINDINGS: CT CHEST without contrast COMPARISON: None at this facility . TECHNIQUE: Axial CT without contrast This study was performed with techniques to keep radiation doses as low as reasonably achievable, (ALARA). Individualized dose reduction techniques using automated exposure control or adjustment of mA and/or kV according to the patient''s size were employed. FINDINGS: Mild patchy airspace opacities are seen within the left lower lobe and lingula. These are somewhat nodular exam for duration and could exclude an underlying nodule. Fine nodular densities are seen clustered in the lateral portion of the left lower lobe. A few minimal nodular densities in the right middle lobe are noted along the minor fissure.. No pleural or pericardial effusion is seen . No adenopathy or mass lesion is present . IMPRESSION: 1. Findings suggestive of bronchopneumonia and bronchiolitis. Lung disease could obscure underlying nodule. Recommend continued follow-up in 3-6 months. This study was performed using automated techniques to achieve radiation exposure as low as reasonably achievable Authenticated and ERN
[2024-10-18] MEDS: ALBUTEROL 0.083% 2.5 MG/3 ML NEB IH (13:57)
== END 2024-10-18 23:59 | disposition home or self-care (01) ==
PROVIDERS: PCP Family Medicine; Visit Provider Internal Medicine Pulmonary Disease
DX: R94.2 Abnormal results of pulmonary function studies (principal); R91.8 Other nonspecific abnormal finding of lung field; R06.09 Other forms of dyspnea; R06.02 Shortness of breath
CPT/HCPCS: 71250; 94060; 94618; 94726; 94729

== ENCOUNTER 2024-10-24 13:16 | Outpatient (CLI) | payer MEDICARE, SELFPAY ==
--- OUTSIDE RECORDS SUMMARY | 2024-10-23 11:15 | XMS_ITS | Encounter Summary ---
Author Organization [facility] Address [address] [place] [address] Care Team Providers Care Slate Cutter Name Role Phone Rosa Cazares MD Primary Care Provider [phone] Reason for Referral * Diagnostic Imaging (Routine) - Pending Review Specialty Diagnoses / Procedures Referred By Contac t Referred To Contact Diagnoses Nonrheumatic aortic valve stenosis Procedures Adult Transthoracic Echo Complete W/ Cont if Necessary Per Protocol OR ECHO TTHRC R-T 2D W/WOM-MODE COMPL SPEC&COLR D OR ECHO TRANSTHORC R-T 2D W/WO M-MODE REC F-UP/LMTD Shyla Chahal APRN [address] [place] [address] Phone: tel: fax: [address] [phone] Phone: tel: fax: Referral ID Status Reason [...] Description 10/23/2024 11:15 AM EDT Office Visit [address] [place] [phone] Pebbles Oden MD [...] well on current therapy. DL is in [facility]. Subjective History of Present Illness The patient presents for chronic cough, hypertension, and amyloidosis. He has been experiencing a chronic cough for the past 4 months, which occasionally produces phlegm.His primary care physician referred him to a mutuel machine operator in [place], where he underwent pulmonary function tests last week. He is scheduled to see the mutuel machine operator tomorrow morning. He also has an upcoming [...] HISTORY Marital Status: Occupations: Works at a [employer] FAMILY HISTORY - Mother: 96 years old, [...] - Recent pulmonary tests conducted; follow-up with mutuel machine operator to discuss results. - Potential link to [...] scheduled in 6 months. Patient or patient truck sales representative verbalized consent for the use of Ambient Listening during the visit with Pebbles Oden MD for chart documentation. 10/23/2024 18:42 EDT Follow Up Return in about 6 months (around 04/25/2025) for f/u with ECHO at this appt. Yue Oden MD Cardiology and Sleep [facility] 10/23/2024 Please note that this explicitly excludes time spent on other separate billable services such as performing procedures or test interpretation, when applicable. Please note that portions of this note were completed with a voice recognition program. documented in this encounter Plan of Treatment Upcoming Encounters Date Type Department Care Team (Late st Contact Info) Description 04/28/2025 10:30 AM EST Ancillary Procedure [facility] [place] [phone] 04/28/2025 11:30 AM EST Office Visit [facility] C[facility] [address] [place] [address] [place] [phone] [place] [address] Scheduled Orders Name Type Priority Associated Diagnoses [...] hypercholesterolemia documented in this encounter Care Teams Slate Cutter Relationship Specialty Start Date End Date Rosa Cazares MD PCP - General Family Medicine 02/22/23 documented as of this encounter
--- OUTSIDE RECORDS SUMMARY | 2024-10-24 13:38 | XMS_ITS | Clinical Summary ---
Author Organization [facility] Address [address] [place] [address] Care Team Providers Care Senior Analyst Developer Name Role Phone Rosa Cazares MD Primary Care Provider [phone] Allergies No known active allergies Medications finasteride [...] capsule 2 (Two) Times a Day. Active tamsulosin (FLOMAX) 0.4 MG capsule 24 hr capsule Alternating days with proscar Active chlorhexidine (PERIDEX) 0.12 % solution place 15 milliliters in the mouth by mucous membrane route 2 times per day after brushing teeth, swish in mouth for 30 seconds then spit out Active HYDROcodone-a cetaminophen (NORCO) 5-325 MG per tablet take 1 tablet by oral route every 6 hours as needed for pain Active pimecrolimus (ELIDEL) 1 % cream Apply topically to the appropriate area as directed See Admin Instructions. Apply to the affected areas twice daily 10/17/19 Active silodosin (RAPAFLO) 8 MG capsule capsule Take 1 capsule by mouth Daily. 2024 Disconti nued(*Th erapy complete d) Encounters Date Type Department Care Team Description 10/23/2024 11:15 AM EDT Office Visit [facility] [address] [place] [phone] Pebbles Oden MD Hypertension, essential (Primary Dx); Nonrheumatic aortic valve stenosis; Obstructive sleep apnea; Pure hypercholesterolemia 10/23/2024 Travel 08/19/2024 Telephone [facility] CARDIOLOGY [...] Mass Index 29.27 10/23/2024 11:08 AM EDT Plan of Treatment Upcoming Encounters Date Type Department Care Team (Late st Contact Info) Description 04/28/2025 10:30 AM EST Ancillary Procedure [facility] [address] [place] [phone] 04/28/2025 11:30 AM EST Office Visit [facility] [place] [phone] Pebbles Oden MD [address] [place] [address] Health Maintenance Due Date Last Done Comments LIPID PANEL 1945 ZOSTER VACCINE (1 of 2) 1997 RSV Vaccine - Adults (1 - 1- dose 75+ series) 2022 ANNUAL WELLNESS VISIT 08/22/2022 HEPATITIS C SCREENING 08/22/2022 Pneumococcal Vaccine 50+ (2 of 2 - PCV) 06/14/2023 06/13/2022 COVID-19 Vaccine (5 - 2023-2 5 season) 2024 02/19/2024, 01/26/2021, 03/27/2020, Additional history exists INFLUENZA VACCINE 12/04/2024 12/28/2023, , 12/29/2021, Additional history exists TDAP/TD VACCINES (2 - Td or Tdap) 04/15/2025 016 COLONOSCOPY Discontinued 04/28/2020, 03/2014, 2009 COLORECTAL CANCER SCREENING Discontinued COLOGUARD Discontinued COLON CANCER SCREENING 5 YEA R SIGMOIDOSCOPY Discontinued CT COLONOGRAPHY Discontinued FECAL OCCULT BLOOD TEST Discontinued FIT Testing (1 year) Discontinued Procedures Procedure Name Priority Date/Time Associated Diagnosis Comments SCANNED - PULMONARY RESULTS 10/18/2024 SCANNED - LABS 08/27/2024 from Last 3 Months Results * Pulmonary Results Scan (10/18/2024) us Pebbles Oden MD PFT ORDERABLES Final Result * LABS SCANNED (08/27/2024) Pebbles Oden MD LAB BLOOD ORDERABLES Final R esult from Last 3 Months Insurance [facility] MEDICARE ADVANTAGE HMO Care Teams Senior Analyst Developer Relationship Specialty Start Date End Date Rosa Cazares MD PCP - General Family Medicine 02/22/23
--- OUTSIDE RECORDS SUMMARY | 2024-10-24 13:38 | XMS_ITS | Encounter Summary ---
Author Organization [facility] Address [address] [place] [address] Care Team Providers Care Desizing Machine Operator Head End Name Role Phone Rosa Cazares MD Primary Care Provider [phone] Encounter Details Date Type Department Care Team (Latest Contact Info) Description 10/23/2024 Travel Social History Tobacco Use Types Packs/Day Years [...] AM EDT documented as of this encounter Plan of Treatment Upcoming Encounters Date Type Department Care Team (Late st Contact Info) Description 04/28/2025 10:30 AM EST Ancillary Procedure [facility] [address] [place] [phone] 04/28/2025 11:30 AM EST Office Visit [facility] [address] [place] [phone] Pebbles Oden MD [address] [place] [address] documented as of this encounter Visit Diagnoses Not on filedocumented in this encounter Care Teams Desizing Machine Operator Head End Relationship Specialty Start Date End Date Rosa Cazares MD PCP - General Family Medicine 02/22/23 documented as of this encounter
== END 2024-10-24 23:59 | disposition home or self-care (01) ==
LOC: LAB 13:17
PROVIDERS: PCP Family Medicine; Visit Provider Internal Medicine Pulmonary Disease
DX: J47.9 Bronchiectasis, uncomplicated (principal)
CPT/HCPCS: 87070; 87205

== ENCOUNTER 2024-11-13 12:19 | Outpatient (CLI) | payer MEDICARE, SELFPAY ==
--- OUTSIDE RECORDS SUMMARY | 2024-10-23 11:15 | XMS_ITS | Encounter Summary ---
Author Organization [facility] Address [address] [place] [address] Care Team Providers Care Cord Tire Builder Name Role Phone Rosa Cazares MD Primary Care Provider [phone] Reason for Referral * Diagnostic Imaging (Routine) - Pending Review Specialty Diagnoses / Procedures Referred By Contac t Referred To Contact Diagnoses Nonrheumatic aortic valve stenosis Procedures Adult Transthoracic Echo Complete W/ Cont if Necessary Per Protocol KS ECHO TTHRC R-T 2D W/WOM-MODE COMPL SPEC&COLR D KS ECHO TRANSTHORC R-T 2D W/WO M-MODE REC F-UP/LMTD hSyla Chahal APRN [address] [place] [address] Phone: tel: fax: [address] [address] Phone: tel: fax: Referral ID Status Reason Start Date Expiration Date V isits Requested Visits Authorized Pending Review 10/23/2024 01/22/2026 1 1 Reason for Visit * Reason Comments Sleep Apnea Pt states he is here today for 31-90 day follow up MIQUEL. He is doing well on current therapy. DL is in Epic. Encounter Details Date Type Department Care Team (Latest Contact Info) Description 10/23/2024 11:15 AM EDT Office Visit [address] [place] [phone] Pebbles Oden MD [address] [place] [address] Hypertension, essential (Primary Dx); Nonrheumatic aortic valve stenosis; Obstructive sleep apnea; Pure hypercholesterolemia Social History Tobacco Use Types Packs/Day Years Used Date Smoking Tobacco: Former Cigarettes 1 30 Passive Smoke Exposure: Past Smokeless Tobacco: Never Tobacco Cessation:Counseling Given: Yes Alcohol Use Standard Drinks/Week Comments Yes 0 (1 standard drink = 0.6 oz pur e alcohol) occ PHQ-2 Answer Date Recorded Patient Health Questionnaire-9 Score 0 10/22/2024 Sex and Gender Information Value Date Recorded Sex Assigned at Male 10/16/2024 9:00 AM EDT Legal Sex Male 10:05 AM EDT Gender Identity Not on file Sexual Orientation Straight 10/16/2024 9: 00 AM EDT documented as of this encounter Last Filed Vital Signs Vital Sign Reading Time Taken Comments Blood Pressure 130/70 10/23/2024 11:08 AM EDT Pulse 87 10/23/2024 11:08 AM EDT Temperature - - Respiratory Rate - - Oxygen Saturation 97% 10/23/2024 11:08 AM EDT Inhaled Oxygen Concentration - - Weight 92.5 kg (204 lb) 10/23/2024 11:08 AM EDT Height 177.8 cm (5' 10 ) 10/23/2024 11:08 AM EDT Body Mass Index 29.27 10/23/2024 11:08 AM EDT documented in this encounter Progress Notes * Pebbles Oden MD - 10/23/2024 11:15 AM EDT Images from the original note were not included. [facility] Provider Note Date: 10/23/2024 Name: Nash Galeas : 1945 PCP: Rosa Cazares MD Chief Complaint Patient presents with Sleep Apnea Pt states he is here today for 31-90 day follow up MIQEUL. He is doing well on current therapy. DL is in [facility]. Subjective History of Present Illness The patient presents for chronic cough, hypertension, and amyloidosis. He has been experiencing a chronic cough for the past 4 months, which occasionally produces phlegm.His primary care physician referred him to a report manager in [place], where he underwent pulmonary function tests last week. He is scheduled to see the report manager tomorrow morning. He also has an upcoming appointment with an ENT specialist on Monday. He was diagnosed with pulmonary hypertension by Dr. 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 This condition is being further investigated through tests. He was informed that his condition is progressive and incurable, but manageable with new medications. Blood pressure readings have been within the normal range, typically around 130/70, although occasionally recording readings in the 150s at home. He is currently taking lisinopril 20 mg twice daily and anticipates that his doctor may discontinue this medication due to his cough. He has been advisedto switch to losartan, which does not cause a cough. His last lab work was conducted on 12/2023. His PSA levels are monitored by his urologist and have been stable. SOCIAL HISTORY Marital Status: Occupations: Works at a [employer] FAMILY HISTORY - Mother: 96 years old, experiencing health problems. - Brother: Hospitalized for pancreatitis. Cardiac history 1. Heart catheterization 06/2018 mild luminal irregularities 2. Aortic stenosis-mild 3. MIQUEL on CPAP titration study 12/19/2018 4. Hypertension 5. Hypercholesterolemia No Known Allergies Current Outpatient Medications: atorvastatin (LIPITOR) 40 MG tablet, TAKE ONE TABLET BY MOUTH ONCE DAILY, Disp: 90 tablet, Rfl: 3 calcipotriene (DOVONOX) 0.005 % ointment, Apply a thin layer to affected areas two times daily whenflared., Disp: , Rfl: chlorhexidine (PERIDEX) 0.12 % solution, place 15 milliliters in the mouth by mucous membrane route2 times per day after brushing teeth, swish in mouth for 30 seconds then spit out, Disp: , Rfl: clobetasol (TEMOVATE) 0.05 % ointment, Apply a thin layer to affected areas twice daily for 2 weeks. Stop for 1 week. Repeat as needed., Disp: , Rfl: diclofenac (VOLTAREN) 75 MG EC tablet, Take 1 tablet by mouth Every 12 (Twelve) Hours., Disp: , Rfl: finasteride (PROSCAR) 5 MG tablet, finasteride 5 mg tablet Take 1 tablet every day by oral route., Disp: , Rfl: gabapentin (NEURONTIN) 300 MG capsule, 1 capsule 2 (Two) Times a Day. (Patient taking differently: 1 capsule 3 (Three) Times a Day.), Disp: , Rfl: hydroCHLOROthiazide (HYDRODIURIL) 25 MG tablet, hydrochlorothiazide 25 mg tablet TAKE ONE TABLET BYMOUTH EVERY MORNING, Disp: , Rfl: HYDROcodone-acetaminophen (NORCO) 5-325 MG per tablet, take 1 tablet by oral route every 6 hours asneeded for pain, Disp: , Rfl: lisinopril (PRINIVIL,ZESTRIL) 20 MG tablet, lisinopril 20 mg tablet TAKE 1 TABLET ONCE DAILY (Patient taking differently: Take 1 tablet by mouth 2 (Two) Times a Day.), Disp: , Rfl: pimecrolimus (ELIDEL) 1 % cream, Apply topically to the appropriate area as directed See Admin Instructions. Apply to the affected areas twice daily, Disp: , Rfl: tamsulosin (FLOMAX) 0.4 MG capsule 24 hr capsule, Alternating days with proscar, Disp: , Rfl: Past Medical History: Diagnosis Date Back pain Diabetes mellitus Hypertension Sleep apnea AHI /50 REM Past Surgical History: Procedure Laterality Date CATARACT EXTRACTION DENTAL PROCEDURE EYELID RETRACTION REPAIR HEMORRHOIDECTOMY Family History Problem Relation Age of Onset Breast cancer Mother Hypertension Brother Social History Socioeconomic History Marital status: Tobacco Use Smoking status: Former Current packs/day: 1.00 Average packs/day: 1 pack/day for 30.0 years (30.0 ttl pk-yrs) Types: Cigarettes Passive exposure: Past Smokeless tobacco: Never Vaping Use Vaping status: Never Used Substance and Sexual Activity Alcohol use: Yes Comment: occ Drug use: Never Sexual activity: Defer Objective Vital Signs: BP 130/70 (BP Location: Right arm, Patient Position: Sitting, Cuff Size: Adult) Pulse 87 Ht 177.8 cm (70 ) Wt 92.5 kg (204 lb) SpO2 97% BMI 29.27 kg/m?? Estimated body mass index is 29.27 kg/m?? as calculated from the following: Height as of this encounter: 177.8 cm (70 ). Weight as of this encounter: 92.5 kg (204 lb). Physical Exam Constitutional: Appearance: Normal appearance. He is well-developed. HENT: Head: Normocephalic and atraumatic. Eyes: General: No scleral icterus. Pupils: Pupils are equal, round, and reactive to light. Cardiovascular: Rate and Rhythm: Normal rate and regular rhythm. Heart sounds: Normal heart sounds. No murmur heard. Pulmonary: Breath sounds: Normal breath sounds. No wheezing or rhonchi. Musculoskeletal: Right lower leg: No edema. Left lower leg: No edema. Skin: Capillary Refill: Capillary refill takes less than 2 seconds. Coloration: Skin is not cyanotic. Nails: There is no clubbing. Neurological: Mental Status: He is alert and oriented to person, place, and time. Motor: No weakness. Gait: Gait normal. Psychiatric: Mood and Affect: Mood normal. Behavior: Behavior is cooperative. Thought Content: Thought content normal. Results Labs - LDL: 47 mg/dL Imaging - Echocardiogram: 08/23/2023, Mild aortic stenosis Assessment and Plan ASSESSMENTS AND ORDERS Diagnoses and all orders for this visit: 1. Hypertension, essential (Primary) - CBC & Differential; Future - Comprehensive Metabolic Panel; Future - Lipid Panel; Future 2. Nonrheumatic aortic valve stenosis - Adult Transthoracic Echo Complete W/ Cont if Necessary Per Protocol; Future 3. Obstructive sleep apnea 4. Pure hypercholesterolemia Assessment & Plan 1. Hypertension: - Blood pressure readings typically around 130/70, occasionally reaching 150s at home. - Currently on lisinopril 20 mg twice a day. - Discussed the possibility of switching to losartan due to the chronic cough. - Will monitor blood pressure and report any significant changes. - New blood pressure guidelines suggest aiming for readings in the 120s. 2. Chronic Cough: - Chronic cough for about 4 months, sometimes productive. - Recent pulmonary tests conducted; follow-up with report manager to discuss results. - Potential link to lisinopril; may switch to losartan to alleviate cough. 3. Mild Aortic Stenosis: - Mild aortic stenosis noted on the last echocardiogram. - Follow-up echocardiogram to be scheduled in 6 months to monitor the condition. 4. Health Maintenance: - Due for lab work, including CBC, CMP, and lipid panel. - Order for these tests will be placed. Follow-up: Follow-up visit scheduled in 6 months. Patient or patient pharmacy sales representative verbalized consent for the use of Ambient Listening during the visit with Pebbles Oden MD for chart documentation. 10/23/2024 18:42 EDT Follow Up Return in about 6 months (around 04/25/2025) for f/u with ECHO at this appt. Yue Oden MD Cardiology and Sleep [facility] 10/23/2024 Please note that this explicitly excludes time spent on other separate billable services such as performing procedures or test interpretation, when applicable. Please note that portions of this note were completed with a voice recognition program. documented in this encounter Plan of Treatment Upcoming Encounters Date Type Department Care Team (Late st Contact Info) Description 04/28/2025 10:30 AM EST Ancillary Procedure [facility] [place] [phone] 04/28/2025 11:30 AM EST Office Visit [facility] CARDI[facility] [address] [place] [address] [place] [id number] [place] [address] Scheduled Orders Name Type Priority Associated Diagnoses Order Schedule CBC & Differential Lab Panel Routine Hypertension, essential Expected: 11/06/2024 (Approximate), Expires: 10/23/2025 Comprehensive Metabolic Panel Lab Routine Hypertension, essential Expected: 11/06/2024 (Approximate), Expires: 10/23/2025 Lipid Panel Lab Routine Hypertension, essential Expected: 11/06/2024 (Approximate), Expires: 10/23/2025 Adult Transthoracic Echo Complete W/ Cont if Necessary Per Protocol Echocardiography Routine Nonrheumatic aortic valve stenosis Expected: 04/21/2025, Expires: 10/23/2025 documented as of this encounter Visit Diagnoses Diagnosis Hypertension, essential- Primary Unspecified essential hypertension Nonrheumatic aortic valve stenosis Obstructive sleep apnea Obstructive sleep apnea (adult) (pediatric) Pure hypercholesterolemia documented in this encounter Care Teams Cord Tire Builder Relationship Specialty Start Date End Date Rosa Cazares MD PCP - General Family Medicine 02/22/23 documented as of this encounter
--- OUTSIDE RECORDS SUMMARY | 2024-11-13 12:22 | XMS_ITS | Encounter Summary ---
Author Organization [facility] Address [address] [place] [address] Care Team Providers Care Top Waddy Name Role Phone Rosa Cazares MD Primary Care Provider [phone] Reason for Visit * Reason Comments Med Refill Encounter Details Date Type Department Care Team (Late st Contact Info) Description 11/12/2024 Refill [facility] [address] [address] Marylou Smith, JUICE STANDARDIZER [address] [address] Med Refill Social History Tobacco Use Types Packs/Day Years [...] Encounters Date Type Department Care Team (Late Contact Info) Description 04/28/2025 10:30 AM EST Ancillary Procedure [facility] [address] [address] 04/28/2025 11:30 AM EST Office Visit [facility] [address] [place] [address] Pebbles Oden MD [address] [place] [address] documented as of this encounter Visit Diagnoses Not on filedocumented in this encounter Care Teams Top Waddy Relationship Specialty Start Date End Date Rosa Cazares MD PCP - General Family Medicine 02/22/23 documented as of this encounter
--- OUTSIDE RECORDS SUMMARY | 2024-11-13 12:22 | XMS_ITS | Encounter Summary ---
Author Organization [employer] ([place], [place], [place], [place]) Address [address] [place] [address] Care Team Providers Care Grinder Operator Surface Tool Name Role Phone Unavailable Primary Care Provider Unavailabl e Encounter Details Date Type Department Care Team (Late st Contact Info) Description 06/15/2018 Transcribed Document [facility] Family Medicine [facility] [place] [address] ProviderCarolina MD [address] [place] [address] Social History Tobacco Use Types [...] 09/08/2005 Document Revised: 07/28/2016 Document Reviewed: 07/24/2013 [employer] Interactive Patient Education ? 2017 [employer] Radial Site Care Introduction Refer to [...] you are awake and alert. ??? Take aivs-gmr-zvallar and prescription medicines only as told by [...] 06/11/2016 Elsevier Interactive Patient Education ? 2017 [employer] documented in this encounter Plan of Treatment Not on file documented as of this encounter Visit Diagnoses Not on filedocumented in this encounter
--- OUTSIDE RECORDS SUMMARY | 2024-11-13 12:22 | XMS_ITS | Encounter Summary ---
Author Organization [facility] Address [address] [place] [address] Care Team Providers Care Rouge Sifter And Miller Name Role Phone Rosa Cazares MD Primary Care Provider [phone] Encounter Details Date Type Department Care Team [...] Description 04/28/2025 10:30 AM EST Ancillary Procedure [facility] [address] [phone] 04/28/2025 11:30 AM EST Office Visit [facility] [address] [phone] Pebbles Oden MD [address] [address] documented as of this encounter Visit Diagnoses Not on filedocumented in this encounter Care Teams Rouge Sifter And Miller Relationship Specialty Start Date End Date Rosa Cazares MD PCP - General Family Medicine 02/22/23 documented as of this encounter
--- OUTSIDE RECORDS SUMMARY | 2024-11-13 12:22 | XMS_ITS | Referral Summary ---
Author Organization [employer] ([place], [place], [place], [place]) Address [address] [place] [address] Care Team Providers Care Telecommunications Field Technician Name Role Phone Unavailable Primary Care Provider [...]
--- OUTSIDE RECORDS SUMMARY | 2024-11-13 12:22 | XMS_ITS | Clinical Summary ---
Author Organization [facility] [facility] Address [address] [place] [address] Care Team Providers Care Master [place] Name Role Phone Rosa Cazares MD Primary Care Provider [phone] Allergies No known active allergies Medications finasteride (PROSCAR) 5 MG tablet finasteride 5 mg tablet Take 1 tablet every day by oral route. Active hydroCHLOROt hiazide (HYDRODIURIL ) 25 MG tablet hydrochlorothiazide 25 mg tablet TAKE ONE TABLET BY MOUTH EVERY MORNING Activ e lisinopril (PRINIVIL,ZE STRIL) 20 MG tablet lisinopril 20 mg tablet TAKE 1 TABLET ONCE DAILY Active diclofenac (VOLTAREN) 75 MG EC tablet Take 1 tablet by mouth Every 12 (Twelve) Hours. 024 Active calcipotrien e (DOVONOX) 0.005 % ointment Apply a thin [...] hr capsule Alternating days with proscar Active chlorhexidin e (PERIDEX) 0.12 % solution place 15 milliliters in the mouth by mucous membrane route 2 times per day after brushing teeth, swish in mouth for 30 seconds then spit out Act rama HYDROcodone- acetaminophe n (NORCO) 5-325 MG per tablet take 1 tablet by oral route every 6 hours as needed for pain Active pimecrolimus (ELIDEL) 1 % cream Apply topically to the appropriate area as directed See Admin Instructions. Apply to the affected areas twice daily 025 Active atorvastatin (LIPITOR) 40 MG tablet TAKE ONE TABLET BY MOUTH ONCE DAILY 90 tablet 3 025 Active atorvastatin (LIPITOR) 40 MG tablet TAKE ONE TABLET BY MOUTH ONCE DAILY 90 tablet 3 024 2024 Discontinued silodosin (RAPAFLO) 8 MG capsule capsule Take 1 capsule by mouth Daily. 2024 Discontinued( *Therapy completed) Encounters Date Type Department Care Team Description 11/12/2024 Refill [facility] [address] [address] Marylou Smith APRN Med Refill 10/23/2024 11:15 AM EDT Office Visit [facility] [address] [phone] Pebbles Oden MD Hypertension, essential (Primary Dx); Nonrheumatic aortic valve stenosis; Obstructive sleep apnea; Pure hypercholesterolemia 10/23/2024 Travel 08/19/2024 Telephone [facility] [address] [phone] Mary Gaviria APRN from Last 3 Months [...] Description 04/28/2025 10:30 AM EST Ancillary Procedure [facility] [address] [address] 04/28/2025 11:30 AM EST Office Visit [facility] [address] [address] Pebbles Oden [...] Months Results * Pulmonary Results Scan (10/18/2024) Pebbles Oden MD PFT ORDERABLES Final Result * LABS SCANNED (08/27/2024) us Pebbles Oden MD LAB BLOOD ORDERABLES Final R esult from Last 3 Months Insurance [employer] HMO Care Teams Master [place] Relationship Specialty Start Date End Date Rosa Cazares MD PCP - General Family Medicine 02/22/23
--- OUTSIDE RECORDS SUMMARY | 2024-11-13 12:22 | XMS_ITS | Encounter Summary ---
Author Organization [employer] ([place], [place], [place], [place]) Address [address] [place] [address] Care Team Providers Care Roll Sheeting Cutter Name Role Phone Unavailable Primary Care Provider Unavailabl e Encounter Details Date Type Department Care Team (Late st Contact Info) Description 06/15/2018 Transcribed Document [facility] Family Medicine [address] [place] [address] ProviderCarolina MD [address] [place] [address] Social History Tobacco Use Types [...] Source : Stated Height Entry Format : [place] Height, Feet : 5 ft(Converted to: 152 cm, 60 Inch) Height, Inches : 10 Inch(Converted to: 0 ft 10 Inch, 25.40 cm) Clinical Height : 177.8 cm Weight Source : Standing scale Weight Entry Format : [place] Clinical Dosing Weight : 97.73 kg Weight, Pounds : 215 lb Body Surface Area (BSA) : 2.15 m2 Body Mass Index : 30.9 kg/m2 (HI) [place] Body Weight : 72 kg Liz Dutton [...] Galeas Support Person/Pt Rep Contact Information : [phone] Want Family/Rep/Phys Notified of Admit : No Emergency Contact #1 : Lauren Galeas Emergency Contact #1 Emergency Contact #1 Relationship : Emergency Contact #2 : NA Emergency Contact #2 Phone Number : NA Emergency Contact #2 Relationship : NA Information Obtained From : Patient Primary Language : South Korean Preferred Communication Mode : Verbal Communication Barrier [...] Scale Risk Level : 0-24 Low Risk [place] Fall Interventions : Adequate lighting, Bed in [...]
--- OUTSIDE RECORDS SUMMARY | 2024-11-13 12:22 | XMS_ITS | Encounter Summary ---
Author Organization [employer] ([place], [place], [place], [place]) Address [address] [place] [address] Care Team Providers Care Tray Setter Name Role Phone Unavailable Primary Care Provider Unavailabl e Encounter Details Date Type Department Care Team (Late st Contact Info) Description 06/15/2018 Transcribed Document [facility] Family Medicine [address] [place] [address] ProviderCarolina MD [address] [place] [address] Social History Tobacco Use Types [...]
--- OUTSIDE RECORDS SUMMARY | 2024-11-13 12:22 | XMS_ITS | Encounter Summary ---
Author Organization [employer] ([place], [place], [place], [place]) Address [address] [place] [address] Care Team Providers Care It Program Auditor Name Role Phone Unavailable Primary Care Provider Unavailabl e Encounter Details Date Type Department Care Team (Late st Contact Info) Description 06/15/2018 Transcribed Document [facility] Family Medicine [address] [place] [address] ProviderCarolina MD [address] [place], [place] [id number] Social History Tobacco Use Types Packs/Day Years [...] Description of Event : Pt returned from [place]orer [place] with right radial TR band with 12 [...]
--- OUTSIDE RECORDS SUMMARY | 2024-11-13 12:22 | XMS_ITS | Encounter Summary ---
Author Organization [employer] ([place], [place], [place], [place]) Address [address] [place] [address] Care Team Providers Care Traditional Chinese Herbalist Name Role Phone Unavailable Primary Care Provider Unavailabl e Encounter Details Date Type Department Care Team (Late st Contact Info) Description 06/15/2018 Transcribed Document [facility] [facility] [place] [address] [place] [address] ProviderCarolina MD [address] [id number] Social History Tobacco Use Types Packs/Day Years [...] list: All Problems Hypertension / SNOMED CT 74693328 / Confirmed Hyperlipidemia / SNOMED CT 47149740 / Confirmed Hard of hearing / SNOMED CT 755418838 / Confirmed Angina / SNOMED CT 287520892 / Confirmed SOB (shortness of breath) / SNOMED CT 441184401 / Confirmed At risk for sleep apnea / IMO [id number] / Confirmed Resolved: Cataract / SNOMED CT 401884240 Histories No education data available. Social & Psychosocial Habits No Data Available Past Medical History: Active Hyperlipidemia (44976587) Hypertension (29815422) Family History: Entire family history is negative. [...] of motion, Normal strength. Integumentary: Warm, Dry, [place]. Neurologic: Alert, Oriented. Psychiatric: Cooperative. Review / [...] and written consent. Agree. Will procede with [facility] this AM as polanned. documented in this encounter Plan of Treatment Not on file documented as of this encounter Visit Diagnoses Not on filedocumented in this encounter
--- OUTSIDE RECORDS SUMMARY | 2024-11-13 12:22 | XMS_ITS | Clinical Summary ---
Author Organization [employer] ([place], [place], [place], [place]) Address [address] [place] [address] Care Team Providers Care Photographer Name Role Phone Unavailable Primary Care Provider [...]
--- OUTSIDE RECORDS SUMMARY | 2024-11-13 12:22 | XMS_ITS | Encounter Summary ---
Author Organization [employer] ([place], [place], [place], [place]) Address [address] [place] [address] Care Team Providers Care Housefellow Name Role Phone Unavailable Primary Care Provider Unavailabl e Encounter Details Date Type Department Care Team (Late st Contact Info) Description 06/15/2018 Transcribed Document [facility] [place] Family Medicine [address] [place] [address] ProviderCarolina MD [address] [place] [address] Social History Tobacco Use Types [...] Mancera MD - 06/15/2018 11:55 AM CDT [facility] [place] [address] PIZARRO NASH Gail :1945 Visit [...] instructed Where: [address] [place] [address] [place] [address] [facility] (1) Medications What How Much When Instructions [...] 09/08/2005 Document Revised: 07/28/2016 Document Reviewed: 07/24/2013 [employer] Interactive Patient Education ?? 2017 [employer] Radial Site Care Introduction Refer to [...] you are awake and alert. ??? Take iukz-vdc-gboygei and prescription medicines only as told by [...] 06/11/2016 Elsevier Interactive Patient Education ?? 2017 [employer] Emergency Awareness and Preventative Care STROKE [...] Assistance with quitting is available by contacting 5-753-OIIJ-NOW. This is a free resource providing counseling, support, and referral. Or you may contact your personal physician. [place] Suicide Prevention Lifeline: The National Suicide Prevention [...] Be sure to sign up for the [facility] patient portal, which gives you 26/09 access to your medical information ??? including these discharge instructions ??? using your computer, smartphone, or tablet. Just go to Sqrrl to get started. Questions? Call . Test Results Laboratory or Other Results This Visit (last charted value for your 06/15/2018 visit) Hematology 06/15/18 08:44:00 Platelet Count: 201 K/uL -- Normal range between ( 163 and 369 ) Patient Name:NASH PIZARRO I have received and understand this information and was given the opportunity to ask questions. Patient/Industrial Laborer Name: Patient/Industrial Laborer Signature: Relationship to Patient: Clinician/Hospital Industrial Laborer Signature: Date: documented in this encounter Plan of Treatment Not on file documented as of this encounter Visit Diagnoses Not on filedocumented in this encounter
== END 2024-11-13 23:59 | disposition home or self-care (01) ==
LOC: LAB 12:19
PROVIDERS: PCP Family Medicine; Visit Provider Internal Medicine Pulmonary Disease
DX: J47.9 Bronchiectasis, uncomplicated (principal)